=== PATIENT | male | born 1960 | race Hispanic/Latino ===

== ENCOUNTER 2018-03-25 15:31 | Emergency (ER) | payer SELFPAY ==
[2018-03-25] MEDS ORDERED: FLUORESCEIN SODIUM 0.6 MG/WRAP ONE (16:28)
[2018-03-25] MEDS ORDERED: TETRACAINE HCL 0.5% 2ML OPTH ONE (16:33)
--- NOTE | 2018-03-25 17:02 | EDPHYS ---
Physician Documentation [facility] Name: Natan Johnson Age: 58 yrs Sex: Male : 1960 Arrival Date: 03/25/2018 Time: 15:33 Bed 30 Private MD: None, None ED Physician Lisandro Bentley HPI: 03/25 15:45 This 58 yrs old Male presents to ER via Ambulatory with complaints of Left Eye pm1 Redness. 15:45 The patient is experiencing redness, The patient sustained None. to the left eye, pm1 caused by an unknown mechanism. Onset: The symptoms/episode began/occurred 2 day(s) ago. Duration: the symptoms are continuous. Aggravated by nothing. Alleviated by nothing. Associated signs and symptoms: Pertinent negatives: fever. Patient does not utilize any form of vision correction. Severity of symptoms: in the emergency department the symptoms are unchanged. The patient has experienced similar episodes in the past, multiple times. The patient has not recently seen a physician. Historical: - Allergies: 15:40 No Known Allergies; sg - Home Meds: 15:40 Metformin Oral [Active]; Blood Pressure Med [Active]; sg - PMHx: 15:40 Diabetes - NIDDM; Hypertension; sg - PSHx: 15:40 None; sg - Immunization history:: Adult Immunizations not up to date. - Social history:: Smoking status: Patient uses tobacco products, smokes one-half pack cigarettes per day. - Ebola Screening: : Patient negative for fever greater than or equal to 101.5 degrees Fahrenheit, and additional compatible Ebola Virus Disease symptoms Patient denies exposure to infectious person Patient denies travel to an Ebola-affected area in the 21 days before illness onset No symptoms or risks identified at this time. ROS: 15:45 Constitutional: Negative for fever, chills, and weight loss. pm1 15:45 ENT: Negative for injury, pain, and discharge, Neck: Negative for injury, pain, and swelling, Cardiovascular: Negative for chest pain, palpitations, and edema, Respiratory: Negative for shortness of breath, cough, wheezing, and pleuritic chest pain, Abdomen/GI: Negative for abdominal pain, nausea, vomiting, diarrhea, and constipation, Back: Negative for injury and pain, MS/Extremity: Negative for injury and deformity, Skin: Negative for injury, rash, and discoloration, Neuro: Negative for headache, weakness, numbness, tingling, and seizure. 15:45 Eyes: Positive for redness, Negative for discharge, itching, matting, pain, swelling, vision loss. Exam: 15:45 Constitutional: This is a well developed, well nourished patient who is awake, alert, pm1 and in no acute distress. Head/Face: Normocephalic, atraumatic. 15:45 Chest/axilla: Normal chest wall appearance and motion. Nontender with no deformity. No lesions are appreciated. Cardiovascular: Regular rate and rhythm with a normal S1 and S2. No gallops, murmurs, or rubs. Normal PMI, no JVD. No pulse deficits. Respiratory: Lungs have equal breath sounds bilaterally, clear to auscultation and percussion. No rales, rhonchi or wheezes noted. No increased work of breathing, no retractions or nasal flaring. Back: No spinal tenderness. No costovertebral tenderness. Full range of motion. Skin: Warm, dry with normal turgor. Normal color with no rashes, no lesions, and no evidence of cellulitis. MS/ Extremity: Pulses equal, no cyanosis. Neurovascular intact. Full, normal range of motion. 15:45 Eyes: Periorbital structures: appear normal, no abrasion, no cellulitis, no contusion, no ecchymosis, no erythema, no laceration, no swelling, Pupils: no acute changes, normal size, shape is regular, normal accomodation, normal reaction to light, Extraocular movements: intact throughout, Conjunctiva: chemosis, is not appreciated, exudate, is not appreciated, subconjunctival hemorrhage(s), seen in the left eye, at 9 o'clock, Corneas: are normal, Anterior chamber: normal, no hyphema, in left eye, Lids and lashes: appear normal, bilaterally, no evidence of trauma, drainage, is not appreciated, edema, is not appreciated. 15:45 Neuro: Orientation: is normal, Motor: is normal, moves all fours, Gait: is steady, at a normal pace, without difficulty. 16:55 Visual Acuity: I have reviewed the nursing documentation. pm1 16:55 Eyes: Corneas: abrasion, that is small, approximately 3 mm(s), on the left, at 7 o'clock, foreign body, is not appreciated, a fluorescein strip employed to appreciate the findings. Vital Signs: 15:40 BP 168 / 87; Pulse 71; Resp 14 S; Temp 97.9(TE); Pulse Ox 96% on R/A; Weight 81.65 kg sg (R); Height 5 ft. 7 in. (170.18 cm) (R); Pain 3/10; 16:31 BP 136 / 79; Pulse 67; Resp 17; Pulse Ox 97% on R/A; tw2 17:11 BP 133 / 79; Pulse 80; Resp 18; Pulse Ox 100% on R/A; Pain 0/10; mg2 15:40 Body Mass Index 28.19 (81.65 kg, 170.18 cm) Visual Acuity: 15:58 Left Eye Visual acuity 20/50, Pupil size 2 mm, Normal, React To Light, Reactive To mg2 Accomodation; Right Eye Visual acuity 20/20, Pupil size 2 mm, Normal, React To Light, Reactive To Accomodation; Without Lenses; MDM: 15:39 Patient medically screened. pm1 15:50 Data reviewed: vital signs. Data interpreted: Pulse oximetry: on room air is 96 %. pm1 Interpretation: normal. 16:58 Counseling: I had a detailed discussion with the patient and/or guardian regarding: the pm1 historical points, exam findings, and any diagnostic results supporting the discharge/admit diagnosis, the need for outpatient follow up, an opthalmologist, to return to the emergency department if symptoms worsen or persist or if there are any questions or concerns that arise at home. 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 Exp: mg2 05/13/2020. Lot #: [id number]. } Route: IM; Site: right deltoid; 17:11 Follow up: Response: No adverse reaction; Medication administered at discharge. mg2 17:10 Drug: Gentamicin Drops 0.3 % 2 drops Route: Ophthalmic; Site: left eye; mg2 17:10 Follow up: Response: No adverse reaction; Medication administered at discharge. mg2 Disposition: 03/26 06:45 Co-signature as Attending Physician, Lisandro Bentley MD I agree with the assessment and kaiden plan of care. Disposition: 03/25/18 17:01 Discharged to Home. Impression: Injury of conjunctiva and corneal abrasion without foreign body, Conjunctival hemorrhage, left eye. - Condition is Stable. - Discharge Instructions: Corneal Abrasion, Subconjunctival Hemorrhage. - Prescriptions for Gentamicin 0.3 % Ophthalmic Drops - instill 1 drop by OPHTHALMIC route every 4 hours for 7 days; 1 bottle. - Medication Reconciliation Form, Thank You Letter, Antibiotic Education form. - Follow up: Emergency Department; When: As needed; Reason: Worsening of condition. Follow up: Harshad Marin MD; When: 2 - 3 days; Reason: Recheck today's complaints, Continuance of care, Re-evaluation by your physician. - Problem is new. - Symptoms have improved. Signatures: Phil Mendoza RN RN Lisandro Bentley MD MD cha Marinas, Patrick, JEANNINE BLOCKMAN pm1 Obi Wilhelm RN RN mg2 Corrections: (The following items were deleted from the chart) 03/25 17:12 17:01 03/25/2018 17:01 Discharged to Home. Impression: Injury of conjunctiva and mg2 corneal abrasion without foreign body; Conjunctival hemorrhage, left eye. Condition is Stable. Forms are Medication Reconciliation Form, Thank You Letter, Antibiotic Education, Prescription Opioid Use. Follow up: Emergency Department; When: As needed; Reason: Worsening of condition. Follow up: Harshad Marin; When: 2 - 3 days; Reason: Recheck today's complaints, Continuance of care, Re-evaluation by your physician. Problem is new. Symptoms have improved. pm1
--- NOTE | 2018-03-25 17:02 | ER ---
Nurse's Notes [facility] Name: Natan Johnson Age: 58 yrs Sex: Male : 1960 Arrival Date: 03/25/2018 Time: 15:33 Bed 30 Private MD: None, None Diagnosis: Injury of conjunctiva and corneal abrasion without foreign body;Conjunctival hemorrhage, left eye Presentation: 03/25 15:30 Presenting complaint: Patient states: Left eye swelling, redness to sclera, and blurred sg vision since two days ago, denies trauma or foreign body. Transition of care: patient was not received from another setting of care. Onset of symptoms was March 25, 2018. Risk Assessment: Do you want to hurt yourself or someone else? Patient reports no desire to harm self or others. Initial Sepsis Screen: Does the patient meet any 2 criteria? No. Patient's initial sepsis screen is negative. Does the patient have a suspected source of infection? No. Patient's initial sepsis screen is negative. Care prior to arrival: None. 15:30 Method Of Arrival: Ambulatory sg 15:30 Acuity: JEB 4 sg Historical: - Allergies: 15:40 No Known Allergies; sg - Home Meds: 15:40 Metformin Oral [Active]; Blood Pressure Med [Active]; sg - PMHx: 15:40 Diabetes - NIDDM; Hypertension; sg - PSHx: 15:40 None; sg - Immunization history:: Adult Immunizations not up to date. - Social history:: Smoking status: Patient uses tobacco products, smokes one-half pack cigarettes per day. - Ebola Screening: : Patient negative for fever greater than or equal to 101.5 degrees Fahrenheit, and additional compatible Ebola Virus Disease symptoms Patient denies exposure to infectious person Patient denies travel to an Ebola-affected area in the 21 days before illness onset No symptoms or risks identified at this time. Screenin:39 Abuse screen: Denies threats or abuse. Denies injuries from another. Nutritional mg2 screening: No deficits noted. Tuberculosis screening: No symptoms or risk factors identified. Fall Risk None identified. Assessment: 15:43 General: Appears in no apparent distress. comfortable, Behavior is calm, cooperative. mg2 Pain: Complains of pain in left eye Pain does not radiate. Pain currently is 4 out of 10 on a pain scale. Quality of pain is described as aching, Pain began gradually, 1 day ago. Is intermittent. Neuro: Level of Consciousness is awake, alert, obeys commands, Oriented to person, place, time, situation. Cardiovascular: Capillary refill < 3 seconds Patient's skin is warm and dry. Respiratory: Airway is patent Respiratory effort is even, unlabored, Respiratory pattern is regular, symmetrical. GI: No signs and/or symptoms were reported involving the gastrointestinal system. : No signs and/or symptoms were reported regarding the genitourinary system. EENT: Eyes are tearing on inner aspect of conjunctiva of left eye redness. Derm: Skin is intact, Skin is pink, warm \T\ dry. normal. Musculoskeletal: Circulation, motion, and sensation intact. Vital Signs: 15:40 BP 168 / 87; Pulse 71; Resp 14 S; Temp 97.9(TE); Pulse Ox 96% on R/A; Weight 81.65 kg sg (R); Height 5 ft. 7 in. (170.18 cm) (R); Pain 3/10; 16:31 BP 136 / 79; Pulse 67; Resp 17; Pulse Ox 97% on R/A; tw2 17:11 BP 133 / 79; Pulse 80; Resp 18; Pulse Ox 100% on R/A; Pain 0/10; mg2 15:40 Body Mass Index 28.19 (81.65 kg, 170.18 cm) sg Visual Acuity: 15:58 Left Eye Visual acuity 20/50, Pupil size 2 mm, Normal, React To Light, Reactive To mg2 Accomodation; Right Eye Visual acuity 20/20, Pupil size 2 mm, Normal, React To Light, Reactive To Accomodation; Without Lenses; ED Course: 15:33 Patient arrived in ED. sb2 15:33 None, None is Private Physician. sb2 15:38 Corey Helms NP is PHCP. pm1 15:38 Lisandro Bentley MD is Attending Physician. pm1 15:39 Obi Wilhelm, FARIDEH is Primary Nurse. mg2 15:39 Triage completed. sg 15:39 Patient has correct armband on for positive identification. Bed in low position. Pulse mg2 ox on. NIBP on. Door closed. Warm blanket given. 15:45 Arm band placed on left wrist. mg2 16:59 Harshad Marin MD is Referral Physician. pm1 17:12 No provider procedures requiring assistance completed. Patient did not have IV access mg2 during this emergency room visit. 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 Exp: mg2 05/13/2020. Lot #: [id number]. } Route: IM; Site: right deltoid; 17:11 Follow up: Response: No adverse reaction; Medication administered at discharge. mg2 17:10 Drug: Gentamicin Drops 0.3 % 2 drops Route: Ophthalmic; Site: left eye; mg2 17:10 Follow up: Response: No adverse reaction; Medication administered at discharge. mg2 Outcome: 17:01 Discharge ordered by MD. pm1 17:12 Discharged to home ambulatory, with family. mg2 17:12 Condition: good 17:12 Discharge instructions given to patient, family, Instructed on discharge instructions, follow up and referral plans. medication usage, Demonstrated understanding of instructions, follow-up care, medications, Prescriptions given X 1. 17:12 Patient left the ED. mg2 Signatures: Phil Mendoza RN RN sg Corey Helms NP TEST AUTOMATION ARCHITECT pm1 Francheska Le RN RN tw2 Danica Romero sb2 Obi Wilhelm, FARIDEH RN mg2 Corrections: (The following items were deleted from the chart) 16:15 15:58 Right Eye Without Lenses, 20/20, Normal, Left Eye Without Lenses,, 50 ft/15 meter mg2 for left eye, blurry mg2
[2018-03-25] MEDS ORDERED: GENTAMICIN 0.3% OPTH DROP 5ML ONE (17:05)
[2018-03-25] MEDS ORDERED: TETANUS & DIPHTHERIA TOX,ADULT 0.5 ML VIAL ONE (17:06)
[2018-03-25 17:18] VITALS: TEMP 97.9
[2018-03-25 17:20] VITALS: BP 133/79; O2SAT 100
== END 2018-03-25 17:12 | disposition home or self-care (01) ==
LOC: ER 15:31
DX: S05.02XA Injury of conjunctiva and corneal abrasion without foreign body, left eye, initial encounter (principal); H11.32 Conjunctival hemorrhage, left eye; I10 Essential (primary) hypertension; E11.9 Type 2 diabetes mellitus without complications; F17.210 Nicotine dependence, cigarettes, uncomplicated; Z23 Encounter for immunization
CPT/HCPCS: 90714; 99283

== ENCOUNTER 2018-05-27 16:04 | Emergency (ER) | payer SELFPAY ==
[2018-05-27] MEDS ORDERED: NA CHLORIDE 0.9% 1,000 ML ONE (16:25)
[2018-05-27 16:26] LABS: Absolute Lymphocytes (CBC) 1.8 K/uL (0.7-4.9); Absolute Monocytes 0.6 K/uL (0.1-1.3); Absolute Neutrophil 6.3 K/uL (1.8-8.0); Basophils % 0.5 % (0-1.3); Eosinophils % 1.7 % (0-4.4); Hematocrit 46.1 % (39.6-49.0); Lymphocytes % 20.4 % (15.3-44.8); MCV 87.6 fL (80-100); Monocytes % 6.9 % (3.3-12.3); Protime INR 1.02; RBC Red Blood Cell Count 5.27 M/uL (4.33-5.43)
[2018-05-27] MEDS ORDERED: FOLIC ACID 5 MG/ML VIAL ONE (16:27)
--- NOTE | 2018-05-27 16:31 | RAD REPORT ---
EXAM DESCRIPTION: CT - Head Brain Wo Cont - 05/27/2018 4:16 pm CLINICAL HISTORY: Left-sided facial numbness arm and leg weakness, stroke symptoms COMPARISON: CT head August 2015 TECHNIQUE: Axial 5 mm thick images of the head were obtained without IV contrast. All CT scans are performed using dose optimization technique as appropriate and may include automated exposure control or mA/KV adjustment according to patient size. FINDINGS: No intracranial hemorrhage, mass, edema or shift of mid-line structures. No acute cortical based infarction identified. No cortical edema or sulcal effacement. The patient has asymmetric righ t cerebral atrophy change with little atrophy on the left. Chronic ischemic changes are seen in the r ight cerebral white matter and there is a small 1.5 centimeter area of old infarction in the right pa rietooccipital junction. Arterial and vascular calcifications are seen. Ventricles are in proportion to the volume loss. Mastoid air cells and visualized portions of the paranasal sinuses are clear. No acute bony findings. Findings telephoned to doctor Bentley 4:27 p.m. IMPRESSION: No intracranial hemorrhage and no acute cortical based infarction identified. 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 Nonhemorrhagic right cerebral infarctions could easily be masked by the chronic changes.
[2018-05-27 16:43] LABS: ALT/SGPT 18 U/L (12-78); AST/SGOT 10 U/L (15-37); Alkaline Phosphatase 132 U/L (45-117); BUN Blood Urea Nitrogen 21 mg/dL (7-18); Bicarbonate 26 mmol/L (21-32); Bilirubin Direct 0.1 mg/dL (0-0.2); Bilirubin Total 0.6 mg/dL (0.2-1.0); Glucose Level 178 mg/dL (74-106); Lipase 256 U/L (73-393); Magnesium 2.2 mg/dL (1.8-2.4); NT PRO-BNP 48 pg/mL (<125); Potassium 3.8 mmol/L (3.5-5.1); Sodium Level 139 mmol/L (136-145); Troponin (Emerg Dept Use Only) < 0.02 ng/mL (0.0-0.045)
--- NOTE | 2018-05-27 17:08 | RAD REPORT ---
EXAM DESCRIPTION: RAD - Chest Single View - 05/27/2018 4:42 pm CLINICAL HISTORY: Cough, left-sided extremity weakness COMPARISON: October 26 TECHNIQUE: AP portable chest image was obtained 1637 hours . FINDINGS: Lung volumes are very low. No acute right lung field finding. Ill-defined opacification lo wer left lung field may simply be atelectasis. Pneumonia is unlikely but not excluded. Follow-up can be performed with improved inspiratory effort. Heart size and vasculature within normal limits for sh allow inspiration. No measurable pleural effusion and no pneumothorax. No gross bony abnormality seen . No acute aortic findings suspected. IMPRESSION: Limited portable study due to very shallow inspiration. Minimal lateral left base infiltrate not entirely excluded.
--- NOTE | 2018-05-27 17:19 | EDPHYS ---
Physician Documentation [facility] Name: Natan Johnson Age: 58 yrs Sex: Male : 1960 Arrival Date: 05/27/2018 Time: 16:06 Bed 20 Private MD: ED Physician Lisandro Bentley HPI: 05/27 16:14 This 58 yrs old Male presents to ER via EMS with complaints of Numbness Of Arm.kaiden Historical: - Allergies: 16:11 No Known Allergies; jl7 - Home Meds: 16:11 blood pressure med [Active]; Metformin Oral [Active]; jl7 - PMHx: 16:11 Diabetes - NIDDM; Hypertension; jl7 - PSHx: 16:11 None; jl7 - Immunization history:: Adult Immunizations up to date. - Social history:: Smoking status: Patient uses tobacco products, smokes one-half pack cigarettes per day. - Ebola Screening: : No symptoms or risks identified at this time. ROS: 16:15 Constitutional: Negative for fever, chills, and weight loss, Eyes: Negative for injury, kaiden pain, redness, and discharge, ENT: Negative for injury, pain, and discharge, Neck: Negative for injury, pain, and swelling, Cardiovascular: Negative for chest pain, palpitations, and edema, Respiratory: Negative for shortness of breath, cough, wheezing, and pleuritic chest pain, Abdomen/GI: Negative for abdominal pain, nausea, vomiting, diarrhea, and constipation, Back: Negative for injury and pain, : Negative for injury, bleeding, discharge, and swelling, MS/Extremity: Negative for injury and deformity, Skin: Negative for injury, rash, and discoloration, Psych: Negative for depression, anxiety, suicide ideation, homicidal ideation, and hallucinations, Allergy/Immunology: Negative for hives, rash, and allergies, Endocrine: Negative for neck swelling, polydipsia, polyuria, polyphagia, and marked weight changes, Hematologic/Lymphatic: Negative for swollen nodes, abnormal bleeding, and unusual bruising. 16:15 Neuro: Positive for dizziness, speech changes, tingling, weakness, of the face, left arm and left leg. Exam: 16:15 Constitutional: This is a well developed, well nourished patient who is awake, alert, kaiden and in no acute distress. Head/Face: Normocephalic, atraumatic. Eyes: Pupils equal round and reactive to light, extra-ocular motions intact. Lids and lashes normal. Conjunctiva and sclera are non-icteric and not injected. Cornea within normal limits. Periorbital areas with no swelling, redness, or edema. ENT: Nares patent. No nasal discharge, no septal abnormalities noted. Tympanic membranes are normal and external auditory canals are clear. Oropharynx with no redness, swelling, or masses, exudates, or evidence of obstruction, uvula midline. Mucous membranes moist. Neck: Trachea midline, no thyromegaly or masses palpated, and no cervical lymphadenopathy. Supple, full range of motion without nuchal rigidity, or vertebral point tenderness. No Meningismus. Chest/axilla: Normal chest wall appearance and motion. Nontender with no deformity. No lesions are appreciated. Cardiovascular: Regular rate and rhythm with a normal S1 and S2. No gallops, murmurs, or rubs. Normal PMI, no JVD. No pulse deficits. Respiratory: Lungs have equal breath sounds bilaterally, clear to auscultation and percussion. No rales, rhonchi or wheezes noted. No increased work of breathing, no retractions or nasal flaring. Abdomen/GI: Soft, non-tender, with normal bowel sounds. No distension or tympany. No guarding or rebound. No evidence of tenderness throughout. Back: No spinal tenderness. No costovertebral tenderness. Full range of motion. Male : Normal genitalia with no discharge or lesions. Skin: Warm, dry with normal turgor. Normal color with no rashes, no lesions, and no evidence of cellulitis. MS/ Extremity: Pulses equal, no cyanosis. Neurovascular intact. Full, normal range of motion. Psych: Awake, alert, with orientation to person, place and time. Behavior, mood, and affect are within normal limits. 16:15 Neuro: Orientation: is normal, appropriate for stated age, no acute changes, Mentation: is normal, appropriate for stated age, no acute changes, Memory: is normal, appropriate for stated age, no acute changes, Cranial nerves: grossly normal, is grossly normal based on the patient's age, no acute changes, Motor: strength is 4/5 in the left arm and left leg, Sensation: numbness, that is mild, of the face, left arm and left leg, Gait: not tested. Deep tendon reflexes are 2+ (normal) in the bilateral brachioradialis, bicep, tricep and patellar and Achilles tendons, Babinski testing is normal, seizure activity, is not displayed by the patient. 17:18 Radiologist reports: see report [facility] Vital Signs: 16:11 BP 150 / 94; Pulse 82; Resp 16 S; Temp 98.6(O); Pulse Ox 97% on R/A; Weight 84.82 kg 7 (R); Height 5 ft. 7 in. (170.18 cm) (R); Pain 0/10; 17:06 BP 122 / 70; Pulse 70; Resp 15; Pulse Ox 96% on R/A; 5 17:43 BP 153 / 81; Pulse 84; Resp 16; Pulse Ox 100% ; jl7 18:09 BP 179 / 89; Pulse 68; Resp 16 S; Pulse Ox 100% on R/A; jl7 16:11 Body Mass Index 29.29 (84.82 kg, 170.18 cm) 7 NIH Stroke Scale Scores: 16:18 NIHSS Score: 1 [facility] 17:18 NIHSS Score: 3 [facility] MDM: 16:06 Patient medically screened. [facility] 16:17 Data reviewed: vital signs, nurses notes, lab test result(s), EKG, radiologic studies, [facility] CT scan, MRI, plain films. 17:22 ED course: symptoms greater than 4.5 hours, not a tpa candidate. [facility] 05/27 16:10 Order name: Basic Metabolic Panel; Complete Time: 17:13 [facility] 05/27 16:10 Order name: CBC with Diff; Complete Time: 17:13 [facility] 05/27 16:10 Order name: LFT's; Complete Time: 17:13 [facility] 05/27 16:10 Order name: Magnesium; Complete Time: 17:13 [facility] 05/27 16:10 Order name: NT PRO-BNP; Complete Time: 17:13 [facility] 05/27 16:10 Order name: PT-INR; Complete Time: 17:13 [facility] 05/27 16:10 Order name: Troponin (emerg Dept Use Only); Complete Time: 17:13 [facility] 05/27 16:10 Order name: XRAY Chest (1 view); Complete Time: 17:13 [facility] 05/27 16:10 Order name: Lipase; Complete Time: 17:13 [facility] 05/27 16:10 Order name: CT Head Brain wo Cont; Complete Time: 17:13 [facility] 05/27 16:10 Order name: CRP; Complete Time: 17:13 [facility] 05/27 16:10 Order name: Sed Rate; Complete Time: 17:13 [facility] 05/27 16:10 Order name: EKG; Complete Time: 16:11 [facility] 05/27 16:10 Order name: Cardiac monitoring; Complete Time: 16:18 [facility] 05/27 16:10 Order name: EKG - Nurse/Tech; Complete Time: 16:18 [facility] 05/27 16:10 Order name: IV Saline Lock; Complete Time: 16:18 [facility] 05/27 16:10 Order name: Labs collected and sent; Complete Time: 16:17 [facility] 05/27 16:10 Order name: O2 Per Protocol; Complete Time: 16:17 [facility] 05/27 16:10 Order name: O2 Sat Monitoring; Complete Time: 16:17 [facility] Administered Medications: 16:25 Drug: NS 0.9% 1000 ml Route: IV; Rate: 1 bolus; Site: right antecubital; jl7 17:15 Follow up: Response: No adverse reaction; IV Status: Completed infusion jl7 16:26 Drug: foLIC Acid 1 mg Route: IVPB; Site: right antecubital; jl7 16:27 Follow up: IV Status: Completed infusion jl7 17:42 Follow up: Response: No adverse reaction jl7 17:39 Drug: Aspirin Chewable Tablet 324 mg Route: PO; jl7 17:43 Follow up: Response: No adverse reaction jl7 17:39 Drug: PlaVIX 75 mg Route: PO; jl7 17:43 Follow up: Response: No adverse reaction jl7 Point of Care Testing: Blood Glucose: 16:11 Blood Glucose: 166 mg/dL; jl7 Ranges: Critical Glucose Levels:Adult <50 mg/dl or >400 mg/dl <40 mg/dl or >180 mg/dl Disposition: 05/27/18 17:18 Transfer ordered to [facility]. Diagnosis are Cerebral infarction, Aphasia following cerebral infarction, Type 2 diabetes mellitus, Essential (primary) hypertension. - Reason for transfer: Higher level of care. - Accepting physician is dr escalante. - Condition is Fair. - Problem is new. - Symptoms have improved. NIH Stroke Scale - NIH Stroke Score Date: 05/27/2018 Time: 16:18 Total Score = 1 1a. Level of Consciousness (LOC) - 0(Alert) 1b. Level of Consciousness (LOC) (Year \T\ Age) - 0(Both) 1c. LOC Commands (Open \T\ Closes Eyes/Auto Bumper Straightener) - 0(Both) 2. Best Gaze (Lateral Gaze Paresis) - 0(Normal) 3. Visual Field Loss - 0(No visual loss) 4. Facial Palsy - 0(Normal) 5a. Left Arm: Motor (10-second hold) - 0(No drift) 5b. Right Arm: Motor (10-second hold) - 0(No drift) 6a. Left Leg: Motor (5-second hold - always test supine) - 0(No drift) 6b. Right Leg: Motor (5-second hold - always test supine) - 0(No drift) 7. Limb Ataxia (finger/nose \T\ heel/butcher - test with eyes open) - 0(Absent) 8. Sensory Loss (pinprick arms/legs/face) - 1(Mild to moderate loss) 9. Best Language: Aphasia (description/naming/reading) - 0(No aphasia) 10. Dysarthria (speech clarity - read or repeat words) - 0(Normal) 11. Extinction and Inattention (visual/tactile/auditory/spatial/personal) - 0(No abnormality) Initials: jl7 NIH Stroke Scale - NIH Stroke Score Date: 05/27/2018 Time: 17:18 Total Score = 3 1a. Level of Consciousness (LOC) - 0(Alert) 1b. Level of Consciousness (LOC) (Year \T\ Age) - 0(Both) 1c. LOC Commands (Open \T\ Closes Eyes/Auto Bumper Straightener) - 0(Both) 2. Best Gaze (Lateral Gaze Paresis) - 0(Normal) 3. Visual Field Loss - 0(No visual loss) 4. Facial Palsy - 0(Normal) 5a. Left Arm: Motor (10-second hold) - 0(No drift) 5b. Right Arm: Motor (10-second hold) - 0(No drift) 6a. Left Leg: Motor (5-second hold - always test supine) - 0(No drift) 6b. Right Leg: Motor (5-second hold - always test supine) - 0(No drift) 7. Limb Ataxia (finger/nose \T\ heel/butcher - test with eyes open) - 1(Present in one limb) 8. Sensory Loss (pinprick arms/legs/face) - 1(Mild to moderate loss) 9. Best Language: Aphasia (description/naming/reading) - 1(Mild to moderate aphasia) 10. Dysarthria (speech clarity - read or repeat words) - 0(Normal) 11. Extinction and Inattention (visual/tactile/auditory/spatial/personal) - 0(No abnormality) Initials: kaiden Signatures: Dispatcher [employer] EDLisandro Fontanez MD MD cha Pena, Laura, RN RN lp1 Chely Montes RN RN jl7 Corrections: (The following items were deleted from the chart) 19:23 17:18 05/27/2018 17:18 Transfer ordered to [facility]. lp1 Diagnosis is Cerebral infarction; Aphasia following cerebral infarction; Type 2 diabetes mellitus; Essential (primary) hypertension. Reason for transfer: Higher level of care. Accepting physician is dr escalante. Condition is Fair. Problem is new. Symptoms have improved. kaiden
--- NOTE | 2018-05-27 17:19 | ER ---
Nurse's Notes [facility] Name: Natan Johnson Age: 58 yrs Sex: Male : 1960 Arrival Date: 05/27/2018 Time: 16:06 Bed 20 Private MD: Diagnosis: Cerebral infarction;Aphasia following cerebral infarction;Type 2 diabetes mellitus;Essential (primary) hypertension Presentation: 05/27 16:06 Presenting complaint: Presenting complaint: Patient states: Left sided numbness of jl7 face, arm, leg. First occurred last night at 2300 and again since 0600 this morning. Presenting complaint: EMS states: Family called us thinking he might be having a stroke, he slurred his words and is c/o numbness to the whole body. Transition of care: patient was not received from another setting of care. Onset of symptoms was May 26, 2018 at 23:00. Risk Assessment: Do you want to hurt yourself or someone else? Patient reports no desire to harm self or others. Initial Sepsis Screen: Does the patient meet any 2 criteria? No. Patient's initial sepsis screen is negative. Does the patient have a suspected source of infection? No. Patient's initial sepsis screen is negative. Care prior to arrival: None. 16:06 Method Of Arrival: EMS: [facility] 16:06 Acuity: JBE 2 jl7 Triage Assessment: 16:11 General: Appears in no apparent distress. uncomfortable, Behavior is calm, cooperative, jl7 appropriate for age. Pain: Denies pain. EENT: No signs and/or symptoms were reported regarding the EENT system. Neuro: Level of Consciousness is awake, alert, obeys commands, Oriented to person, place, time, situation, Drop Wire Aligner are equal bilaterally Moves all extremities. Speech is normal, Facial symmetry appears normal, Pupils are PERRLA. Cardiovascular: Patient's skin is warm and dry. Respiratory: Airway is patent Respiratory effort is even, unlabored, Respiratory pattern is regular, symmetrical. GI: No signs and/or symptoms were reported involving the gastrointestinal system. Patient currently denies diarrhea, nausea, vomiting. : No signs and/or symptoms were reported regarding the genitourinary system. Derm: Skin is pink, warm \T\ dry. Musculoskeletal: No signs and/or symptoms reported regarding the musculoskeletal system. Historical: - Allergies: 16:11 No Known Allergies; jl7 - Home Meds: 16:11 blood pressure med [Active]; Metformin Oral [Active]; jl7 - PMHx: 16:11 Diabetes - NIDDM; Hypertension; jl7 - PSHx: 16:11 None; jl7 - Immunization history:: Adult Immunizations up to date. - Social history:: Smoking status: Patient uses tobacco products, smokes one-half pack cigarettes per day. - Ebola Screening: : No symptoms or risks identified at this time. Screenin:15 Abuse screen: Denies threats or abuse. Denies injuries from another. Nutritional jl7 screening: No deficits noted. Tuberculosis screening: No symptoms or risk factors identified. Fall Risk IV access (20 points). Total Parisi Fall Scale indicates No Risk (0-24 pts). 16:18 The patient has not been NPO before screening. The patient is currently on the jl7 following diet: Regular The patient is alert, able to follow commands. The patient does not exhibit slurred or garbled speech The patient is not exhibiting difficulty speaking. The patient does not exhibit difficulty understanding words. The patient is able to swallow own secretions with no drooling or need for suction. Patient tolerated one teaspoon of water. No drooling, immediate coughing, gurgling, or clearing of the throat was noted. The patient tolerated 90mL of water. No drooling, immediate coughing, gurgling, or clearing of the throat was noted. The patient passed the bedside swallow screening. Oral medications may be given as ordered. Contact Physician for further diet orders. Provider notified of bedside swallow screening results: Lisandro Bentley MD. Assessment: 16:10 Reassessment: See triage assessment. [facility] 16:12 Reassessment: pt to CT with FARIDEH Goodwin. jl7 16:18 General: Back from CT at this time. . ss 17:30 Reassessment: No changes from previously documented assessment. Patient and/or family jl7 updated on plan of care and expected duration. Pain level reassessed. Patient is alert, oriented x 3, equal unlabored respirations, skin warm/dry/pink. Patient states feeling better. 18:07 Reassessment: Report given to receiving nurse FARIDEH Streeter; pt refusing to sign for jl7 transfer at this time. Dr. Benltey explained the benefits and risks of not transferring, pt wants to talk to daughter before signing the transfer papers. Will continue to monitor. 18:41 Reassessment: Pt signed transfer form. jl7 19:01 Reassessment: Patient appears in no apparent distress at this time. Patient and family lp1 aware of pending transfer. Neuro: Level of Consciousness is awake, alert, obeys commands, Oriented to person, place, time, situation, Speech is normal. 19:23 Reassessment: EMS at bedside for transfer. lp1 Vital Signs: 16:11 BP 150 / 94; Pulse 82; Resp 16 S; Temp 98.6(O); Pulse Ox 97% on R/A; Weight 84.82 kg jl7 (R); Height 5 ft. 7 in. (170.18 cm) (R); Pain 0/10; 17:06 BP 122 / 70; Pulse 70; Resp 15; Pulse Ox 96% on R/A; mh5 17:43 BP 153 / 81; Pulse 84; Resp 16; Pulse Ox 100% ; jl7 18:09 BP 179 / 89; Pulse 68; Resp 16 S; Pulse Ox 100% on R/A; jl7 16:11 Body Mass Index 29.29 (84.82 kg, 170.18 cm) jl7 NIH Stroke Scale Scores: 16:18 NIHSS Score: 1 jl7 17:18 NIHSS Score: 3 [facility] ED Course: 16:06 Patient arrived in ED. jl7 16:06 Lisandro Bentley MD is Attending Physician. [facility] 16:10 Triage completed. jl7 16:11 Arm band placed on right wrist. 7 16:15 Patient has correct armband on for positive identification. Placed in gown. Bed in low jl7 position. Call light in reach. Side rails up X2. ekg monitor tech on. Pulse ox on. NIBP on. Warm blanket given. 16:15 Initial lab(s) drawn, by ED staff, sent to lab. Inserted saline lock: 20 gauge in right jl7 antecubital area, using aseptic technique. ,using aseptic technique. Inserted by FARIDEH Goodwin Blood collected. 16:16 CT Head Brain wo Cont In Process Unspecified. EDMS 16:16 Chely Montes RN is Primary Nurse. 7 16:17 EKG done, by applied technologist. reviewed by Lisandro Bentley MD. sm3 16:41 X-ray completed. Portable x-ray completed in exam room. Patient tolerated procedure az well. 16:42 XRAY Chest (1 view) In Process Unspecified. EDMS 18:41 No provider procedures requiring assistance completed. Patient transferred, IV remains jl7 in place. intact, No redness/swelling at site. 18:59 Primary Nurse role handed off by Chely Montes RN jl7 19:01 Ashli Cruz, RN is Primary Nurse. lp1 Administered Medications: 16:25 Drug: NS 0.9% 1000 ml Route: IV; Rate: 1 bolus; Site: right antecubital; jl7 17:15 Follow up: Response: No adverse reaction; IV Status: Completed infusion jl7 16:26 Drug: foLIC Acid 1 mg Route: IVPB; Site: right antecubital; jl7 16:27 Follow up: IV Status: Completed infusion jl7 17:42 Follow up: Response: No adverse reaction jl7 17:39 Drug: Aspirin Chewable Tablet 324 mg Route: PO; jl7 17:43 Follow up: Response: No adverse reaction jl7 17:39 Drug: PlaVIX 75 mg Route: PO; jl7 17:43 Follow up: Response: No adverse reaction jl7 Point of Care Testing: Blood Glucose: 16:11 Blood Glucose: 166 mg/dL; jl7 Ranges: Outcome: 17:18 ER care complete, transfer ordered by MD. richey 18:41 Transferred by ground EMS to [facility], Transfer form completed. jl7 18:41 Condition: stable 18:41 Discharge instructions given to patient, family, Instructed on the need for transfer, Demonstrated understanding of instructions. 19:23 Patient left the ED. lp1 NIH Stroke Scale - NIH Stroke Score Date: 05/27/2018 Time: 16:18 Total Score = 1 1a. Level of Consciousness (LOC) - 0(Alert) 1b. Level of Consciousness (LOC) (Year \T\ Age) - 0(Both) 1c. LOC Commands (Open \T\ Closes Eyes/Lawn Mower Mechanic) - 0(Both) 2. Best Gaze (Lateral Gaze Paresis) - 0(Normal) 3. Visual Field Loss - 0(No visual loss) 4. Facial Palsy - 0(Normal) 5a. Left Arm: Motor (10-second hold) - 0(No drift) 5b. Right Arm: Motor (10-second hold) - 0(No drift) 6a. Left Leg: Motor (5-second hold - always test supine) - 0(No drift) 6b. Right Leg: Motor (5-second hold - always test supine) - 0(No drift) 7. Limb Ataxia (finger/nose \T\ heel/butcher - test with eyes open) - 0(Absent) 8. Sensory Loss (pinprick arms/legs/face) - 1(Mild to moderate loss) 9. Best Language: Aphasia (description/naming/reading) - 0(No aphasia) 10. Dysarthria (speech clarity - read or repeat words) - 0(Normal) 11. Extinction and Inattention (visual/tactile/auditory/spatial/personal) - 0(No abnormality) Initials: jl7 NIH Stroke Scale - NIH Stroke Score Date: 05/27/2018 Time: 17:18 Total Score = 3 1a. Level of Consciousness (LOC) - 0(Alert) 1b. Level of Consciousness (LOC) (Year \T\ Age) - 0(Both) 1c. LOC Commands (Open \T\ Closes Eyes/Lawn Mower Mechanic) - 0(Both) 2. Best Gaze (Lateral Gaze Paresis) - 0(Normal) 3. Visual Field Loss - 0(No visual loss) 4. Facial Palsy - 0(Normal) 5a. Left Arm: Motor (10-second hold) - 0(No drift) 5b. Right Arm: Motor (10-second hold) - 0(No drift) 6a. Left Leg: Motor (5-second hold - always test supine) - 0(No drift) 6b. Right Leg: Motor (5-second hold - always test supine) - 0(No drift) 7. Limb Ataxia (finger/nose \T\ heel/butcher - test with eyes open) - 1(Present in one limb) 8. Sensory Loss (pinprick arms/legs/face) - 1(Mild to moderate loss) 9. Best Language: Aphasia (description/naming/reading) - 1(Mild to moderate aphasia) 10. Dysarthria (speech clarity - read or repeat words) - 0(Normal) 11. Extinction and Inattention (visual/tactile/auditory/spatial/personal) - 0(No abnormality) Initials: kaiden Signatures: Dispatcher [employer] EDLisandro Fontanez MD MD cha Smirch, Shelby RN RN ss Ashli Cruz RN RN lp1 Alesia Boateng 5 Chely Montes RN RN jl7 Genie Arita 3 Fannie Adrian
[2018-05-27] MEDS ORDERED: ASPIRIN 81 MG CHEWABLE TABLET ONE (17:41)
[2018-05-27] MEDS ORDERED: CLOPIDOGREL 75 MG TABLET ONE (17:41)
[2018-05-27 19:49] VITALS: TEMP 98.6
[2018-05-27 19:52] VITALS: O2SAT 100
[2018-05-27 19:53] VITALS: BP 179/89
--- NOTE | 2018-05-27 23:08 | EKG ---
Test Date: 2018-05-27 Test Time: 16:06:58 Public Relations Manager: RUFUS MEASUREMENT RESULTS: Intervals: Rate: 80 KS: 156 QRSD: 82 QT: 376 QTc: 433 Skillman: P: 30 KS: 156 QRS: -2 T: 86 INTERPRETIVE STATEMENTS: Normal sinus rhythm Normal ECG Compared to ECG 10/26/2017 18:18:31 no significant change from previous ECG Electronically Signed On 05-27-18 23:08:04 CDT by Dwight Malhotra
== END 2018-05-27 19:23 | disposition short-term general hospital (02) ==
LOC: ER 16:04
DX: I63.9 Cerebral infarction, unspecified (principal); R47.01 Aphasia; I10 Essential (primary) hypertension; E11.9 Type 2 diabetes mellitus without complications; R29.703 NIHSS score 3; F17.210 Nicotine dependence, cigarettes, uncomplicated
CPT/HCPCS: 36415; 70450; 71045; 80048; 80076; 82962; 83690; 83735; 83880; 84484; 85025; 85610; 85652; 86140; 93005; 96361; 96374; 99285; J7030

== ENCOUNTER 2018-12-06 13:59 | Emergency (ER) | payer OTHER, SELFPAY ==
--- OUTSIDE RECORDS SUMMARY | 2018-12-06 14:02 | XMS REPORT | Clinical Summary ---
:1960 Author Organization [facility] Address [address] [place] [address] Care Team Providers Name Role Phone Unavailable Primary Care Provider Unavailable Allergies No Known Allergies Medications Medication Sig Dispensed Refills Start Date End Date Status aspirin 325 MG tablet Take 1 tablet 30 tablet 11 05/30/2018 05/30/2019 Active (325 mg total) by mouth daily. atorvastatin (LIPITOR) Take 2 tablets 60 tablet 11 05/29/2018 05/29/2019 Active 40 MG tablet (80 mg total) by mouth nightly. Active Problems Problem Noted Date Stroke 05/27/2018 Encounters Date Type Specialty Care Team Description 05/27/2018 - Hospital Encounter General Internal SandersLou Cerebrovascular accident (CVA), unspecified mechanism (HCC); 05/29/2018 Medicine MD Anastasiya Essential hypertension Connie Gonzalez MD after 12/05/2017 Immunizations Name Dates Previously Given Next Due Influenza Four-QIV Non-PF 5+ YR 05/28/2018 Social History Tobacco Use Types Packs/Day Years Used Date Never Assessed Sex Assigned at Date Recorded Not on file Job Start Date Occupation Industry Not on file Not on file Not on file Travel History Travel Start Travel End No recent travel history available. 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 MR BRAIN WITHOUT IV Routine 05/29/2018 2:29 Results for this CONTRAST PM CDT procedure are in the results section. MR MRA NECK WITHOUT IV Routine 05/29/2018 2:29 Results for this CONTRAST PM CDT procedure are in the results section. MR MRA HEAD WITHOUT Routine 05/29/2018 2:29 Results for this CONTRAST PM CDT procedure are in the results section. POCT-GLUCOSE METER Routine 05/29/2018 1:05 Results for this PM CDT procedure are in the results section. POCT-GLUCOSE METER Routine 05/29/2018 7:04 Results for this AM CDT procedure are in the results section. CBC W/PLT COUNT & AUTO Routine 05/29/2018 6:25 Results for this DIFFERENTIAL AM CDT procedure are in the results section. APTT Routine 05/29/2018 6:25 Results for this AM CDT procedure are in the results section. PROTHROMBIN TIME/INR Routine 05/29/2018 6:25 Results for this AM CDT procedure are in the results section. CBC W/PLT COUNT & AUTO Routine 05/29/2018 6:25 Results for this DIFFERENTIAL AM CDT procedure are in the results section. BASIC METABOLIC PANEL Routine 05/29/2018 6:25 Results for this (7) AM CDT procedure are in the results section. POCT-GLUCOSE METER Routine 05/28/2018 9:43 Results for this PM CDT procedure are in the results section. POCT-GLUCOSE METER Routine 05/28/2018 5:49 Results for this PM CDT procedure are in the results section. POCT-GLUCOSE METER Routine 05/28/2018 4:41 Results for this PM CDT procedure are in the results section. POCT-GLUCOSE METER Routine 05/28/2018 12:32 Results for this PM CDT procedure are in the results section. C-REACTIVE PROTEIN Routine 05/28/2018 12:04 Results for this PM CDT procedure are in the results section. VITAMIN B12 AND FOLATE Routine 05/28/2018 12:04 Results for this PM CDT procedure are in the results section. HIV-1 ANTIGEN WITH Routine 05/28/2018 12:04 Results for this HIV-1/2 ANTIBODY PM CDT procedure are in the results section. TSH/FREE T4 IF Routine 05/28/2018 12:04 Results for this INDICATED PM CDT procedure are in the results section. RPR Routine 05/28/2018 12:04 Results for this PM CDT procedure are in the results section. LIPID PANEL Routine 05/28/2018 12:04 Results for this PM CDT procedure are in the results section. HEMOGLOBIN A1C Routine 05/28/2018 12:04 Results for this PM CDT procedure are in the results section. POCT-GLUCOSE METER Routine 05/28/2018 7:25 Results for this AM CDT procedure are in the results section. CBC W/PLT COUNT & AUTO Routine 05/28/2018 3:58 Results for this DIFFERENTIAL AM CDT procedure are in the results section. APTT Routine 05/28/2018 3:58 Results for this AM CDT procedure are in the results section. PROTHROMBIN TIME/INR Routine 05/28/2018 3:58 Results for this AM CDT procedure are in the results section. HEMOGLOBIN A1C Routine 05/28/2018 3:58 Results for this AM CDT procedure are in the results section. LIPID PANEL Routine 05/28/2018 3:58 Results for this AM CDT procedure are in the results section. HEPATIC FUNCTION PANEL Routine 05/28/2018 3:58 Results for this AM CDT procedure are in the results section. CBC W/PLT COUNT & AUTO Routine 05/28/2018 3:58 Results for this DIFFERENTIAL AM CDT procedure are in the results section. BASIC METABOLIC PANEL Routine 05/28/2018 3:58 Results for this (7) AM CDT procedure are in the results section. CAROTID DOPPLER Routine 05/28/2018 12:10 Results for this BILATERAL AM CDT procedure are in the results section. POCT-GLUCOSE METER Routine 05/27/2018 10:55 Results for this PM CDT procedure are in the results section. 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 Narrative Performed At ECHOCARDIOGRAM REPORT - SCAN (05/30/2018 3:20 PM CDT) Narrative Performed At Transthoracic 2D echo w/ doppler (cw/pw/color) (05/29/2018 4:02 PM CDT) Ejection Fraction [facility] Narrative Performed At Transthoracic Echocardiography Report (TTE) [facility] Demographics Patient Name NATAN JOHNSON Date of Study 05/29/2018 [id number] GenderMale Visit Number [id number] Unknown [id number] Room Number 911 Number Date of Birth1960Referring Physician FABIEN WALKER Age58 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 Clinical History HGB 15.2 HCT 44.2 % Contrast Medium: Bubble Study. Height: 67 inches Weight: 84.82 kg (187 lbs) BSA: 1.97 m^2 BMI: 29.29 kg/m^2 HR: 73 bpm BP: 139/69 mmHg Summary IV saline contrast injection was negative for a PFO (patent foramen ovale) at rest and post Valsalva . The left ventricle is chamber size (by PSLAX dimension) is normal (male - LVIDd 4.2-5.8cm) . Normal LV wall thickness. All of the LV segments contract normally . Global LV systolic function normal . Estimated LVEF by qualitative assessment is normal (>60%) . Grade 1 diastolic dysfunction (impaired relaxation and low-normal LA pressure). Normal (cardiac index 2-3 L/min/m2) cardiac output state at rest is noted. Otherwise, essentially normal exam. Signature Findings Rhythm/BPRegular sinus rhythm during the exam. Left Ventricle The left ventricle is chamber size (by PSLAX di mension) is normal (male - LVIDd 4.2-5.8cm) . No rmal LV wall thickness. All of the LV segments co ntract normally . Global LV systolic function no rmal . Estimated LVEF by qualitative assessment is normal (>60%) . Grade 1 diastolic dysfunction (i mpaired relaxation and low-normal LA pressure). No rmal (cardiac index 2-3 L/min/m2) cardiac output st ate at rest is noted. Left AtriumLA size is normal (16-34 ml/m2) . Right VentricleRV chamber size is mildly enlarged . Gl obal RV systolic function is normal . Right Atrium RA cavity size is mildly enlarged . Atrial SeptumIV saline contrast injection was negative for a PFO (p atent foramen ovale) at rest and post Valsalva . Aortic Valve Normal AoV structure and function. Mitral Valve Normal MV structure and function. Tricuspid ValveTV structure is normal. A trace of tricuspid re gurgitation. Un able to estimate peak systolic PA pressure; in adequate TR velocity signal. Pulmonic Valve Normal PV structure and function. AortaAortic root size (SInus of Valsalva diameter) is no rmal . Proximal ascending aorta size mildly di lated . 3.6 cm PericardiumNo pericardial effusion is visualized. IVC/SVC/PA/PV/PleuralThe right upper pulmonary vein (RUPV) is normal . Th e estimated RA pressure by IVC dynamics 5-10mmHg . Chambers/Structures Left Atrium LA Volume: 59.49 mlLA Area: 17.5 cm^2 LA Vol. Index: 30 ml/m^2 Left Ventricle LVIDd: 4.68 cm LV Septum Diastolic: 1.04 cm LV PW Diastolic: 1.06 cm LVOT Diameter: 2.06 cm Right Atrium RA Vol. (Sngl Plane): 58.12 ml Aorta Ao Root S of [place].: 3.19 cmAscending Aorta: 3.61 cm Doppler/Quantitative Measurements Mitral Valve MV Peak E-Wave: 0.54 m/sMV Peak A-Wave: 0.83 m/s P1/2t: 96.4 msecE/ A Ratio: 0.65 Peak Gradient: 1.15 mmHg Deceleration Time: 353.8 msec MV Area (PHT): 2.28 cm^2 MV Jimmie. 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 Clinical History HGB 15.2 HCT 44.2 % Contrast Medium: Bubble Study. Height: 67 inches Weight: 84.82 kg (187 lbs) BSA: 1.97 m^2 BMI: 29.29 kg/m^2 HR: 73 bpm BP: 139/69 mmHg Summary IV saline contrast injection was negative for a PFO (patent foramen ovale) at rest and post Valsalva . The left ventricle is chamber size (by PSLAX dimension) is normal (male - LVIDd 4.2-5.8cm) . Normal LV wall thickness. All of the LV segments contract normally . Global LV systolic function normal . Estimated LVEF by qualitative assessment is normal (>60%) . Grade 1 diastolic dysfunction (impaired relaxation and low-normal LA pressure). Normal (cardiac index 2-3 L/min/m2) cardiac output state at rest is noted. Otherwise, essentially normal exam. Signature Findings Rhythm/BP Regular sinus rhythm during the exam. Left Ventricle The left ventricle is chamber size (by PSLAX dimension) is normal (male - LVIDd 4.2-5.8cm) . Normal LV wall thickness. All of the LV segments contract normally . Global LV systolic function normal . Estimated LVEF by qualitative assessment is normal (>60%) . Grade 1 diastolic dysfunction (impaired relaxation and low-normal LA pressure). Normal (cardiac index 2-3 L/min/m2) cardiac output state at rest is noted. Left Atrium LA size is normal (16-34 ml/m2) . Right Ventricle RV chamber size is mildly enlarged . Global RV systolic function is normal . Right Atrium RA cavity size is mildly enlarged . Atrial Septum IV saline contrast injection was negative for a PFO (patent foramen ovale) at rest and post Valsalva . Aortic Valve Normal AoV structure and function. Mitral Valve Normal MV structure and function. Tricuspid Valve TV structure is normal. A trace of tricuspid regurgitation. Unable to estimate peak systolic PA pressure; inadequate TR velocity signal. Pulmonic Valve Normal PV structure and function. Aorta Aortic root size (SInus of Valsalva diameter) is normal . Proximal ascending aorta size mildly dilated . 3.6 cm Pericardium No pericardial effusion is visualized. IVC/SVC/PA/PV/Pleural The right upper pulmonary vein (RUPV) is normal . The estimated RA pressure by IVC dynamics 5-10mmHg . Chambers/Structures Left Atrium LA Volume: 59.49 ml LA Area: 17.5 cm^2 LA Vol. Index: 30 ml/m^2 Left Ventricle LVIDd: 4.68 cm LV Septum Diastolic: 1.04 cm LV PW Diastolic: 1.06 cm LVOT Diameter: 2.06 cm Right Atrium RA Vol. (Sngl Plane): 58.12 ml Aorta Ao Root S of [place].: 3.19 cm Ascending Aorta: 3.61 cm Doppler/Quantitative Measurements Mitral Valve MV Peak E-Wave: 0.54 m/s MV Peak A-Wave: 0.83 m/s P1/2t: 96.4 msec E/A Ratio: 0.65 Peak Gradient: 1.15 mmHg Deceleration Time: 353.8 msec MV Area (PHT): 2.28 cm^2 MV Jimmie. Peak: Tissue Doppler E' Lateral Velocity: 0.08 m/s E/E': 6.55 LVOT Peak Velocity: 0.81 m/s Peak Gradient: 2.62 mmHg Mean Velocity: 0.55 m/s Mean Gradient: 1.35 mmHg LVOT Diameter: 2.06 cm LVOT VTI: 21.85 cm LVOT Area: 3.33 cm^2 LVOT SV:72.79 ml LVOT CO: 5.31 l/min LVOT CI: 2.7 l/min/m^2 Performing Organization Address City/State/Zipcode Phone Number [facility] MR brain without IV contrast (05/29/2018 2:29 PM CDT) Narrative Performed At FINAL REPORT [facility] MRI brain Comparison: None Reason for exam: Stroke Ischemic Stroke Evaluation Discussion: Multiplanar MR imaging the brain was performed using T1, T2, FLAIR, FFE, diffusion, and ADC map imaging. There are no intracranial hematomas, mass effect, hydrocephalus, shift, or extra-axial collections. There is a patchy right-sided pontine microvascular diffusion restricted recent infarct. Chronic ischemic changes are seen throughout the right cerebral hemisphere mostly following a border zone territory distribution. Flow-voids are seen in the basilar and internal carotid arteries as well as in the large posterior dural sinuses. There is however compromise of the right-sided proximal MCA and the intradural right vertebral artery. Refer to MRA reporting. The pineal, sella, and craniocervical junction regions are unremarkable. The visualized orbital contents, paranasal sinuses, skullbase and surrounding soft tissues are unremarkable.. Impressions: Right-sided pontine patchy diffusion restricted recent infarct. Right cerebral chronic ischemic changes are in keeping with large vessel compromise. Refer to concurrent MRA reporting. Signed: David Morocho MD Report Verified Date/Time:05/28/2018 21:29:19 Procedure Note Interface, External Ris In - 05/29/2018 2:30 PM CDT FINAL REPORT MRI brain Comparison: None Reason for exam: Stroke Ischemic Stroke Evaluation Discussion: Multiplanar MR imaging the brain was performed using T1, T2, FLAIR, FFE, diffusion, and ADC map imaging. There are no intracranial hematomas, mass effect, hydrocephalus, shift, or extra-axial collections. There is a patchy right-sided pontine microvascular diffusion restricted recent infarct. Chronic ischemic changes are seen throughout the right cerebral hemisphere mostly following a border zone territory distribution. Flow-voids are seen in the basilar and internal carotid arteries as well as in the large posterior dural sinuses. There is however compromise of the right-sided proximal MCA and the intradural right vertebral artery. Refer to MRA reporting. The pineal, sella, and craniocervical junction regions are unremarkable. The visualized orbital contents, paranasal sinuses, skullbase and surrounding soft tissues are unremarkable. . Impressions: Right-sided pontine patchy diffusion restricted recent infarct. Right cerebral chronic ischemic changes are in keeping with large vessel compromise. Refer to concurrent MRA reporting. Signed: David Morocho MD Report Verified Date/Time: 05/28/2018 21:29:19 Performing Organization Address City/State/Zipcode Phone Number [facility] MRA neck without IV contrast (05/29/2018 2:29 PM CDT) Narrative Performed At FINAL REPORT [facility] MRA head and neck Comparison: None Reason for exam:Stroke Discussion: 2 D and 3-D [id number] MRA of the head and neck was provided with maximal intensity projection 3-D reconstructions of the cervical and intracranial arterial vasculatures. NASCET criteria are utilized when considering stenosis. Normal flow left cervical carotid system. On the right, there is generally diminished flow signal in the entire right-sided carotid system. I do suspect a carotid bulb stenosis probably 50% by NASCET criteria although there is generally diminished caliber of the extracranial right internal carotid artery. There is maintained flow in the cervical segment vertebral arteries with the dominant left side. The right side is hypoplastic with asymmetrically diminished flow signal. This would reflect and intracranial stenosis as described below. There is maintained flow intracranial internal carotid arteries and in the carotid terminus branches proximally. On the left, there may be a moderate stenosis of the A1 segment origin. On the right, multifocal atherosclerotic moderate stenoses are seen in the lacerum and cavernous segments. There is also a severe stenosis of the right-sided M1 segment with diminished visibility of peripheral right MCA flow and vasculature. There is a distal intradural right vertebral artery occlusion although there is persistent visible flow extending into the right PICA. Left vertebral, basilar, and proximal posterior cerebral arteries are intact. Mid posterior cerebral artery stenoses are present bilaterally. Impressions: 1. Suspected moderate right carotid bulb stenosis with overall diminished right-sided cervical carotid system flow, likely a reflection of intracranial stenoses. 2. 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 3. Multifocal intracranial stenoses involving right intracranial carotid, right M1 segment, and bilateral posterior cerebral arteries. 4. MRA neck source images show T1 hyperintense foci along the right-sided parajugular juan chain, etiology unclear. T1 hyperintense lymph nodes would be unusual. Consider follow-up CT neck with contrast when clinically appropriate. Signed: David Morocho MD Report Verified Date/Time:05/28/2018 21:34:36 Procedure Note Interface, External Ris In - 05/29/2018 2:30 PM CDT FINAL REPORT MRA head and neck Comparison: None Reason for exam: Stroke Discussion: 2 D and 3-D [id number] MRA of the head and neck was provided with maximal intensity projection 3-D reconstructions of the cervical and intracranial arterial vasculatures. NASCET criteria are utilized when considering stenosis. Normal flow left cervical carotid system. On the right, there is generally diminished flow signal in the entire right-sided carotid system. I do suspect a carotid bulb stenosis probably 50% by NASCET criteria although there is generally diminished caliber of the extracranial right internal carotid artery. There is maintained flow in the cervical segment vertebral arteries with the dominant left side. The right side is hypoplastic with asymmetrically diminished flow signal. This would reflect and intracranial stenosis as described below. There is maintained flow intracranial internal carotid arteries and in the carotid terminus branches proximally. On the left, there may be a moderate stenosis of the A1 segment origin. On the right, multifocal atherosclerotic moderate stenoses are seen in the lacerum and cavernous segments. There is also a severe stenosis of the right-sided M1 segment with diminished visibility of peripheral right MCA flow and vasculature. There is a distal intradural right vertebral artery occlusion although there is persistent visible flow extending into the right PICA. Left vertebral, basilar, and proximal posterior cerebral arteries are intact. Mid posterior cerebral artery stenoses are present bilaterally. Impressions: 1. Suspected moderate right carotid bulb stenosis with overall diminished right-sided cervical carotid system flow, likely a reflection of intracranial stenoses. 2. 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 3. Multifocal intracranial stenoses involving right intracranial carotid, right M1 segment, and bilateral posterior cerebral arteries. 4. MRA neck source images show T1 hyperintense foci along the right-sided parajugular juan chain, etiology unclear. T1 hyperintense lymph nodes would be unusual. Consider follow-up CT neck with contrast when clinically appropriate. Signed: David Morocho MD Report Verified Date/Time: 05/28/2018 21:34:36 Performing Organization Address City/State/Zipcode Phone Number [facility] MRA head without IV contrast (05/29/2018 2:29 PM CDT) Narrative Performed At FINAL REPORT [facility] MRA head and neck Comparison: None Reason for exam:Stroke Discussion: 2 D and 3-D [id number] MRA of the head and neck was provided with maximal intensity projection 3-D reconstructions of the cervical and intracranial arterial vasculatures. NASCET criteria are utilized when considering stenosis. Normal flow left cervical carotid system. On the right, there is generally diminished flow signal in the entire right-sided carotid system. I do suspect a carotid bulb stenosis probably 50% by NASCET criteria although there is generally diminished caliber of the extracranial right internal carotid artery. There is maintained flow in the cervical segment vertebral arteries with the dominant left side. The right side is hypoplastic with asymmetrically diminished flow signal. This would reflect and intracranial stenosis as described below. There is maintained flow intracranial internal carotid arteries and in the carotid terminus branches proximally. On the left, there may be a moderate stenosis of the A1 segment origin. On the right, multifocal atherosclerotic moderate stenoses are seen in the lacerum and cavernous segments. There is also a severe stenosis of the right-sided M1 segment with diminished visibility of peripheral right MCA flow and vasculature. There is a distal intradural right vertebral artery occlusion although there is persistent visible flow extending into the right PICA. Left vertebral, basilar, and proximal posterior cerebral arteries are intact. Mid posterior cerebral artery stenoses are present bilaterally. Impressions: 1. Suspected moderate right carotid bulb stenosis with overall diminished right-sided cervical carotid system flow, likely a reflection of intracranial stenoses. 2. 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 3. Multifocal intracranial stenoses involving right intracranial carotid, right M1 segment, and bilateral posterior cerebral arteries. 4. MRA neck source images show T1 hyperintense foci along the right-sided parajugular juan chain, etiology unclear. T1 hyperintense lymph nodes would be unusual. Consider follow-up CT neck with contrast when clinically appropriate. Signed: David Morocho MD Report Verified Date/Time:05/28/2018 21:34:36 Procedure Note Interface, External Ris In - 05/29/2018 2:30 PM CDT FINAL REPORT MRA head and neck Comparison: None Reason for exam: Stroke Discussion: 2 D and 3-D [id number] MRA of the head and neck was provided with maximal intensity projection 3-D reconstructions of the cervical and intracranial arterial vasculatures. NASCET criteria are utilized when considering stenosis. Normal flow left cervical carotid system. On the right, there is generally diminished flow signal in the entire right-sided carotid system. I do suspect a carotid bulb stenosis probably 50% by NASCET criteria although there is generally diminished caliber of the extracranial right internal carotid artery. There is maintained flow in the cervical segment vertebral arteries with the dominant left side. The right side is hypoplastic with asymmetrically diminished flow signal. This would reflect and intracranial stenosis as described below. There is maintained flow intracranial internal carotid arteries and in the carotid terminus branches proximally. On the left, there may be a moderate stenosis of the A1 segment origin. On the right, multifocal atherosclerotic moderate stenoses are seen in the lacerum and cavernous segments. There is also a severe stenosis of the right-sided M1 segment with diminished visibility of peripheral right MCA flow and vasculature. There is a distal intradural right vertebral artery occlusion although there is persistent visible flow extending into the right PICA. Left vertebral, basilar, and proximal posterior cerebral arteries are intact. Mid posterior cerebral artery stenoses are present bilaterally. Impressions: 1. Suspected moderate right carotid bulb stenosis with overall diminished right-sided cervical carotid system flow, likely a reflection of intracranial stenoses. 2. 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 3. Multifocal intracranial stenoses involving right intracranial carotid, right M1 segment, and bilateral posterior cerebral arteries. 4. MRA neck source images show T1 hyperintense foci along the right-sided parajugular juan chain, etiology unclear. T1 hyperintense lymph nodes would be unusual. Consider follow-up CT neck with contrast when clinically appropriate. Signed: David Morocho MD Report Verified Date/Time: 05/28/2018 21:34:36 Performing Organization Address City/State/Zipcode Phone Number [employer] POC-Glucose meter (05/29/2018 1:05 PM CDT)Only the most recent of8 resultswithin the time period is included. POC-Glucose Meter 197 (H)Comment: TESTED AT 70 - 110 mg/dL [facility] [address] [facility] [address] Specimen Blood Performing Organization Address City/State/Zipcode Phone Number [address] [address] CENTER CBC with platelet count + automated diff (05/29/2018 6:25 AM CDT)Only the most recent of2 resultswithin the time period is included. WBC 7.9 3.5 - 10.5 K/L [facility] RBC 5.15 4.63 - 6.08 M/L [facility] Hemoglobin 15.2 13.7 - 17.5 GM/DL [facility] Hematocrit 44.2 40.1 - 51.0 % [facility] MCV 85.8 79.0 - 92.2 fL [facility] MCH 29.5 25.7 - 32.2 pg [facility] MCHC 34.4 32.3 - 36.5 GM/DL [facility] RDW 13.1 11.6 - 14.4 % [facility] Platelets 142 (L) 150 - 450 K/CU MM [facility] MPV 10.7 9.4 - 12.4 fL [facility] nRBC 0 0 - 0 /100 WBC [facility] % Neutros 66 % [facility] % Lymphs 23 % [facility] % Monos 8 % [facility] % Eos 2 % [facility] % Baso 0 % [facility] # Neutros 5.20 1.78 - 5.38 K/L [facility] # Lymphs 1.82 1.32 - 3.57 K/L [facility] # Monos 0.66 0.30 - 0.82 K/L [facility] # Eos 0.15 0.04 - 0.54 K/L [facility] # Baso 0.03 0.01 - 0.08 K/L [facility] Immature Granulocytes-Relative 1 0 - 1 % [facility] Specimen Blood - Arm, Left Performing Organization Address [facility] Phone Number [address] [phone] CENTER aPTT (05/29/2018 6:25 AM CDT)Only the most recent of2 resultswithin the time period is included. PTT 31.9 22.5 - 36.0 seconds [facility] Specimen Blood - Arm, Left Performing Organization Address [facility] Phone Number [address] [address] [phone] [place] Prothrombin time/INR (05/29/2018 6:25 AM CDT)Only the most recent of2 resultswithin the time period is included. Protime 13.5 11.7 - 14.7 seconds [facility] INR 1.0 <=5.9 [facility] Specimen Blood - Arm, Left Narrative Performed At [facility] RECOMMENDED COUMADIN/WARFARIN INR THERAPY RANGES STANDARD DOSE: 2.0 - 3.0 Includes: PROPHYLAXIS for venous thrombosis, systemic embolization; TREATMENT for venous thrombosis and/or pulmonary embolus. HIGH RISK: Target INR is 2.5-3.5 for patients with mechanical heart valves. Performing Organization Address City/[facility] Phone Number [address] [address] CENTER Basic metabolic panel (05/29/2018 6:25 AM CDT)Only the most recent of2 resultswithin the time period is included. Sodium 135 (L) 136 - 145 meq/L [facility] Potassium 3.7 3.5 - 5.1 meq/L [facility] Chloride 103 98 - 107 meq/L [facility] CO2 23 22 - 29 meq/L [facility] BUN 17 7 - 21 mg/dL [facility] Creatinine 0.88 0.57 - 1.25 mg/dL [facility] Glucose 367 (H) 70 - 105 mg/dL [facility] Calcium 9.2 8.4 - 10.2 mg/dL [facility] EGFR 89Comment: ESTIMATED GFR IS mL/min/1.73 sq m [facility] NOT ACCURATE CREATININE [facility] CLEARANCE IN PREDICTING GLOMERULAR FILTRATION RATE. ESTIMATED GFR IS NOT APPLICABLE FOR DIALYSIS PATIENTS. Specimen Blood - Arm, Left Performing Organization Address [facility]/Zipcode Phone Number [address] [address] CENTER Vitamin B12 and Folate (05/28/2018 12:04 PM CDT) Vitamin B12 456 213 - 816 pg/mL [facility] Folate 13.4 >=7.0 ng/mL [facility] Specimen Blood - Arm, Right Performing Organization Address [facility] Cent[facility]ode Phone Number [address] [address] CENTER TSH/Free T4 If Indicated (05/28/2018 12:04 PM CDT) TSH 1.11 0.35 - 4.94 uIU/mL [facility] Specimen Blood - Arm, Right Performing Organization Address [facility] Cent[facility]ode Phone Number [address] [address] [phone] CENTER HIV-1 Antigen with HIV-1/2 Antibody (05/28/2018 12:04 PM CDT) HIV-1 Antigen with HIV 1&2 NON-REACTIVE Nonreactive [facility] Antibody [facility] Specimen Blood - Arm, Right Performing Organization Address [facility]/Zipcode Phone Number [address] [address] [phone] [place] C-Reactive Protein (05/28/2018 12:04 PM CDT) CRP 1.14 (H) 0.00 - 0.50 mg/dL [facility] Specimen Blood - Arm, Right Performing Organization Address City/State/[place] [address] CENTER RPR (05/28/2018 12:04 PM CDT) RPR Nonreactive Nonreactive [facility] Specimen Blood - Arm, Right Performing Organization Address City/State/[place] [address] [place] Hemoglobin A1c (05/28/2018 12:04 PM CDT)Only the most recent of2 resultswithin the time period is included. Hemoglobin A1C 9.2 (H) 4.3 - 6.1 % [facility] Specimen Blood - Arm, Right Performing Organization Address [facility] [place] [address] [phone] [place] Lipid panel (05/28/2018 12:04 PM CDT)Only the most recent of2 resultswithin the time period is included. Triglycerides 527Comment: Specimen slightly mg/dL [facility] Cholesterol 237Comment: Specimen slightly mg/dL [facility] HDL 34 mg/dL [facility] Specimen Blood - Arm, Right Narrative Performed At Calculated LDL not valid if triglyceride >400 [facility] mg/dL Triglyceride Reference Range: Low Risk <150 [id number] High Risk 200-499 Very High Risk>=500 Cholesterol Reference Range: Low Risk <200 [id number] High Risk>240 HDL Cholesterol Reference Range: Low Risk >=60 High Risk <40 LDL Cholesterol Reference Range: Optimal<100 Near [id number] Very High >=190 Performing Organization Address [facility]/Zipcode Phone Number [facility] [address] [place] [address] [place] Hepatic function panel (05/28/2018 3:58 AM CDT) Protein, Total 7.0 6.0 - 8.3 gm/dL [facility] Albumin 3.9 3.5 - 5.0 g/dL [facility] Total Bilirubin 0.6 0.2 - 1.2 mg/dL [facility] Bilirubin, Direct 0.1 0.1 - 0.5 mg/dL [facility] Alkaline Phosphatase 110 40 - 150 U/L [facility] AST 12 5 - 34 U/L [facility] ALT 12 6 - 55 U/L [facility] Specimen Blood Narrative Performed At [facility] Specimen slightly lipemic Performing Organization Address [facility] Centercode Phone Number [facility] [address] [place] [address] [place] Carotid doppler bilateral (05/28/2018 12:10 AM CDT) Ejection Fraction [facility] Impressions Performed At Right Impression [facility] 1. There is <50% diameter reduction (approximately 28% by 2-D measurement) in the internal carotid artery with a peak velocity of 64.4/20.0 cm/sec and heterogeneous plaque. 2. There is non-occluding plaque in the external carotid artery. 3. There is non-occluding plaque in the common carotid artery. 4. The vertebral artery flow is antegrade and normal. 5. The subclavian artery is within normal limits where visualized. Left Impression 1. There is <50% diameter reduction (approximately 42% by 2-D measurement) in the internal carotid artery with a peak velocity of 125/32.2 cm/sec and heterogeneous plaque. 2. There is non-occluding plaque in the external carotid artery. 3. There is non-occluding plaque in the common carotid artery. 4. The vertebral artery flow is antegrade and normal. 5. The subclavian artery is within normal limits where visualized. Conclusions Summary Carotid duplex scanning and color flow imaging were performed bilaterally. The arteries were adequately visualized. The bilateral internal carotid arteries had <50% hemodynamically insignificant stenosis (approximately 28% by 2-D measurement on the right, approximately 42% by 2-D measurement on the left) with heterogeneous plaque. The vertebral artery flow was antegrade and normal bilaterally. The subclavian arteries were patent with normal flow bilaterally where visualized. Signature Velocities are measured in cm/s ; Diameters are measured in cm Carotid Right Measurements + +----+----+-----+ +---- + + !Location !PSV !EDV !Angle!%Stenosis 2D!%Stenosis Doppler!Tortuosity ! + +----+----+-----+ +---- + + !Prox CCA !66.4!10.2!60 !! ! ! + +----+----+-----+ +---- + + !Dist CCA !119 !20.4!60 !! ! ! + +----+----+-----+ +---- + + !Prox ICA !64.4!20!60 !28% !<50% ! ! + +----+----+-----+ +---- + + !Dist ICA !83.8!29.3!60 !! ! ! + +----+----+-----+ +---- + + !Prox ECA !200 !26.2!60 !! ! ! + +----+----+-----+ +---- + + !Vertebral!39!5.48!60 !! ! ! + +----+----+-----+ +---- + + !Prox Subclavian!99.1!!60 !! ! ! + +----+----+-----+ +---- + + - There is antegrade vertebral flow noted on the right side. - Additional Measurements:ICAPSV/CCAPSV 0.7.ICAEDV/CCAEDV 2.87. Carotid Left Measurements + +----+----+-----+ +---- + + !Location !PSV !EDV !Angle!%Stenosis 2D!%Stenosis Doppler!Tortuosity ! + +----+----+-----+ +---- + + !Prox CCA !108 !29.1!60 !! ! ! + +----+----+-----+ +---- + + !Dist CCA !162 !33!60 !! ! ! + +----+----+-----+ +---- + + !Prox ICA !125 !32.2!60 !42% !<50% ! ! + +----+----+-----+ +---- + + !Dist ICA !133 !55.8!60 !! ! ! + +----+----+-----+ +---- + + !Prox ECA !189 !24.9!60 !! ! ! + +----+----+-----+ +---- + + !Vertebral!68.8!18.5!60 !! ! ! + +----+----+-----+ +---- + + !Prox Subclavian!128 !!60 !! ! ! + +----+----+-----+ +---- + + - There is antegrade vertebral flow noted on the left side. - Additional Measurements:ICAPSV/CCAPSV 0.82.ICAEDV/CCAEDV 1.92. Narrative Performed At [facility] - Carotid Duplex Study [facility] Demographics Patient Name NATAN JOHNSON Date of Study05/27/2018 [id number] Age58 Visit Number [id number] Male Accession Number [id number] of Birth1960 [facility] Room [id number] PhysicianPatel Rehana Montiel MD, [facility] PhysicianRPVI Procedure Type of Study: Cerebral: Carotid, CAROTID DOPPLER, BILATERAL. Indications for Study:CVA. Patient Status:Routine. Study Location:Portable. Technical Quality:Adequate visualization. Risk Factors History of Disease + +----+---- + !Diagnosis !Date!Comments ! + +----+---- + !History/Risk Factors:! !Stroke, HTN, DM! + +----+---- + Procedure Note Interface, External Ris In - 05/28/2018 4:52 AM CDT [facility] - Carotid Duplex Study Demographics Patient Name NATAN JOHNSON Date of Study 05/27/2018 Age 58 Visit Number [id number] Gender Male Accession Number [id number] Date of 1960 Referring [facility] Room Number 911 Physician [employer] Manageraruna Montiel MD, [facility] Physician RPVI Procedure Type of Study: Cerebral: Carotid, CAROTID DOPPLER, BILATERAL. Indications for Study:CVA. Patient Status:Routine. Study Location:Portable. Technical Quality:Adequate visualization. Risk Factors History of Disease + +----+ + !Diagnosis !Date!Comments ! + +----+ + !History/Risk Factors: ! !Stroke, HTN, DM ! + +----+ + Impressions Right Impression 1. There is <50% diameter reduction (approximately 28% by 2-D measurement) in the internal carotid artery with a peak velocity of 64.4/20.0 cm/sec and heterogeneous plaque. 2. There is non-occluding plaque in the external carotid artery. 3. There is non-occluding plaque in the common carotid artery. 4. The vertebral artery flow is antegrade and normal. 5. The subclavian artery is within normal limits where visualized. Left Impression 1. There is <50% diameter reduction (approximately 42% by 2-D measurement) in the internal carotid artery with a peak velocity of 125/32.2 cm/sec and heterogeneous plaque. 2. There is non-occluding plaque in the external carotid artery. 3. There is non-occluding plaque in the common carotid artery. 4. The vertebral artery flow is antegrade and normal. 5. The subclavian artery is within normal limits where visualized. Conclusions Summary Carotid duplex scanning and color flow imaging were performed bilaterally. The arteries were adequately visualized. The bilateral internal carotid arteries had <50% hemodynamically insignificant stenosis (approximately 28% by 2-D measurement on the right, approximately 42% by 2-D measurement on the left) with heterogeneous plaque. The vertebral artery flow was antegrade and normal bilaterally. The subclavian arteries were patent with normal flow bilaterally where visualized. Signature Velocities are measured in cm/s ; Diameters are measured in cm Carotid Right Measurements + +----+----+-----+ + + + !Location !PSV !EDV !Angle!%Stenosis 2D!%Stenosis Doppler!Tortuosity ! + +----+----+-----+ + + + !Prox CCA !66.4!10.2!60 ! ! ! ! + +----+----+-----+ + + + !Dist CCA !119 !20.4!60 ! ! ! ! + +----+----+-----+ + + + !Prox ICA !64.4!20 !60 !28% !<50% ! ! + +----+----+-----+ + + + !Dist ICA !83.8!29.3!60 ! ! ! ! + +----+----+-----+ + + + !Prox ECA !200 !26.2!60 ! ! ! ! + +----+----+-----+ + + + !Vertebral !39 !5.48!60 ! ! ! ! + +----+----+-----+ + + + !Prox Subclavian!99.1! !60 ! ! ! ! + +----+----+-----+ + + + - There is antegrade vertebral flow noted on the right side. - Additional Measurements:ICAPSV/CCAPSV 0.7.ICAEDV/CCAEDV 2.87. Carotid Left Measurements + +----+----+-----+ + + + !Location !PSV !EDV !Angle!%Stenosis 2D!%Stenosis Doppler!Tortuosity ! + +----+----+-----+ + + + !Prox CCA !108 !29.1!60 ! ! ! ! + +----+----+-----+ + + + !Dist CCA !162 !33 !60 ! ! ! ! + +----+----+-----+ + + + !Prox ICA !125 !32.2!60 !42% !<50% ! ! + +----+----+-----+ + + + !Dist ICA !133 !55.8!60 ! ! ! ! + +----+----+-----+ + + + !Prox ECA !189 !24.9!60 ! ! ! ! + +----+----+-----+ + + + !Vertebral !68.8!18.5!60 ! ! ! ! + +----+----+-----+ + + + !Prox Subclavian!128 ! !60 ! ! ! ! + +----+----+-----+ + + + - There is antegrade vertebral flow noted on the left side. - Additional Measurements:ICAPSV/CCAPSV 0.82.ICAEDV/CCAEDV 1.92. Performing Organization Address City/State/Zipcode Phone Number [facility] after 12/05/2017 Advance Directives For more information, please contact:[address] [phone] Code Status Date Activated Date Inactivated Comments Full Code 05/27/2018 10:51 PM 05/30/2018 12:20 AM This code status was determined by: Patient
--- NOTE | 2018-12-06 14:29 | ER ---
Nurse's Notes [facility] Name: Natan Johnson Age: 58 yrs Sex: Male : 1960 Arrival Date: 12/06/2018 Time: 14:01 Bed 26 Private MD: Diagnosis: Acute pharyngitis;Type 2 diabetes mellitus;Headache Presentation: 12/06 14:04 Presenting complaint: Patient states: cough, headache, sore throat, congestion that aa5 began 4 days ago. Transition of care: patient was not received from another setting of care. Onset of symptoms was November 2018. Risk Assessment: Do you want to hurt yourself or someone else? Patient reports no desire to harm self or others. Initial Sepsis Screen: Does the patient meet any 2 criteria? No. Patient's initial sepsis screen is negative. Does the patient have a suspected source of infection? No. Patient's initial sepsis screen is negative. Care prior to arrival: None. 14:04 Method Of Arrival: Ambulatory aa5 14:04 Acuity: JEB 3 aa5 Historical: - Allergies: 14:05 No Known Allergies; aa5 - PMHx: 14:05 Diabetes - NIDDM; Hypertension; CVA; aa5 - PSHx: 14:05 None; aa5 - Immunization history:: Flu vaccine is up to date. - Social history:: Smoking status: Patient uses tobacco products, smokes one pack cigarettes per day. - Ebola Screening: : No symptoms or risks identified at this time. - Family history:: not pertinent. Screenin:10 Abuse screen: Denies threats or abuse. Denies injuries from another. Nutritional ca1 screening: No deficits noted. Tuberculosis screening: No symptoms or risk factors identified. Fall Risk None identified. Assessment: 14:10 General: Appears in no apparent distress. comfortable, Behavior is calm, cooperative, ca1 appropriate for age. Pain: Complains of pain in throat Pain currently is 4 out of 10 on a pain scale. Neuro: Level of Consciousness is awake, alert, obeys commands, Oriented to person, place, time, situation. Cardiovascular: Heart tones S1 S2 present Capillary refill < 3 seconds Patient's skin is warm and dry. Respiratory: Airway is patent Respiratory effort is even, unlabored, Respiratory pattern is regular, symmetrical, Breath sounds are clear bilaterally. GI: No deficits noted. No signs and/or symptoms were reported involving the gastrointestinal system. : No deficits noted. No signs and/or symptoms were reported regarding the genitourinary system. EENT: Throat is pink. Derm: Skin is intact, is healthy with good turgor, Skin is pink, warm \T\ dry. Musculoskeletal: Circulation, motion, and sensation intact. Capillary refill < 3 seconds. 15:00 Reassessment: Patient appears in no apparent distress at this time. Patient is alert, ca1 oriented x 3, equal unlabored respirations, skin warm/dry/pink. Vital Signs: 14:05 BP 156 / 87; Pulse 89; Resp 16 S; Temp 98.2(TE); Pulse Ox 98% on R/A; Weight 85.28 kg aa5 (R); Height 5 ft. 7 in. (170.18 cm) (R); Pain 7/10; 15:00 BP 148 / 88; Pulse 91; Resp 17 S; Pulse Ox 100% on R/A; ca1 14:05 Body Mass Index 29.44 (85.28 kg, 170.18 cm) aa5 ED Course: 14:01 Patient arrived in ED. as 14:04 Triage completed. aa5 14:04 Arm band placed on. aa5 14:10 Patient has correct armband on for positive identification. Bed in low position. Call ca1 light in reach. Side rails up X 1. Pulse ox on. NIBP on. Warm blanket given. 14:10 No provider procedures requiring assistance completed. Patient did not have IV access ca1 during this emergency room visit. 14:15 Saray Cardenas, FARIDEH is Primary Nurse. ca1 14:20 Lisandro Bentley MD is Attending Physician. kaiden Administered Medications: 14:44 Drug: Augmentin 875 mg Route: PO; ca1 14:50 Follow up: Response: No adverse reaction ca1 14:44 Drug: Decadron 10 mg Route: IM; Site: right deltoid; ca1 14:55 Follow up: Response: No adverse reaction; Pain is decreased ca1 Point of Care Testing: Blood Glucose: 14:39 Blood Glucose: 213 mg/dL; jp3 Ranges: Outcome: 14:28 Discharge ordered by . kaiden 15:06 Discharged to home ambulatory, with family. ca1 15:06 Condition: stable 15:06 Discharge instructions given to patient, Instructed on discharge instructions, follow up and referral plans. medication usage, Demonstrated understanding of instructions, follow-up care, medications, Prescriptions given X 1. 15:07 Patient left the ED. ca1 Signatures: Lisandro Bentley MD MD cha Martinez, Amelia as Calderon, Audri, RN RN aa5 Jeffrey Farris jp3 Saray Cardenas RN RN ca1
--- NOTE | 2018-12-06 14:29 | EDPHYS ---
Physician Documentation [facility] Name: Natan Johnson Age: 58 yrs Sex: Male : 1960 Arrival Date: 12/06/2018 Time: 14:01 Bed 26 Private MD: ED Physician Lisandro Bentley HPI: 12/06 14:24 This 58 yrs old Male presents to ER via Ambulatory with complaints of Sore kaiden Throat, Headache. 14:24 The patient presents with sore throat. The patient describes throat pain as burning, kaiden constant. Onset: The symptoms/episode began/occurred 2 day(s) ago. Severity of symptoms: At their worst the symptoms were mild, in the emergency department the symptoms are unchanged. Modifying factors: The symptoms are alleviated by nothing, the symptoms are aggravated by swallowing. Associated signs and symptoms: Pertinent positives: flu-like symptoms, headache. The patient has experienced similar episodes in the past, a few times. Historical: - Allergies: 14:05 No Known Allergies; aa5 - PMHx: 14:05 Diabetes - NIDDM; Hypertension; CVA; aa5 - PSHx: 14:05 None; aa5 - Immunization history:: Flu vaccine is up to date. - Social history:: Smoking status: Patient uses tobacco products, smokes one pack cigarettes per day. - Ebola Screening: : No symptoms or risks identified at this time. - Family history:: not pertinent. ROS: 14:24 Constitutional: Negative for fever, chills, and weight loss, Eyes: Negative for injury, kaiden pain, redness, and discharge, Neck: Negative for injury, pain, and swelling, Cardiovascular: Negative for chest pain, palpitations, and edema, Respiratory: Negative for shortness of breath, cough, wheezing, and pleuritic chest pain, Abdomen/GI: Negative for abdominal pain, nausea, vomiting, diarrhea, and constipation, Back: Negative for injury and pain, : Negative for injury, bleeding, discharge, and swelling, MS/Extremity: Negative for injury and deformity, Skin: Negative for injury, rash, and discoloration, Neuro: Negative for headache, weakness, numbness, tingling, and seizure, Psych: Negative for depression, anxiety, suicide ideation, homicidal ideation, and hallucinations, Allergy/Immunology: Negative for hives, rash, and allergies, Endocrine: Negative for neck swelling, polydipsia, polyuria, polyphagia, and marked weight changes, Hematologic/Lymphatic: Negative for swollen nodes, abnormal bleeding, and unusual bruising. 14:24 ENT: Positive for sore throat. Exam: 14:24 Constitutional: This is a well developed, well nourished patient who is awake, alert, kaiden and in no acute distress. Head/Face: Normocephalic, atraumatic. Eyes: Pupils equal round and reactive to light, extra-ocular motions intact. Lids and lashes normal. Conjunctiva and sclera are non-icteric and not injected. Cornea within normal limits. Periorbital areas with no swelling, redness, or edema. Neck: Trachea midline, no thyromegaly or masses palpated, and no cervical lymphadenopathy. Supple, full range of motion without nuchal rigidity, or vertebral point tenderness. No Meningismus. Chest/axilla: Normal chest wall appearance and motion. Nontender with no deformity. No lesions are appreciated. Cardiovascular: Regular rate and rhythm with a normal S1 and S2. No gallops, murmurs, or rubs. Normal PMI, no JVD. No pulse deficits. Respiratory: Lungs have equal breath sounds bilaterally, clear to auscultation and percussion. No rales, rhonchi or wheezes noted. No increased work of breathing, no retractions or nasal flaring. Abdomen/GI: Soft, non-tender, with normal bowel sounds. No distension or tympany. No guarding or rebound. No evidence of tenderness throughout. Back: No spinal tenderness. No costovertebral tenderness. Full range of motion. Skin: Warm, dry with normal turgor. Normal color with no rashes, no lesions, and no evidence of cellulitis. MS/ Extremity: Pulses equal, no cyanosis. Neurovascular intact. Full, normal range of motion. Neuro: Awake and alert, GCS 15, oriented to person, place, time, and situation. Cranial nerves II-XII grossly intact. Motor strength 5/5 in all extremities. Sensory grossly intact. Cerebellar exam normal. Normal gait. Psych: Awake, alert, with orientation to person, place and time. Behavior, mood, and affect are within normal limits. 14:24 ENT: Posterior pharynx: Tonsils: are normal in appearance, Uvula: normal, midline, swelling, that is mild, erythema, that is mild, exudate, is not appreciated, peritonsillar mass, is not appreciated. 14:29 Neck: ROM/movement: is normal, no acute changes, Meningeal signs: are not present, kaiden Kernig's sign is negative, Brudzinski's sign is negative. 14:29 Musculoskeletal/extremity: DVT Exam: No signs of deep vein thrombosis. no pain, no swelling, no tenderness, negative Homans' sign noted on exam, no appreciated bluish discoloration, no erythema, no increased warmth. Vital Signs: 14:05 BP 156 / 87; Pulse 89; Resp 16 S; Temp 98.2(TE); Pulse Ox 98% on R/A; Weight 85.28 kg aa5 (R); Height 5 ft. 7 in. (170.18 cm) (R); Pain 7/10; 15:00 BP 148 / 88; Pulse 91; Resp 17 S; Pulse Ox 100% on R/A; ca1 14:05 Body Mass Index 29.44 (85.28 kg, 170.18 cm) aa5 MDM: 14:20 Patient medically screened. [facility] 14:24 Data reviewed: vital signs, nurses notes, lab test result(s), EKG, radiologic studies. [facility] 12/06 14:23 Order name: Blood Glucose Level; Complete Time: 14:39 [facility] 12/06 14:41 Order name: Glucose, Ancillary Testing EDMS Administered Medications: 14:44 Drug: Augmentin 875 mg Route: PO; ca1 14:50 Follow up: Response: No adverse reaction ca1 14:44 Drug: Decadron 10 mg Route: IM; Site: right deltoid; ca1 14:55 Follow up: Response: No adverse reaction; Pain is decreased ca1 Point of Care Testing: Blood Glucose: 14:39 Blood Glucose: 213 mg/dL; jp3 Ranges: Critical Glucose Levels:Adult <50 mg/dl or >400 mg/dl <40 mg/dl or >180 mg/dl Disposition: 12/06/18 14:28 Discharged to Home. Impression: Acute pharyngitis, Type 2 diabetes mellitus, Headache. - Condition is Stable. - Discharge Instructions: Type 2 Diabetes Mellitus, Diagnosis, Adult, Pharyngitis, Pharyngitis, [id number], Sore Throat, [id number], Type 2 Diabetes Mellitus, Diagnosis, Adult, [id number]. - Prescriptions for Augmentin 875- 125 mg Oral Tablet - take 1 tablet by ORAL route every 12 hours for 10 days; 20 tablet. - Medication Reconciliation Form, Thank You Letter, Antibiotic Education, Prescription Opioid Use form. - Follow up: Private Physician; When: 2 - 3 days; Reason: Recheck today's complaints, Continuance of care, Re-evaluation by your physician. - Problem is new. - Symptoms have improved. Signatures: Dispatcher [employer] EDCA Lisandro Bentley MD MD cha Calderon, Audri, RN RN aa5 Saray Cardenas RN RN ca1 Corrections: (The following items were deleted from the chart) 14:25 14:15 Influenza Screen (A \T\ B)+BA.LAB.BRZ ordered. [facility] 14:25 14:15 Group A Streptococcus Rapid Sc+BA.LAB.BRZ ordered. [facility] 15:07 14:28 12/06/2018 14:28 Discharged to Home. Impression: Acute pharyngitis; Type 2 ca1 diabetes mellitus; Headache. Condition is Stable. Forms are Medication Reconciliation Form, Thank You Letter, Antibiotic Education, Prescription Opioid Use. Follow up: Private Physician; When: 2 - 3 days; Reason: Recheck today's complaints, Continuance of care, Re-evaluation by your physician. Problem is new. Symptoms have improved. kaiden
[2018-12-06] MEDS ORDERED: AMOX/K CLAV 875 MG TAB ONE (14:53)
[2018-12-06] MEDS ORDERED: DEXAMETHASONE 10 MG/ML VIAL ONE (14:53)
[2018-12-06 15:18] VITALS: TEMP 98.2
[2018-12-06 15:19] VITALS: BP 148/88; O2SAT 100
== END 2018-12-06 15:07 | disposition home or self-care (01) ==
LOC: ER 13:59
DX: J02.9 Acute pharyngitis, unspecified (principal); E11.9 Type 2 diabetes mellitus without complications; I10 Essential (primary) hypertension; F17.210 Nicotine dependence, cigarettes, uncomplicated
CPT/HCPCS: 82962; 96372; 99283; J1100

== ENCOUNTER 2019-07-16 11:00 | Emergency (ER) | payer OTHER ==
[2019-07-16 12:02] LABS: Absolute Lymphocytes (CBC) 1.9 K/uL (0.7-4.9); Basophils % 0.5 % (0-1.3); Hematocrit 46.3 % (39.6-49.0); Lymphocytes % 19.3 % (15.3-44.8); MPV 9.3 fL (7.6-11.3); RBC Red Blood Cell Count 5.28 M/uL (4.33-5.43)
[2019-07-16 12:09] LABS: ALT/SGPT 41 U/L (12-78); AST/SGOT 20 U/L (15-37); Albumin 3.8 g/dL (3.4-5.0); Alkaline Phosphatase 139 U/L (45-117); BUN Blood Urea Nitrogen 18 mg/dL (7-18); Bicarbonate 27 mmol/L (21-32); Bilirubin Direct 0.1 mg/dL (0-0.2); Bilirubin Total 0.5 mg/dL (0.2-1.0); Glucose Level 171 mg/dL (74-106); Lipase 194 U/L (73-393); Potassium 3.8 mmol/L (3.5-5.1); Protein, Total 7.6 g/dL (6.4-8.2); Sodium Level 138 mmol/L (136-145)
--- NOTE | 2019-07-16 12:48 | RAD REPORT ---
EXAM DESCRIPTION: US - Abdomen Exam Limited - 07/16/2019 12:32 pm CLINICAL HISTORY: Abdominal pain. COMPARISON: None. FINDINGS: The gallbladder wall is not thickened. A gallstone is not seen. The biliary tree is normal caliber. Liver has increased echotexture which may indicate fatty infiltration . A 4 centimeter right renal cyst is present IMPRESSION: Unremarkable gallbladder ultrasound.
--- NOTE | 2019-07-16 13:46 | RAD REPORT ---
EXAM DESCRIPTION: CT - Abdomen Pelvis W Contrast - 07/16/2019 1:21 pm CLINICAL HISTORY: Abdominal pain COMPARISON: none. TECHNIQUE: Computed axial tomography of the abdomen pelvis was obtained. 100 cc Isovue-300 was admin istered intravenously. Oral contrast was not requested which limits evaluation of bowel. All CT scans are performed using dose optimization technique as appropriate and may include automated exposure control or mA/KV adjustment according to patient size. FINDINGS: Fatty liver Spleen, pancreas, adrenal and left kidney appear unremarkable. A 3.8 centimeter rib cystic mass right kidney. Portion of the wall is mildly thickened There is no evidence of diverticulitis. Normal appendix Small umbilical hernia Mild enlargement of the prostate gland IMPRESSION: 3.8 centimeter cystic mass right kidney with a small portion of the wall mildly thickene d most likely benign. It is recommended that patient have followup ultrasound in 1 year for re-evalua tion.
--- NOTE | 2019-07-16 13:53 | ER ---
Nurse's Notes [facility] Name: Natan Johnson Age: 59 yrs Sex: Male : 1960 Arrival Date: 07/16/2019 Time: 11:02 Bed 20 Private MD: Diagnosis: Abdominal and pelvic pain Presentation: 07/16 11:04 Presenting complaint: Patient states: epigastric burning pain started a week ago and sv then started radiating around to the back. Reports vomiting, denies diarrhea. Transition of care: patient was not received from another setting of care. Onset of symptoms was July 09, 2019. Risk Assessment: Do you want to hurt yourself or someone else? Patient reports no desire to harm self or others. Care prior to arrival: None. 11:04 Method Of Arrival: Ambulatory sv 11:04 Acuity: JEB 3 sv 11:35 Initial Sepsis Screen: Does the patient meet any 2 criteria? No. Patient's initial em sepsis screen is negative. Does the patient have a suspected source of infection? No. Patient's initial sepsis screen is negative. Historical: - Allergies: 11:05 No Known Allergies; sv - PMHx: 11:05 CVA; Diabetes - NIDDM; Hypertension; sv - PSHx: 11:05 None; sv - Immunization history:: Adult Immunizations up to date. - Social history:: Smoking status: Patient/guardian denies using tobacco. - Ebola Screening: : Patient negative for fever greater than or equal to 101.5 degrees Fahrenheit, and additional compatible Ebola Virus Disease symptoms Patient denies exposure to infectious person Patient denies travel to an Ebola-affected area in the 21 days before illness onset No symptoms or risks identified at this time. Screenin:35 Abuse screen: Denies threats or abuse. Nutritional screening: No deficits noted. em Tuberculosis screening: No symptoms or risk factors identified. Fall Risk None identified. Assessment: 11:35 Pain: Complains of pain in right upper quadrant and left upper quadrant Pain currently em is 6 out of 10 on a pain scale. Pain began 1 week ago. Neuro: Level of Consciousness is awake, alert, obeys commands, Oriented to person, place, time, situation, Appropriate for age. Cardiovascular: Capillary refill < 3 seconds Patient's skin is warm and dry. Respiratory: Airway is patent Respiratory effort is even, unlabored, Respiratory pattern is regular, symmetrical. GI: Abdomen is flat, Bowel sounds present X 4 quads. Abd is soft X 4 quads Abdomen is tender to palpation in right upper quadrant and left upper quadrant Reports nausea, vomiting, Patient currently denies diarrhea. Derm: Skin is intact, is healthy with good turgor, Skin is pink, warm \T\ dry. Musculoskeletal: Capillary refill < 3 seconds, Range of motion: intact in all extremities. 11:40 General: The previous assessment is accurate, call light remains within reach. ss 12:20 Reassessment: Patient appears in no apparent distress at this time. Patient and/or em family updated on plan of care and expected duration. Pain level reassessed. Patient is alert, oriented x 3, equal unlabored respirations, skin warm/dry/pink. 13:00 Reassessment: Patient appears in no apparent distress at this time. Patient and/or em family updated on plan of care and expected duration. Pain level reassessed. Patient is alert, oriented x 3, equal unlabored respirations, skin warm/dry/pink. 14:12 Reassessment: Patient appears in no apparent distress at this time. Patient and/or em family updated on plan of care and expected duration. Pain level reassessed. Patient is alert, oriented x 3, equal unlabored respirations, skin warm/dry/pink. Vital Signs: 11:05 BP 178 / 84; Pulse 77; Resp 18; Temp 98.2(O); Pulse Ox 97% ; Weight 91.17 kg; Height 5 sv ft. 7 in. (170.18 cm); Pain 6/10; 12:15 BP 150 / 82; Pulse 72; Resp 18; Pulse Ox 99% on R/A; Pain 6/10; em 13:47 BP 147 / 82; Pulse 71; Resp 17; Temp 98.5(O); Pulse Ox 96% on R/A; mh5 11:05 Body Mass Index 31.48 (91.17 kg, 170.18 cm) sv ED Course: 11:02 Patient arrived in ED. mr 11:05 Triage completed. sv 11:06 Arm band placed on. sv 11:14 Dillon Shepard LVN is Primary Nurse. em 11:20 Jennifer Field FNP is PHCP. nh 11:20 Flo Leiva MD is Attending Physician. nh 11:35 Initial lab(s) drawn, by oh, sent to lab. Inserted saline lock: 20 gauge in right em antecubital area, using aseptic technique. Blood collected. 11:44 Urine collected: clean catch specimen, clear. [facility] 11:45 Patient has correct armband on for positive identification. Bed in low position. Call [facility] light in reach. Side rails up X 1. Pulse ox on. NIBP on. 12:32 US Abdomen Limited In Process Unspecified. EDMS 13:21 CT Abd/Pelvis - IV Contrast Only In Process Unspecified. EDMS 14:18 No provider procedures requiring assistance completed. IV discontinued, intact, em bleeding controlled, No redness/swelling at site. Pressure dressing applied. Administered Medications: No medications were administered Outcome: 13:52 Discharge ordered by . ut 14:18 Discharged to home ambulatory. em 14:18 Condition: good 14:18 Discharge instructions given to patient, Instructed on discharge instructions, follow up and referral plans. medication usage, Demonstrated understanding of instructions, follow-up care, medications, Prescriptions given X 1. 14:18 Patient left the ED. em Signatures: Dispatcher [employer] EDaMndi Anders, RN RN Jennifer Triplett, SCROLL MACHINE OPERATOR SCROLL MACHINE OPERATOR ut [place]Dianelys fernandez mr Dillon Shepard, TREATING ENGINEER HELPER TREATING ENGINEER HELPER em Christa Red, Alesia Matos RN [facility]
--- NOTE | 2019-07-16 13:53 | EDPHYS ---
Physician Documentation [facility] Name: Natan Johnson Age: 59 yrs Sex: Male : 1960 Arrival Date: 07/16/2019 Time: 11:02 Bed 20 Private MD: ED Physician Flo Leiva HPI: 07/16 11:37 This 59 yrs old Male presents to ER via Ambulatory with complaints of nh Abdominal Pain. 11:37 The patient presents with abdominal pain in the upper abdomen. Onset: The nh symptoms/episode began/occurred 1 week(s) ago, and became persistent. The symptoms radiate to right back. Associated signs and symptoms: Pertinent positives: nausea and vomiting. The symptoms are described as dull. Modifying factors: The symptoms are alleviated by nothing, the symptoms are aggravated by food. Severity of pain: At its worst the pain was moderate. The patient has not experienced similar symptoms in the past. The patient has been recently seen by a physician: the patient's primary care provider, earlier today. Historical: - Allergies: 11:05 No Known Allergies; sv - PMHx: 11:05 CVA; Diabetes - NIDDM; Hypertension; sv - PSHx: 11:05 None; sv - Immunization history:: Adult Immunizations up to date. - Social history:: Smoking status: Patient/guardian denies using tobacco. - Ebola Screening: : Patient negative for fever greater than or equal to 101.5 degrees Fahrenheit, and additional compatible Ebola Virus Disease symptoms Patient denies exposure to infectious person Patient denies travel to an Ebola-affected area in the 21 days before illness onset No symptoms or risks identified at this time. ROS: 11:37 Constitutional: Negative for fever, chills, and weight loss, Eyes: Negative for injury, nh pain, redness, and discharge, ENT: Negative for injury, pain, and discharge, Neck: Negative for injury, pain, and swelling, Cardiovascular: Negative for chest pain, palpitations, and edema, Respiratory: Negative for shortness of breath, cough, wheezing, and pleuritic chest pain, Back: Negative for injury and pain, : Negative for injury, bleeding, discharge, and swelling, MS/Extremity: Negative for injury and deformity, Skin: Negative for injury, rash, and discoloration, Neuro: Negative for headache, weakness, numbness, tingling, and seizure. 11:37 Abdomen/GI: Positive for abdominal pain, nausea and vomiting, Negative for diarrhea, constipation, abdominal cramps, abdominal distension, anorexia, dysphagia, hematemesis, black/tarry stool, rectal pain, rectal bleeding, bowel incontinence, flatulence. Exam: 11:37 Constitutional: This is a well developed, well nourished patient who is awake, alert, nh and in no acute distress. Head/Face: Normocephalic, atraumatic. Eyes: Pupils equal round and reactive to light, extra-ocular motions intact. Lids and lashes normal. Conjunctiva and sclera are non-icteric and not injected. Cornea within normal limits. Periorbital areas with no swelling, redness, or edema. ENT: Nares patent. No nasal discharge, no septal abnormalities noted. Tympanic membranes are normal and external auditory canals are clear. Oropharynx with no redness, swelling, or masses, exudates, or evidence of obstruction, uvula midline. Mucous membranes moist. Neck: Trachea midline, no thyromegaly or masses palpated, and no cervical lymphadenopathy. Supple, full range of motion without nuchal rigidity, or vertebral point tenderness. No Meningismus. Chest/axilla: Normal chest wall appearance and motion. Nontender with no deformity. No lesions are appreciated. Cardiovascular: Regular rate and rhythm with a normal S1 and S2. No gallops, murmurs, or rubs. Normal PMI, no JVD. No pulse deficits. Respiratory: Lungs have equal breath sounds bilaterally, clear to auscultation and percussion. No rales, rhonchi or wheezes noted. No increased work of breathing, no retractions or nasal flaring. Back: No spinal tenderness. No costovertebral tenderness. Full range of motion. Skin: Warm, dry with normal turgor. Normal color with no rashes, no lesions, and no evidence of cellulitis. 11:37 Abdomen/GI: Inspection: abdomen appears normal, Bowel sounds: normal, Palpation: moderate abdominal tenderness, Rectal exam: is unremarkable, Indicators: Vital Signs: 11:05 BP 178 / 84; Pulse 77; Resp 18; Temp 98.2(O); Pulse Ox 97% ; Weight 91.17 kg; Height 5 sv ft. 7 in. (170.18 cm); Pain 6/10; 12:15 BP 150 / 82; Pulse 72; Resp 18; Pulse Ox 99% on R/A; Pain 6/10; em 13:47 BP 147 / 82; Pulse 71; Resp 17; Temp 98.5(O); Pulse Ox 96% on R/A; mh5 11:05 Body Mass Index 31.48 (91.17 kg, 170.18 cm) sv MDM: 11:20 Patient medically screened. wv 13:51 Data reviewed: vital signs, nurses notes, lab test result(s), radiologic studies, I nh have discussed the patient's presentation/case with the attending Emergency Department Physician; and as a result, I will discharge patient. Counseling: I had a detailed discussion with the patient and/or guardian regarding: the historical points, exam findings, and any diagnostic results supporting the discharge/admit diagnosis, lab results, radiology results, to return to the emergency department if symptoms worsen or persist or if there are any questions or concerns that arise at home. 07/16 11:27 Order name: Basic Metabolic Panel; Complete Time: 12:47 wv 07/16 11:27 Order name: CBC with Diff; Complete Time: 12:47 wv 07/16 11:27 Order name: Creatinine for Radiology; Complete Time: 12:47 wv 07/16 11:27 Order name: Hepatic Function; Complete Time: 12:47 wv 07/16 11:27 Order name: Lipase; Complete Time: 12:47 wv 07/16 11:47 Order name: Urine Dipstick--Ancillary (enter results); Complete Time: 14:15 07/16 11:27 Order name: IV Saline Lock; Complete Time: 11:37 wv 07/16 11:27 Order name: Labs collected and sent; Complete Time: 11:37 wv 07/16 11:27 Order name: Urine Dipstick-Ancillary (obtain specimen); Complete Time: 11:37 wv 07/16 11:27 Order name: US Abdomen Limited; Complete Time: 13:50 wv 07/16 12:48 Order name: CT Abd/Pelvis - IV Contrast Only; Complete Time: 13:50 wv Administered Medications: No medications were administered Disposition: 15:25 Co-signature as Attending Physician, Flo Leiva MD I agree with the assessment and kdr plan of care. 15:41 I agree with the assessment and plan of care. kdr Disposition: 07/16/19 13:52 Discharged to Home. Impression: Abdominal and pelvic pain. - Condition is Stable. - Prescriptions for Prilosec 20 mg Oral Capsule, Delayed Release(E.C.) - take 1 capsule by ORAL route once daily; 14 capsule. - Medication Reconciliation Form, Thank You Letter, Antibiotic Education, Prescription Opioid Use form. - Follow up: Private Physician; When: 2 - 3 days; Reason: Recheck today's complaints. - Problem is new. - Symptoms are unchanged. Signatures: Dispatcher [employer] Mandi Kay, FARIDEH RN sv Flo Leiva MD MD kdr Hodges, Niki, [employer] wv Dillon Shepard, DEATH CLAIM CLERK DEATH CLAIM CLERK em Corrections: (The following items were deleted from the chart) 14:18 13:52 07/16/2019 13:52 Discharged to Home. Impression: Abdominal and pelvic pain. em Condition is Stable. Forms are Medication Reconciliation Form, Thank You Letter, Antibiotic Education, Prescription Opioid Use. Follow up: Private Physician; When: 2 - 3 days; Reason: Recheck today's complaints. Problem is new. Symptoms are unchanged. nh
[2019-07-16 14:05] LABS: Urine Blood NEGATIVE (NEG); Urine Glucose 2+ (NEG); Urine Protein TRACE (NEG); Urine Specific Gravity 1.025 (1.005-1.030); Urine pH 5.5 (5.0-7.0)
[2019-07-16 14:46] VITALS: BP 147/82; TEMP 98.5; O2SAT 96
== END 2019-07-16 14:18 | disposition home or self-care (01) ==
LOC: ER 11:00
DX: R10.2 Pelvic and perineal pain (principal); I10 Essential (primary) hypertension
CPT/HCPCS: 85025; 80048; 36415; 80076; 81003; 83690; 74177; 76705; 99284; Q9967

== ENCOUNTER 2020-03-11 18:17 | Emergency (ER) | payer OTHER ==
--- OUTSIDE RECORDS SUMMARY | 2020-03-11 18:19 | XMS REPORT | Summary of Care ---
:1960 Author Organization [facility] Address [address] [place] [address] Care Team Providers Name Role Phone Pcp, Patient Does Not Have A Primary Care Provider +1-000-00 0-0000 Reason for Visit Reason Comments DYSPNEA Encounter Details Date Type Department Care Team Description 12/16/2019 Telemedicine Visit [facility] ADC Adrianna Sanders DO Dyspnea on exertion Pulmonary Clinic [address] [place] [address] (Primary Dx) [address] [place] [address] [facility] [address] [place] [phone] Allergies No Known Allergiesdocumented as of this encounter (statuses as of 12/16/2019) Medications Medication Sig Dispensed Refills Start Date End Date Status metFORMIN (GLUCOPHAGE) Take 1 tablet 60 tablet 0 03/11/2016 Active 500 mg tablet by mouth 2 (two) times daily. atorvastatin 80 mg tablet Take 80 mg by 0 Active mouth at bedtime. Cholecalciferol, Vitamin Take by mouth 0 Active D3, 1,250 mcg (50,000 weekly. unit) capsule glipiZIDE 10 mg tablet Take 10 mg by 0 Active mouth 2 (two) times daily before breakfast and dinner. Insulin Detemir (LEVEMIR inject 10 Units 0 Active FLEXTOUCH U-100 INSULN) under the skin 100 unit/mL (3 mL) at bedtime. injection losartan 100 mg tablet Take 100 mg by 0 Active mouth daily. amLODIPine 5 mg tablet Take 5 mg by 0 Active mouth daily. hydroCHLOROthiazide 12.5 Take 12.5 mg by 0 Active mg capsule mouth daily. albuterol 90 Inhale 2 Puffs 8.5 g 11 10/21/2019 A ctive mcg/actuation every 6 (six) inhalerIndications: hours as needed Dyspnea on exertion for Wheezing or Shortness of Breath. Nicotine 21-14-7 mg/24 hr Apply 1 Patch 56 Each 0 10/21/2019 Active PTDSIndications: Dyspnea to skin daily. on exertion, Tobacco abuse documented as of this encounter (statuses as of 12/16/2019) Active Problems Not on filedocumented as of this encounter (statuses as of 12/16/2019) Immunizations Name Administration Dates Next Due Influenza Virus Vaccine 08/25/2019 documented as of this encounter Social History Tobacco Use Types Packs/Day Years Used Date Current Every Day Smoker 1 42 Smokeless Tobacco: Never Used Sex Assigned at Date Recorded Not on file Job Start Date Occupation Industry Not on file Not on file Not on file Travel History Travel Start Travel End No recent travel history available. documented as of this encounter Last Filed Vital Signs Not on filedocumented in this encounter Progress Notes Adrianna Sanders DO - 12/16/2019 8:40 AM CDT [facility] Interventional Pulmonology Telemedicine Note Verbal consent obtained from Patient: Natan Johnson for telehealth services provided below. Communication with patient was conducted via Telephone due to patient unable to obtain video call option. Location of Patient: Home Location of Provider: Clinic Date of Service: 12/16/2019 Chief Complaint: Follow up for shortness of breath History of Present Illness: Natan Johnson is a 59 year old male here for follow up of shortness of breath with exertion since he had a stroke over an year ago. Shortness of breath with routine activities including walking and putting on his socks. Does have some associated chest pain that is pleuritic.Lasts for a short period of time and improved with inhaler. Recently had stents placed in heart about 2-3 weeks. Has not noticed any improvement in shortness of breath after stents were placed. Past Medical History: has a past medical history of HTN (hypertension) and Stroke. Past Surgical History: has no past surgical history on file. Family History: family history includes Heart in his father. Social History: reports that he has been smoking. He has a 42.00 pack-year smoking history. He has never used smokeless tobacco. Review of Systems: Review of Systems Constitutional: Negative. HENT: Negative. Eyes: Negative. Respiratory: Positive for shortness of breath. Cardiovascular: Positive for chest pain. Gastrointestinal: Negative. Genitourinary: Negative. Musculoskeletal: Negative. Skin: Negative. Neurological: Negative. Psychiatric/Behavioral: Negative. Endocrine: Endocrine negative Physical Examination: A limited physical exam was able to be performed due to the telephone encounter Physical Exam Constitutional: He is oriented to person, place, and time. No distress. Pulmonary/Chest: No respiratory distress. Neurological: He is alert and oriented to person, place, and time. Psychiatric: Mood, memory, affect and judgment normal. Laboratory/Studies: Assessment & Plan Natan Johnson is a 59 year old male with ICD-10-CM ICD-9-CM 1. Dyspnea on exertion R06.09 786.09 May be pulmonary / COPD vs deconditioning PLAN 1. Continue with Albuterol 2. 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 Will get PFT and 6 MW and CXR next visit 4. Encouraged smoking cessation A total of 15 minutes was spent on the Telephone due to patient unable to obtain video call option with the patient. After visit summary (AVS) documentation will be available through [employer] for this encounter. documented in this encounter Plan of Treatment Health Maintenance Due Date Last Done Comments HEPATITIS C (HCV) SCREEN 1960 PNEUMOCOCCAL 0-64 YEARS COMBINED SERIES (1 of 1 - 02/02/1966 PPSV23) DTaP,Tdap,and Td Vaccines (1 - Tdap) 02/02/1971 COLONOSCOPY 02/02/2010 Zoster Recombinant Vaccine (SHINGRIX) (1 of 2) 02/02/2010 LUNG CANCER SCREEN: Recommended for age 55-80 with 30 02/02/2015 + pack year history INFLUENZA VACCINE Completed 08/25/2019 documented as of this encounter Results Not on filedocumented in this encounter Visit Diagnoses Diagnosis Dyspnea on exertion - Primary Other dyspnea and respiratory abnormalit y documented in this encounter Insurance Payer Benefit Plan / Subscriber ID Effective Dates Phone Addre [facility] xxxxxxxxx 2019-Present Medicaid COMM PLAN - PLUS MANAGED MEDICAID documented as of this encounter
--- OUTSIDE RECORDS SUMMARY | 2020-03-11 18:19 | XMS REPORT | Clinical Summary ---
:1960 Author Organization [facility] Address [address] [place] [address] Care Team Providers Name Role Phone Unavailable Primary Care Provider Unavailable Allergies No Known Allergies Medications Medication Sig Dispensed Refills Start Date End Date Status aspirin 325 MG tablet Take 1 tablet 30 tablet 11 05/30/201801/2019 (325 mg total) by mouth daily. atorvastatin Take 2 tablets 60 tablet 11 05/29/2018 05/29/2019 (LIPITOR) 40 MG (80 mg total) by tablet mouth nightly. Active Problems Problem Noted Date Stroke 05/27/2018 Immunizations Name Dates Previously Given Next Due Influenza Four-QIV Non-PF 5+ YR 05/28/2018 Social History Tobacco Use Types Packs/Day Years Used Date Never Assessed Sex Assigned at Date Recorded Not on file Job Start Date Occupation Industry Not on file Not on file Not on file Travel History Travel Start Travel End No recent travel history available. Last Filed Vital Signs Not on file Plan of Treatment Not on file Results Not on fileafter 03/11/2019 Advance Directives For more information, please contact:[facility] Ftlcit[address] [place], [place] [phone] Code Status Date Activated Date Inactivated Comments Full Code 05/27/2018 10:51 PM 05/30/2018 12:20 AM This code status was determined by: Patient
--- OUTSIDE RECORDS SUMMARY | 2020-03-11 18:19 | XMS REPORT | Summary of Care ---
:1960 Author Organization [facility] Address [address] [place] [address] Care Team Providers Name Role Phone Pcp, Patient Does Not Have A Primary Care Provider +1-000-00 0-0000 Reason for Visit Reason Comments Refill Request Encounter Details Date Type Department Care Team Description 12/15/2019 Refill [facility] ADC Pulmonary Adrianna Sanders DO Refill Request Clinic [address] Sandra Foster [address] [place] [phone] Allergies No Known Allergiesdocumented as of this encounter (statuses as of 12/15/2019) Medications Medication Sig Dispensed Refills Start Date [...] as of this encounter (statuses as of 12/15/2019) Active Problems Not on filedocumented as of this encounter (statuses as of 12/15/2019) Immunizations Name Administration Dates Next Due Influenza [...] Signs Not on filedocumented in this encounter Plan of Treatment Date Type Specialty Care Team Description 12/16/2019 Office Visit Pulmonary Disease Adrianna Sanders, [address] [place] [phone] Health Maintenance Due Date Last Done Comments [...] encounter Visit Diagnoses Diagnosis Dyspnea on exertion Other dyspnea and respiratory abnormalit y Tobacco abuse Tobacco use disorder documented in this encounter Insurance Payer Benefit Plan / Subscriber ID Effective Dates Phone Addre ss Type Group [facility] xxxxxxxxx 2019-Present Medicaid COMM PLAN - PLUS MANAGED MEDICAID documented as of this encounter
[2020-03-11] MEDS ORDERED: BENZONATATE 100 MG CAP PO ONE (19:14)
--- NOTE | 2020-03-11 20:08 | RAD REPORT ---
EXAM DESCRIPTION: [place] Single View03/11/2020 7:56 pm CLINICAL HISTORY: cough COMPARISON: 2017 FINDINGS: The lungs appear clear of acute infiltrate. The heart is normal size IMPRESSION: No acute abnormalities displayed
--- NOTE | 2020-03-11 20:58 | EDPHYS ---
Physician Documentation [facility] Name: Natan Johnson Age: 60 yrs Sex: Male : 1960 Arrival Date: 03/11/2020 Time: 18:29 Bed 15 Private MD: ED Physician Lisandro Bentley HPI: 03/11 18:50 This 60 yrs old Male presents to ER via Ambulatory with complaints of Sore cp Throat, Cough. 18:50 The patient presents with sore throat. Onset: The symptoms/episode began/occurred 9 cp day(s) ago. Severity of symptoms: in the emergency department the symptoms are unchanged, despite home interventions. Associated signs and symptoms: Pertinent positives: chest pain, cough, Pertinent negatives dysphagia, fever, headache, shortness of breath, vomiting. Historical: - Allergies: 18:31 No Known Allergies; sv - PMHx: 18:31 CVA; Diabetes - NIDDM; Hypertension; sv - PSHx: 18:31 None; sv - Immunization history:: Adult Immunizations up to date. - Social history:: Smoking status: Patient reports the use of cigarette tobacco products, smokes one-half pack cigarettes per day. ROS: 19:00 Constitutional: Negative for body aches, chills, fever, poor PO intake. cp 19:00 Eyes: Negative for injury, pain, redness, and discharge. cp 19:00 ENT: Positive for sore throat, Negative for drainage from ear(s), ear pain, difficulty swallowing, difficulty handling secretions. 19:00 Cardiovascular: Positive for chest pain, with cough, Negative for edema, palpitations. 19:00 Respiratory: Positive for cough, "sounds productive", Negative for shortness of breath, wheezing. 19:00 Abdomen/GI: Negative for abdominal pain, nausea, vomiting, and diarrhea, constipation. 19:00 Back: Negative for radiated pain. 19:00 Neuro: Negative for altered mental status, headache, weakness. 19:00 All other systems are negative. Exam: 19:05 Constitutional: The patient appears in no acute distress, alert, awake, cp non-diaphoretic, non-toxic, well developed, well nourished. 19:05 Head/Face: Normocephalic, atraumatic. cp 19:05 Eyes: Periorbital structures: appear normal, Conjunctiva: normal, no exudate, no injection, Lids and lashes: appear normal, bilaterally. 19:05 ENT: External ear(s): are unremarkable, Ear canal(s): are normal, clear, TM's: dullness, bilaterally, Nose: is normal, Mouth: Lips: moist, Oral mucosa: moist, Posterior pharynx: Tonsils: no enlargement, no exudate, swelling, is not appreciated, erythema, that is mild, exudate, is not appreciated. 19:05 Neck: ROM/movement: is normal, is supple, without pain, no range of motions limitations, no meningismus. 19:05 Chest/axilla: Inspection: normal, Palpation: is normal, no crepitus, no tenderness. 19:05 Cardiovascular: Rate: normal, Rhythm: regular, Edema: is not appreciated. 19:05 Respiratory: the patient does not display signs of respiratory distress, Respirations: normal, no use of accessory muscles, no retractions, labored breathing, is not present, Breath sounds: bronchial sounds, that are mild, are heard diffusely, decreased breath sounds, are not appreciated, stridor, is not appreciated, wheezing: is not appreciated. 19:05 Abdomen/GI: Exam negative for discomfort, distension, guarding, Inspection: abdomen appears normal. Vital Signs: 18:31 BP 116 / 78; Pulse 88; Resp 16; Temp 97.9(TE); Pulse Ox 99% ; Weight 95.25 kg; Height 5 sv ft. 7 in. (170.18 cm); 21:00 BP 118 / 90; Pulse 86; Resp 16; Pulse Ox 100% on R/A; vc 18:31 Body Mass Index 32.89 (95.25 kg, 170.18 cm) sv MDM: 18:35 Patient medically screened. kaiden 19:00 Differential diagnosis: influenza, pharyngitis, tonsillitis, uvulitis, bronchitis, cp pneumonia, COVID-19 upper respiratory infection. 20:56 Data reviewed: vital signs, nurses notes, lab test result(s), radiologic studies, plain cp films. 20:56 Counseling: I had a detailed discussion with the patient and/or guardian regarding: the cp historical points, exam findings, and any diagnostic results supporting the discharge/admit diagnosis, lab results, radiology results, to return to the emergency department if symptoms worsen or persist or if there are any questions or concerns that arise at home. ED course: VSS. Patient appears non-toxic and no signs of respiratory distress noted. Will discharge to home for continued monitoring. 03/11 18:46 Order name: COVID-19 cp 03/11 18:46 Order name: Flu cp 03/11 18:46 Order name: CXR XRAY; Complete Time: 20:45 cp 03/11 18:46 Order name: Strep; Complete Time: 20:45 cp 03/11 20:47 Order name: Throat Culture EDAZ 03/11 18:46 Order name: Droplet/Contact Precautions; Complete Time: 19:19 cp 03/11 18:46 Order name: Labs collected and sent; Complete Time: 19:19 cp 03/11 18:46 Order name: O2 Per Protocol; Complete Time: 19:19 cp Administered Medications: 19:10 Drug: Tessalon Perle 200 mg Route: PO; vc 19:49 Follow up: Response: No adverse reaction vc Disposition: 03/12 18:11 Co-signature as Attending Physician, Lisandro Bentley MD I agree with the assessment and [facility] plan of care. Disposition: 03/11/20 20:57 Discharged to Home. Impression: Acute bronchitis. - Condition is Stable. - Discharge Instructions: Acute Bronchitis, Adult. - Prescriptions for Tessalon Perles 100 mg Oral Capsule - take 2 capsule by ORAL route every 8 hours As needed; 30 capsule. Zithromax Z- Devendra 250 mg Oral Tablet - take 1 tablet by ORAL route as directed for 5 days Day 1 - take two (2) tablets one time. Day 2, 3, 4 , 5 take one (1) tablet once daily.; 6 tablet. Albuterol Sulfate 90 mcg/actuation - inhale 1-2 puff by INHALATION route every 4-6 hours; 1 Inhaler. - Medication Reconciliation Form, Thank You Letter, Antibiotic Education, Prescription Opioid Use form. - Follow up: Private Physician; When: 2 - 3 days; Reason: Recheck today's complaints. - Problem is new. - Symptoms have improved. Signatures: Dispatcher [employer] EDMandi Anders RN RN sv Anderson, Corey, MD MD cha Page, Corey, PA PA cp [place], MyKena 2 Thao Rich RN RN vc Corrections: (The following items were deleted from the chart) 03/11 21:15 20:57 03/11/2020 20:57 Discharged to Home. Impression: Acute bronchitis. Condition is mw2 Stable. Forms are Medication Reconciliation Form, Thank You Letter, Antibiotic Education, Prescription Opioid Use. Follow up: Private Physician; When: 2 - 3 days; Reason: Recheck today's complaints. Problem is new. Symptoms have improved. cp
--- NOTE | 2020-03-11 20:58 | ER ---
Nurse's Notes [facility] Name: Natan Johnson Age: 60 yrs Sex: Male : 1960 Arrival Date: 03/11/2020 Time: 18:29 Bed 15 Private MD: Diagnosis: Acute bronchitis Presentation: 03/11 18:29 Chief complaint: Patient states: cough, chest pain only when he is coughing, sore sv throat since 03/02/20, has taken OTC meds with no relief. Coronavirus screen: Patient reports a cough. Patient denies shortness of breath or difficulty breathing. Patient denies measured and/or subjective temperature greater than 100.4F prior to today's visit. Patient denies travel on a cruise ship or to a country the [facility] currently lists as an affected area. Patient denies contact with known and/or suspected case of COVID-19. Proceed with normal triage. Ebola Screen: No symptoms or risks identified at this time. Risk Assessment: Do you want to hurt yourself or someone else? Patient reports no desire to harm self or others. Onset of symptoms was February 29, 2020. 18:29 Method Of Arrival: Ambulatory sv 18:29 Acuity: JEB 3 sv 18:31 Initial Sepsis Screen: Does the patient meet any 2 criteria? No. Patient's initial sv sepsis screen is negative. Does the patient have a suspected source of infection? No. Patient's initial sepsis screen is negative. Triage Assessment: 18:35 General: Appears in no apparent distress. Behavior is calm, cooperative, appropriate vc for age. Historical: - Allergies: 18:31 No Known Allergies; sv - PMHx: 18:31 CVA; Diabetes - NIDDM; Hypertension; sv - PSHx: 18:31 None; sv - Immunization history:: Adult Immunizations up to date. - Social history:: Smoking status: Patient reports the use of cigarette tobacco products, smokes one-half pack cigarettes per day. Screenin:35 Abuse screen: Denies threats or abuse. Nutritional screening: No deficits noted. vc Tuberculosis screening: No symptoms or risk factors identified. Fall Risk None identified. Assessment: 18:35 General: Appears in no apparent distress. uncomfortable, ill, Behavior is calm, vc cooperative, appropriate for age. Pain: Complains of pain in throat and headache Pain does not radiate. Pain currently is 10 out of 10 on a pain scale. Neuro: Level of Consciousness is awake, alert, obeys commands, Oriented to person, place, time, situation. Cardiovascular: Capillary refill < 3 seconds Patient's skin is warm and dry. Respiratory: Airway is patent Respiratory effort is even, unlabored, Breath sounds are clear bilaterally. GI: No signs and/or symptoms were reported involving the gastrointestinal system. : No signs and/or symptoms were reported regarding the genitourinary system. EENT: Throat is pink Reports nasal congestion nasal discharge pain when swallowing. Derm: Skin is intact, is healthy with good turgor, Skin temperature is warm. 19:35 Reassessment: Patient appears in no apparent distress at this time. Patient and/or vc family updated on plan of care and expected duration. Pain level reassessed. Patient is alert, oriented x 3, equal unlabored respirations, skin warm/dry/pink. 20:35 Reassessment: Patient appears in no apparent distress at this time. Patient and/or vc family updated on plan of care and expected duration. Pain level reassessed. Patient is alert, oriented x 3, equal unlabored respirations, skin warm/dry/pink. 21:00 Reassessment: Patient appears in no apparent distress at this time. Patient and/or vc family updated on plan of care and expected duration. Pain level reassessed. Patient is alert, oriented x 3, equal unlabored respirations, skin warm/dry/pink. Patient states symptoms have not improved. Vital Signs: 18:31 BP 116 / 78; Pulse 88; Resp 16; Temp 97.9(TE); Pulse Ox 99% ; Weight 95.25 kg; Height 5 sv ft. 7 in. (170.18 cm); 21:00 BP 118 / 90; Pulse 86; Resp 16; Pulse Ox 100% on R/A; vc 18:31 Body Mass Index 32.89 (95.25 kg, 170.18 cm) sv ED Course: 18:29 Patient arrived in ED. sv 18:30 Triage completed. sv 18:31 Arm band placed on. sv 18:35 Lisandro Jeffers PA is PHCP. cp 18:35 Lisandro Bentley MD is Attending Physician. cp 18:35 Patient has correct armband on for positive identification. Bed in low position. Call vc light in reach. Pulse ox on. NIBP on. 18:48 Thao Rich, RN is Primary Nurse. vc 19:18 Flu and/or RSV swab sent to lab. Strep swab sent to lab. Pt swabbed for COVID-19. jp3 19:56 CXR XRAY In Process Unspecified. EDMS 21:15 No provider procedures requiring assistance completed. Patient did not have IV access vc during this emergency room visit. Administered Medications: 19:10 Drug: Tessalon Perle 200 mg Route: PO; vc 19:49 Follow up: Response: No adverse reaction vc Outcome: 20:57 Discharge ordered by MD. cp 21:15 Patient left the ED. mw2 21:15 Discharged to home ambulatory. vc 21:15 Condition: good 21:15 Discharge instructions given to patient, Instructed on discharge instructions, follow up and referral plans. medication usage, Self quarantine until receiving results for COVID swab. Demonstrated understanding of instructions, follow-up care, medications, Prescriptions given X 3. Addendum: 03/15/2020 13:11 Addendum: COVID-19 Result: Negative result given to RN to notify pt. Attempted to krystyna campbell contact pt regarding negative COVID-19 swab results. Left voice mail. 13:16 Addendum: COVID-19 Result: Negative result given to RN to notify pt. Contacted by: Krysta Mcmahon RN. Notified pt of negative COVID 19 swab results. Pt advised that even with a negative test result they should remain in isolation until symptom free for 3 days without medication. Pt also advised to return to the ED for worsening symptoms. Signatures: Dispatcher [facility] Brooklynn Mcmahon RN RN dmMandi Perez RN RN sv Page, Corey, PA PA cp [place], MyKena mw2 Jeffrey Farris jp3 Thao Rich RN RN vc Corrections: (The following items were deleted from the chart) 03/11 18:34 18:31 Pulse 88bpm; Resp 16bpm; Pulse Ox 99%; Temp 97.9F Temporal; 95.25 kg; Height 5 sv ft. 7 in.; BMI: 32.8; sv 03/15 13:12 13:11 Addendum: COVID-19 Result: Negative result given to RN to notify pt. Attempted to dm5 contact pt regarding negative COVID-19 swab results. dm5
[2020-03-11 21:47] VITALS: BP 116/78; TEMP 97.9; O2SAT 99
== END 2020-03-11 21:15 | disposition home or self-care (01) ==
LOC: ER 18:17
DX: J20.9 Acute bronchitis, unspecified (principal); Z20.828 Contact with and (suspected) exposure to other viral communicable diseases; I10 Essential (primary) hypertension; F17.210 Nicotine dependence, cigarettes, uncomplicated
CPT/HCPCS: 87070; 87081; 87804 ×2; 71045; 99284; U0001

== ENCOUNTER 2020-12-25 12:15 | Emergency (ER) | payer OTHER ==
[2020-12-25 13:09] LABS: Absolute Lymphocytes (CBC) 1.5 K/uL (0.7-4.9); Hematocrit 46.9 % (39.6-49.0); Lymphocytes % 13.5 % (15.3-44.8); MPV 9.5 fL (7.6-11.3); RBC Red Blood Cell Count 5.37 M/uL (4.33-5.43)
[2020-12-25 13:35] LABS: ALT/SGPT 24 U/L (12-78); AST/SGOT 13 U/L (15-37); Albumin 4.1 g/dL (3.4-5.0); Alkaline Phosphatase 127 U/L (45-117); BUN Blood Urea Nitrogen 23 mg/dL (7-18); Bicarbonate 26 mmol/L (21-32); Bilirubin Direct 0.2 mg/dL (0-0.2); Bilirubin Total 0.8 mg/dL (0.2-1.0); Glucose Level 174 mg/dL (74-106); Magnesium 2.1 mg/dL (1.8-2.4); NT PRO-BNP 32 pg/mL (<125); Potassium 3.8 mmol/L (3.5-5.1); Protein, Total 7.7 g/dL (6.4-8.2); Sodium Level 138 mmol/L (136-145); Troponin (Emerg Dept Use Only) < 0.02 ng/mL (0.0-0.045)
--- NOTE | 2020-12-25 14:05 | RAD REPORT ---
EXAM DESCRIPTION: RAD - Chest Single View - 12/25/2020 1:44 pm CLINICAL HISTORY: CHEST PAIN COMPARISON: Portable February 2020 TECHNIQUE: AP portable chest image was obtained 12/25/2020 1:44 pm . FINDINGS: Lung volumes are low. Interstitial pattern is not significantly different from comparison. No significant failure or volume overload. No peripheral consolidation or mass. Heart and vasculature are normal. No measurable pleural effusion and no pneumothorax. No acute bony abnormality seen. No acute aortic findings suspected. IMPRESSION: Limited portable study showing no acute cardiopulmonary process. No significant change from comparison study.
[2020-12-25 14:59] LABS: SARS-COV-2 RT PCR NEGATIVE (NEGATIVE)
--- NOTE | 2020-12-25 15:48 | ER ---
Nurse's Notes [facility] Name: Natan Johnson Age: 60 yrs Sex: Male : 1960 Arrival Date: 12/25/2020 Time: 12:16 Bed 27 Private MD: Diagnosis: Acute upper respiratory infection, unspecified Presentation: 12/25 12:24 Chief complaint: Patient states: chest pressure, sore throat, nausea and body aches em since Friday, denies cough or fever. Coronavirus screen: Client denies travel out of the [place] in the last 14 days. Coronavirus screen: Client denies travel out of the [place] in the last 14 days. Ebola Screen: Patient negative for fever greater than or equal to 101.5 degrees Fahrenheit, and additional compatible Ebola Virus Disease symptoms Patient denies exposure to infectious person. Patient denies travel to an Ebola-affected area in the 21 days before illness onset. No symptoms or risks identified at this time. Initial Sepsis Screen: Does the patient meet any 2 criteria? No. Patient's initial sepsis screen is negative. Does the patient have a suspected source of infection? No. Patient's initial sepsis screen is negative. Risk Assessment: Do you want to hurt yourself or someone else? Patient reports no desire to harm self or others. Onset of symptoms was December 25, 2020. 12:24 Method Of Arrival: Ambulatory em 12:24 Acuity: JEB 3 em Historical: - Allergies: 12:26 No Known Allergies; em - PMHx: 12:26 Diabetes - NIDDM; CVA; Hypertension; em - PSHx: 12:26 Heart stents; em - Immunization history:: Adult Immunizations up to date. - Social history:: Smoking status: Patient denies any tobacco usage or history of. Screenin:42 Abuse screen: Denies threats or abuse. Denies injuries from another. Abuse screen: zb Denies threats or abuse. Nutritional screening: No deficits noted. Tuberculosis screening: No symptoms or risk factors identified. Fall Risk None identified. Assessment: 13:00 General: Appears uncomfortable, Behavior is calm, cooperative, appropriate for age, zb Reports feeling ill for > 3 days, Denies fever. Pain: Complains of pain in generalized body aches and chest Pain does not radiate. Pain currently is 8 out of 10 on a pain scale. Quality of pain is described as pressure, Pain began Enoc. Neuro: Level of Consciousness is awake, alert, obeys commands, Oriented to person, place, time, situation. Cardiovascular: Heart tones S1 S2 Capillary refill < 3 seconds Patient's skin is warm and dry. Respiratory: Airway is patent Respiratory effort is even, unlabored, Respiratory pattern is regular, symmetrical, Breath sounds are clear bilaterally. GI: Abdomen is flat. Derm: Skin is intact, is healthy with good turgor, Skin is dry, Skin is normal, Skin temperature is warm. Musculoskeletal: Range of motion: intact in all extremities. 14:00 Reassessment: Patient appears in no apparent distress at this time. Patient and/or zb family updated on plan of care and expected duration. Pain level reassessed. Patient is alert, oriented x 3, equal unlabored respirations, skin warm/dry/pink. no changes at this time patient awaking results. laying in bed. 15:21 Reassessment: Patient appears in no apparent distress at this time. Patient and/or zb family updated on plan of care and expected duration. Pain level reassessed. Patient is alert, oriented x 3, equal unlabored respirations, skin warm/dry/pink. updated patient on poc. no issues at this time. patient remains lying in bed awaiting results. 16:29 Reassessment: Patient appears in no apparent distress at this time. Patient and/or zb family updated on plan of care and expected duration. Pain level reassessed. Patient is alert, oriented x 3, equal unlabored respirations, skin warm/dry/pink. d/c instruction given. patient ambulated out of hospital. Vital Signs: 12:24 BP 131 / 81; Pulse 83; Resp 18; Temp 97.7; Pulse Ox 99% on R/A; Weight 85.73 kg; Height em 5 ft. 7 in. (170.18 cm); Pain 7/10; 13:30 BP 128 / 86; Pulse 68; Resp 16; Pulse Ox 98% on R/A; zb 14:35 BP 118 / 73; Pulse 66; Resp 16; Pulse Ox 95% on R/A; zb 15:21 BP 124 / 66; Pulse 69; Resp 17; Pulse Ox 98% on R/A; zb 16:30 BP 121 / 70; Pulse 70; Resp 16; Pulse Ox 100% on R/A; zb 12:24 Body Mass Index 29.60 (85.73 kg, 170.18 cm) ED Course: 12:16 Patient arrived in ED. ds1 12:25 Triage completed. em 12:26 [facility] Abdalla F[facility]-C [facility] kb 12:26 Lavonne Spann MD is Attending Physician. kb 12:26 Arm band placed on. em 12:40 Inserted saline lock: 20 gauge in left antecubital area, using aseptic technique. Blood zb collected. 13:00 Maegan Jenkins, RN is Primary Nurse. zb 13:20 Patient maintains SpO2 saturation greater than 95% on room air. zb 13:42 X-ray completed. Portable x-ray completed in exam room. Patient tolerated procedure mh1 well. 13:42 Patient has correct armband on for positive identification. Placed in gown. Bed in low zb position. Call light in reach. Side rails up X 1. nurse monitoring on. Pulse ox on. NIBP on. Door closed. Noise minimized. 13:43 XRAY Chest (1 view) In Process Unspecified. EDMS 16:30 No provider procedures requiring assistance completed. IV discontinued, intact, zb bleeding controlled, No redness/swelling at site. Pressure dressing applied. Administered Medications: No medications were administered Outcome: 15:47 Discharge ordered by . kb 16:30 Discharged to home ambulatory. zb 16:30 Condition: stable 16:30 Discharge instructions given to patient, Instructed on discharge instructions, follow up and referral plans. Demonstrated understanding of instructions, follow-up care. 16:30 Patient left the ED. zb Signatures: Dispatcher [employer] EDRI Mima Abdalla FNP-C FNP-Hollie Garnica 1 Dillon Shepard, RN RN Melissa Fiore [facility] Maegan Jenkins RN RN zb
--- NOTE | 2020-12-25 15:48 | EDPHYS ---
Physician Documentation [facility] Name: Natan Johnson Age: 60 yrs Sex: Male : 1960 Arrival Date: 12/25/2020 Time: 12:16 Bed 27 Private MD: ED Physician Lavonne Spann HPI: 12/25 12:43 This 60 yrs old Male presents to ER via Ambulatory with complaints of Chest kb Pressure, Body Aches. 12:43 The patient or guardian reports flu symptoms, myalgias. Onset: The symptoms/episode kb began/occurred 4 day(s) ago. Severity of symptoms: At their worst the symptoms were moderate, in the emergency department the symptoms are unchanged. Modifying factors: The symptoms are alleviated by nothing, the symptoms are aggravated by nothing. Associated signs and symptoms: Pertinent positives: chest pain, sore throat. The patient has not experienced similar symptoms in the past. The patient has not recently seen a physician. Pt reports bodyaches, congestion, sore throat, headache, chest pressure, chills, and malaise for 4 days. . Historical: - Allergies: 12:26 No Known Allergies; em - PMHx: 12:26 Diabetes - NIDDM; CVA; Hypertension; em - PSHx: 12:26 Heart stents; em - Immunization history:: Adult Immunizations up to date. - Social history:: Smoking status: Patient denies any tobacco usage or history of. ROS: 12:37 Respiratory: Negative for shortness of breath, cough, wheezing, and pleuritic chest kb pain, Abdomen/GI: Negative for abdominal pain, nausea, vomiting, diarrhea, and constipation, MS/Extremity: Negative for injury and deformity, Skin: Negative for injury, rash, and discoloration. 12:37 Constitutional: Positive for body aches, chills, fatigue, malaise. 12:37 ENT: Positive for sinus congestion, sore throat. 12:37 Cardiovascular: Positive for chest pressure/congestion. 12:37 Neuro: Positive for headache. Exam: 12:37 Constitutional: This is a well developed, well nourished patient who is awake, alert, kb and in no acute distress. Head/Face: Normocephalic, atraumatic. Cardiovascular: Regular rate and rhythm with a normal S1 and S2. No gallops, murmurs, or rubs. No pulse deficits. Respiratory: Respirations even and unlabored. No increased work of breathing, no retractions or nasal flaring. Abdomen/GI: Soft, non-tender. No distention Skin: Warm, dry with normal turgor. Normal color. MS/ Extremity: Pulses equal, no cyanosis. Neurovascular intact. Full, normal range of motion. Neuro: Awake and alert, GCS 15, oriented to person, place, time, and situation. Moves all extremities. Normal gait. 12:37 ECG was reviewed by the Attending Physician. Vital Signs: 12:24 BP 131 / 81; Pulse 83; Resp 18; Temp 97.7; Pulse Ox 99% on R/A; Weight 85.73 kg; Height em 5 ft. 7 in. (170.18 cm); Pain 7/10; 13:30 BP 128 / 86; Pulse 68; Resp 16; Pulse Ox 98% on R/A; zb 14:35 BP 118 / 73; Pulse 66; Resp 16; Pulse Ox 95% on R/A; zb 15:21 BP 124 / 66; Pulse 69; Resp 17; Pulse Ox 98% on R/A; zb 16:30 BP 121 / 70; Pulse 70; Resp 16; Pulse Ox 100% on R/A; zb 12:24 Body Mass Index 29.60 (85.73 kg, 170.18 cm) em MDM: 12:29 Patient medically screened. kb 12:37 Data reviewed: vital signs, nurses notes. Data interpreted: Pulse oximetry: on room air kb is 99 %. Interpretation: normal. 12/25 12:27 Order name: Strep; Complete Time: 15:24 kb 12/25 12:38 Order name: Basic Metabolic Panel; Complete Time: 14:02 kb 12/25 12:38 Order name: CBC with Diff; Complete Time: 13:16 kb 12/25 12:38 Order name: LFT's; Complete Time: 14:02 kb 12/25 12:38 Order name: Magnesium; Complete Time: 14:02 kb 12/25 12:38 Order name: NT PRO-BNP; Complete Time: 14:02 kb 12/25 12:38 Order name: PT-INR; Complete Time: 14:12 kb 12/25 12:38 Order name: Troponin (emerg Dept Use Only); Complete Time: 14:02 kb 12/25 12:38 Order name: XRAY Chest (1 view); Complete Time: 14:12 kb 12/25 12:38 Order name: EKG; Complete Time: 12:39 kb 12/25 14:33 Order name: Throat Culture EDIL 12/25 14:59 Order name: COVID-19/FLU A+B; Complete Time: 15:24 EDMS 12/25 12:38 Order name: Cardiac monitoring; Complete Time: 14:34 kb 12/25 12:38 Order name: EKG - Nurse/Tech; Complete Time: 13:00 kb 12/25 12:38 Order name: IV Saline Lock; Complete Time: 13:00 kb 12/25 12:38 Order name: Labs collected and sent; Complete Time: 13:00 kb 12/25 12:38 Order name: O2 Per Protocol; Complete Time: 13:00 kb 12/25 12:38 Order name: O2 Sat Monitoring; Complete Time: 13:00 kb EC:37 Rate is 80 beats/min. Rhythm is regular. QRS [place] is Normal. WA interval is normal at kb 152 msec. QRS interval is normal at 90 msec. QT interval is normal at 396 msec. Administered Medications: No medications were administered Disposition: 12/25/20 15:47 Discharged to Home. Impression: Acute upper respiratory infection, unspecified. - Condition is Stable. - Discharge Instructions: Upper Respiratory Infection, Adult, [id number], Viral Respiratory Infection, Axvm-Dl-Stax. - Medication Reconciliation Form, Thank You Letter, Antibiotic Education, Prescription Opioid Use form. - Follow up: Emergency Department; When: As needed; Reason: Worsening of condition. Follow up: Private Physician; When: 2 - 3 days; Reason: Recheck today's complaints, Continuance of care, Re-evaluation by your physician. Addendum: 12/28/2020 06:15 Co-signature as Attending Physician, Lavonne Spann MD. m a2 Signatures: Dispatcher [employer] Mima Coronado, LISSY-C SWEATBAND PERFORATOR-Dillon Chau, RN RN Lavonne Dai MD MD ma2 Brown, Zipporah RN FARIDEH zb Corrections: (The following items were deleted from the chart) 12/25 14:15 12:27 Influenza Screen (A \T\ B)+BA.LAB.BRZ ordered. EDIL EDMS 14:15 12:27 CORONAVIRUS+MR.LAB.BRZ ordered. [facility] EDMS 16:30 15:47 12/25/2020 15:47 Discharged to Home. Impression: Acute upper respiratory zb infection, unspecified. Condition is Stable. Forms are Medication Reconciliation Form, Thank You Letter, Antibiotic Education, Prescription Opioid Use. Follow up: Emergency Department; When: As needed; Reason: Worsening of condition. Follow up: Private Physician; When: 2 - 3 days; Reason: Recheck today's complaints, Continuance of care, Re-evaluation by your physician. kb
[2020-12-25 16:37] VITALS: TEMP 97.7
[2020-12-25 16:43] VITALS: BP 121/70; O2SAT 100
--- NOTE | 2020-12-26 11:20 | EKG ---
Test Date: 2020-12-25 Test Time: 12:30:24 Vaccine Specialist: LENNY MEASUREMENT RESULTS: Intervals: Rate: 80 TN: 152 QRSD: 90 QT: 396 QTc: 456 [place]: P: 35 TN: 152 QRS: -13 T: 61 INTERPRETIVE STATEMENTS: Normal sinus rhythm with sinus arrhythmia Inferior infarct, age undetermined Abnormal ECG Compared to ECG 05/27/2018 16:06:58 Myocardial infarct finding now present Electronically Signed On 12-26-20 11:17:18 CDT by Saúl Park
== END 2020-12-25 16:30 | disposition home or self-care (01) ==
LOC: ER 12:15
DX: J06.9 Acute upper respiratory infection, unspecified (principal); Z20.822 Contact with and (suspected) exposure to COVID-19; I10 Essential (primary) hypertension; Z95.818 Presence of other cardiac implants and grafts
CPT/HCPCS: 93005; 87070; 85025; 80048; 36415; 83735; 85610; 80076; 87081; 84484; 83880; 0240U; 71045; 99285

== ENCOUNTER 2021-08-20 09:46 | Emergency (ER) | payer OTHER ==
[2021-08-20 11:58] LABS: SARS-COV-2 RT PCR POSITIVE (NEGATIVE)
--- NOTE | 2021-08-20 12:10 | ER ---
Nurse's Notes [facility] Name: Natan Johnson Age: 61 yrs Sex: Male : 1960 Arrival Date: 08/20/2021 Time: 09:50 Bed Waiting Private MD: Diagnosis: Coronavirus infection, unspecified Presentation: 08/20 10:15 Chief complaint: Patient states: he has been having sore throat and body aches for a ap3 couple of days. Coronavirus screen: fatigue, muscle pain, Client presents with at least one sign or symptom that may indicate coronavirus-19. Standard/surgical mask placed on the client. Provider contacted for isolation considerations. Ebola Screen: No symptoms or risks identified at this time. Initial Sepsis Screen: Does the patient meet any 2 criteria? No. Patient's initial sepsis screen is negative. Does the patient have a suspected source of infection? No. Patient's initial sepsis screen is negative. Risk Assessment: Do you want to hurt yourself or someone else? Patient reports no desire to harm self or others. Onset of symptoms was August 17, 2021. 10:15 Method Of Arrival: Ambulatory ap3 10:15 Acuity: JEB 4 ap3 Triage Assessment: 10:18 General: Appears in no apparent distress. Behavior is calm, cooperative. Pain: ap3 Complains of pain in generalized body aches. EENT: Reports pain in throat when swallowing. Neuro: Level of Consciousness is awake, alert, obeys commands, Oriented to person, place, time, situation, Gait is steady, Speech is normal. Cardiovascular: Patient's skin is warm and dry. Respiratory: Airway is patent. Historical: - Allergies: 10:18 No Known Allergies; ap3 - Home Meds: 10:18 Metformin Oral [Active]; blood pressure med [Active]; ap3 - PMHx: 10:18 CVA; Diabetes - NIDDM; Hypertension; ap3 - Immunization history:: Client reports having NOT received the Covid vaccine. - Social history:: Smoking status: Patient reports the use of cigarette tobacco products, smokes one pack cigarettes per day. Screenin:19 Abuse screen: Denies threats or abuse. Nutritional screening: No deficits noted. ap3 Tuberculosis screening: No symptoms or risk factors identified. Fall Risk None identified. Assessment: 10:19 Respiratory: Respiratory effort is even, unlabored, Breath sounds are clear bilaterally.ap3 10:20 EENT: Throat with gag reflex present. ap3 Vital Signs: 10:15 BP 127 / 73; Pulse 75; Resp 18; Temp 98.6(TE); Pulse Ox 100% ; Weight 81.65 kg; Height ap3 5 ft. 7 in. (170.18 cm); 10:15 Body Mass Index 28.19 (81.65 kg, 170.18 cm) ap3 ED Course: 09:50 Patient arrived in ED. ds1 10:18 Triage completed. ap3 10:19 [facility] Abd[facility]C [facility]. kb 10:19 Lisandro Bentley MD is Attending Physician. kb 10:19 Arm band placed on left wrist. ap3 10:20 Patient has correct armband on for positive identification. Call light in reach. Pulse ap3 ox on. NIBP on. 12:18 No provider procedures requiring assistance completed. Patient did not have IV access ap3 during this emergency room visit. Administered Medications: No medications were administered Outcome: 12:09 Discharge ordered by . kb 12:18 Discharged to home ambulatory. ap3 12:18 Condition: good 12:18 Discharge instructions given to patient, Instructed on discharge instructions, follow up and referral plans. Demonstrated understanding of instructions, follow-up care. 12:19 Patient left the ED. ap3 Signatures: Mima Abdalla FNP-C FNP-Melissa Gamez ds1 Mey Sol, RN RN ap3
--- NOTE | 2021-08-20 12:10 | EDPHYS ---
Physician Documentation [facility] Name: Natan Johnson Age: 61 yrs Sex: Male : 1960 Arrival Date: 08/20/2021 Time: 09:50 Bed Waiting Private MD: ROMAN Physician Lisandro Bentley HPI: 08/20 12:18 This 61 yrs old Male presents to ER via Ambulatory with complaints of Sore kb Throat, Body Aches. 12:20 The patient or guardian reports cough, that is intermittent, described as moderate. kb Onset: The symptoms/episode began/occurred 3 day(s) ago. Severity of symptoms: At their worst the symptoms were moderate, in the emergency department the symptoms are unchanged. Modifying factors: The symptoms are alleviated by nothing, the symptoms are aggravated by nothing. Associated signs and symptoms: Pertinent positives: rhinorrhea, sore throat, Pertinent negatives: chest pain, diarrhea, ear ache, fever, nausea, vomiting. The patient has not experienced similar symptoms in the past. The patient has not recently seen a physician. Pt reports cough, congestion, and sore throat for 3 days. . Historical: - Allergies: 10:18 No Known Allergies; ap3 - Home Meds: 10:18 Metformin Oral [Active]; blood pressure med [Active]; ap3 - PMHx: 10:18 CVA; Diabetes - NIDDM; Hypertension; ap3 - Immunization history:: Client reports having NOT received the Covid vaccine. - Social history:: Smoking status: Patient reports the use of cigarette tobacco products, smokes one pack cigarettes per day. ROS: 12:20 Constitutional: Negative for fever, chills, and weight loss. kb 12:20 ENT: Positive for rhinorrhea, sinus congestion, sore throat. 12:20 Respiratory: Positive for cough, Negative for dyspnea on exertion, hemoptysis, orthopnea, pleurisy, shortness of breath, sputum production, wheezing. 12:20 All other systems are negative. Exam: 12:20 Constitutional: This is a well developed, well nourished patient who is awake, alert, kb and in no acute distress. Head/Face: Normocephalic, atraumatic. ENT: Moist Mucous membranes Cardiovascular: Regular rate and rhythm with a normal S1 and S2. No gallops, murmurs, or rubs. No pulse deficits. Respiratory: Respirations even and unlabored. No increased work of breathing. Talking in full sentences Skin: Warm, dry with normal turgor. Normal color. MS/ Extremity: Pulses equal, no cyanosis. Neurovascular intact. Full, normal range of motion. Neuro: Awake and alert, GCS 15, oriented to person, place, time, and situation. Moves all extremities. Normal gait. Psych: Awake, alert, with orientation to person, place and time. Behavior, mood, and affect are within normal limits. Vital Signs: 10:15 BP 127 / 73; Pulse 75; Resp 18; Temp 98.6(TE); Pulse Ox 100% ; Weight 81.65 kg; Height ap3 5 ft. 7 in. (170.18 cm); 10:15 Body Mass Index 28.19 (81.65 kg, 170.18 cm) ap3 MDM: 10:20 Patient medically screened. kb 12:18 Data reviewed: vital signs, nurses notes. Data interpreted: Pulse oximetry: on room air kb is 100 %. Interpretation: normal. Counseling: I had a detailed discussion with the patient and/or guardian regarding: the historical points, exam findings, and any diagnostic results supporting the discharge/admit diagnosis, lab results, the need for outpatient follow up, a family practitioner, to return to the emergency department if symptoms worsen or persist or if there are any questions or concerns that arise at home. 08/20 10:20 Order name: COVID-19/FLU A+B (Document "Date of Onset" if Symptomatic); Complete Time: kb 12:02 Administered Medications: No medications were administered Disposition Summary: 08/20/21 12:09 Discharge Ordered Location: Home kb Condition: Stable kb Diagnosis - Coronavirus infection, unspecified kb Followup: kb - With: Emergency Department - When: As needed - Reason: Worsening of condition Followup: kb - With: Private Physician - When: 2 - 3 days - Reason: Recheck today's complaints, Continuance of care, Re-evaluation by your physician Discharge Instructions: - Discharge Summary Sheet kb - Viral Respiratory Infection, [id number]-Ah-[id number] kb - COVID-19 kb Forms: - Medication Reconciliation Form kb - Thank You Letter kb - Antibiotic Education kb - Prescription Opioid Use kb Addendum: 08/21/2021 12:51 Co-signature as Attending Physician, Lisandro Mc MD I agree with the assessment and c borden plan of care. Signatures: Dispatcher [employer] Mima Coronado, TARIFF CLERK-C TARIFF CLERK-Ckb Lisandro Bentley MD MD cha Prokisch, Amanda, RN RN ap3
[2021-08-20 12:48] VITALS: BP 127/73; TEMP 98.6; O2SAT 100
== END 2021-08-20 12:19 | disposition home or self-care (01) ==
LOC: ER 09:46
DX: U07.1 COVID-19 (principal); E11.9 Type 2 diabetes mellitus without complications; I10 Essential (primary) hypertension; F17.210 Nicotine dependence, cigarettes, uncomplicated
CPT/HCPCS: 0240U; 99283

== ENCOUNTER 2022-01-29 10:43 | Emergency (ER) | payer OTHER ==
[2022-01-29] MEDS ORDERED: IBUPROFEN 400 MG TAB ONE (11:14)
--- NOTE | 2022-01-29 12:19 | RAD REPORT ---
EXAM DESCRIPTION: RAD - Hand Right 3 View - 01/29/2022 12:08 pm CLINICAL HISTORY: PAINfollowing blunt force trauma COMPARISON: No comparisons FINDINGS: No fracture is identified. There is no dislocation or periosteal reaction noted. Mild IP joint space narrowing seen with marginal spurring. No erosive component. This involves all of the fin gers. MCP joints are generally spared. Patient does have advanced degenerative change at the trapeziu m first metacarpal articulation where there is prominent marginal spurring and joint space narrowing. Degenerative cystic changes are seen in the scaphoid, lunate and triquetrum bones. No suspicious soft tissue finding. 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 No fracture identified.
--- NOTE | 2022-01-29 12:35 | ER ---
Nurse's Notes [facility] Name: Natan Johnson Age: 61 yrs Sex: Male : 1960 Arrival Date: 01/29/2022 Time: 10:44 Bed 12 Private MD: Diagnosis: Contusion of right hand Presentation: 01/29 10:51 Chief complaint: Patient states: he was working on a truck yesterday when his hand ap3 slipped from his wrench and he hit the vehicle with the medial side of his right hand. Coronavirus screen: At this time, the client does not indicate any symptoms associated with coronavirus-19. Ebola Screen: No symptoms or risks identified at this time. Initial Sepsis Screen: Does the patient meet any 2 criteria? No. Patient's initial sepsis screen is negative. Does the patient have a suspected source of infection? No. Patient's initial sepsis screen is negative. Risk Assessment: Do you want to hurt yourself or someone else? Patient reports no desire to harm self or others. Onset of symptoms was January 28, 2022. 10:51 Method Of Arrival: Ambulatory ap3 10:51 Acuity: JEB 4 ap3 Triage Assessment: 10:53 General: Appears in no apparent distress. Behavior is calm, cooperative. Pain: ap3 Complains of pain in medial aspect of right hand Pain currently is 7 out of 10 on a pain scale. Pain began suddenly, 1 day ago. 10:54 Neuro: Level of Consciousness is awake, alert, obeys commands, Oriented to person, ap3 place, time, situation, Appropriate for age Speech is normal. Cardiovascular: Patient's skin is warm and dry. Respiratory: Airway is patent Respiratory effort is even, unlabored. Musculoskeletal: Reports pain in medial aspect of right hand. Injury Description: other. Historical: - Allergies: 10:52 No Known Allergies; ap3 - Home Meds: 10:56 Metformin Oral [Active]; blood pressure med [Active]; ap3 - PMHx: 10:52 CVA; Diabetes - NIDDM; Hypertension; ap3 - Immunization history:: Last tetanus immunization: unknown. - Social history:: Smoking status: Patient reports the use of cigarette tobacco products, smokes one pack cigarettes per day. Screenin:54 Abuse screen: Denies threats or abuse. Nutritional screening: No deficits noted. ap3 Tuberculosis screening: No symptoms or risk factors identified. Fall Risk None identified. Assessment: 11:12 General: Appears in no apparent distress. Behavior is calm, cooperative. Neuro: Level iw of Consciousness is awake, alert, obeys commands, Oriented to person, place, time, situation, Moves all extremities. Full function. Cardiovascular: Patient's skin is warm and dry. Respiratory: Respiratory pattern is regular. Derm: Skin is intact, is healthy with good turgor. Musculoskeletal: Vital Signs: 10:51 BP 126 / 70; Pulse 66; Resp 17; Temp 97.9; Pulse Ox 99% ; Weight 81.65 kg; Height 5 ft. ap3 7 in. (170.18 cm); Pain 9/10; 10:51 Body Mass Index 28.19 (81.65 kg, 170.18 cm) ap3 ED Course: 10:44 Patient arrived in ED. am2 10:45 Lisandro Jeffers PA is PHCP. cp 10:45 Brent Brian MD is Attending Physician. cp 10:52 Triage completed. ap3 10:55 Arm band placed on left wrist. ap3 11:05 Estrella Hall, FARIDEH is Primary Nurse. iw 11:12 No provider procedures requiring assistance completed. Patient did not have IV access iw during this emergency room visit. 11:30 Patient has correct armband on for positive identification. iw 12:10 XRAY Hand RIGHT 3 View In Process Unspecified. EDMS 12:41 Orthoglass splint: Ulnar gutter/Boxer splint applied on right forearm. mh5 Administered Medications: 11:11 Drug: Ibuprofen 800 mg Route: PO; iw 11:30 Follow up: Response: No adverse reaction iw Medication: 11:30 VIS not applicable for this client. iw Outcome: 12:34 Discharge ordered by MD. cp 12:43 Discharged to home ambulatory. iw 12:43 Condition: good 12:43 Discharge instructions given to patient, Instructed on discharge instructions, follow up and referral plans. Demonstrated understanding of instructions, follow-up care. 12:44 Patient left the ED. iw Signatures: Dispatcher [employer] EDMS Estrella Hall RN RN iw Lisandro Jeffers PA PA Alesia Dumont 5 Mey Kerns 2 Mey Sol RN RN ap3 Corrections: (The following items were deleted from the chart) 10:53 10:51 Chief complaint: Patient states: he was working on a truck yesterday when his ap3 hand slipped from his wrench and he hit the vehicle with the lateral side of his right hand. ap3
--- NOTE | 2022-01-29 12:35 | EDPHYS ---
Physician Documentation [facility] Name: Natan Johnson Age: 61 yrs Sex: Male : 1960 Arrival Date: 01/29/2022 Time: 10:44 Bed 12 Private MD: ED Physician Brent Brian HPI: 01/29 11:04 This 61 yrs old Male presents to ER via Ambulatory with complaints of Right cp Hand Injury. 11:05 The patient or guardian reports a contusion, injury. cp 11:05 The complaints affect the right fifth metacarpal. Context: resulted from direct blow cp after hand struck vehicle engine while using wrench. Onset: The symptoms/episode began/occurred yesterday. Associated signs and symptoms: The patient has no apparent associated signs or symptoms. Historical: - Allergies: 10:52 No Known Allergies; ap3 - Home Meds: 10:56 Metformin Oral [Active]; blood pressure med [Active]; ap3 - PMHx: 10:52 CVA; Diabetes - NIDDM; Hypertension; ap3 - Immunization history:: Last tetanus immunization: unknown. - Social history:: Smoking status: Patient reports the use of cigarette tobacco products, smokes one pack cigarettes per day. ROS: 11:10 MS/extremity: Positive for pain, swelling, tenderness, of the right hand, Negative for cp decreased range of motion, deformity, paresthesias. 11:10 Constitutional: Negative for body aches, chills, fever, poor PO intake. cp 11:10 Neck: Negative for pain with movement, pain at rest, stiffness. 11:10 Cardiovascular: Negative for chest pain, palpitations. 11:10 Respiratory: Negative for cough, shortness of breath, wheezing. 11:10 Abdomen/GI: Negative for abdominal pain, nausea, vomiting, and diarrhea, diarrhea, constipation. 11:10 Back: Negative for pain at rest, pain with movement. 11:10 Skin: Negative for rash. 11:10 All other systems are negative. Exam: 11:15 Constitutional: The patient appears in no acute distress, alert, awake, non-toxic, well cp developed, well nourished. 11:15 Musculoskeletal/extremity: Extremities: grossly normal except: noted in the right fifth metacarpal: pain, tenderness, mild swelling, overlying skin intact with no open wounds, ROM: limited active range of motion due to pain, in the right hand, Perfusion: the extremity is normally perfused throughout, the right hand Sensation intact. Vital Signs: 10:51 BP 126 / 70; Pulse 66; Resp 17; Temp 97.9; Pulse Ox 99% ; Weight 81.65 kg; Height 5 ft. ap3 7 in. (170.18 cm); Pain 9/10; 10:51 Body Mass Index 28.19 (81.65 kg, 170.18 cm) ap3 Procedures: 12:45 Splinting: Splint applied to right hand using Orthoglass splint, ulna gutter type. cp applied by tech. Examined by me, post splint application: neurovascular intact. MDM: 11:02 Patient medically screened. cp 12:00 Differential diagnosis: dislocation, closed fracture, contusion, abrasion. cp 12:33 Data reviewed: vital signs, nurses notes, radiologic studies, plain films. cp 12:33 Test interpretation: by ED physician or midlevel provider: plain radiologic studies. cp Counseling: I had a detailed discussion with the patient and/or guardian regarding: the historical points, exam findings, and any diagnostic results supporting the discharge/admit diagnosis, radiology results, to return to the emergency department if symptoms worsen or persist or if there are any questions or concerns that arise at home. Response to treatment: the patient's symptoms have markedly improved after treatment, and as a result, I will discharge patient. 01/29 11:00 Order name: XRAY Hand RIGHT 3 View; Complete Time: 12:30 ap3 01/29 12:41 Order name: Splint - Ulnar Gutter; Complete Time: 12:41 mh5 Administered Medications: 11:11 Drug: Ibuprofen 800 mg Route: PO; iw 11:30 Follow up: Response: No adverse reaction iw Disposition Summary: 01/29/22 12:34 Discharge Ordered Location: Home cp Problem: new cp Symptoms: have improved cp Condition: Stable cp Diagnosis - Contusion of right hand cp Followup: cp - With: Private Physician - When: 2 - 3 days - Reason: Recheck today's complaints Discharge Instructions: - Discharge Summary Sheet cp - Hand Contusion cp Forms: - Medication Reconciliation Form cp - Thank You Letter cp - Antibiotic Education cp - Prescription Opioid Use cp Prescriptions: - Ibuprofen 800 mg Oral Tablet - take 1 tablet by ORAL route every 8 hours As needed take with food; 30 tablet; cp Refills: 0, Product Selection Permitted Addendum: 01/30/2022 23:18 Co-signature as Attending Physician, Brent Brian MD. r n Signatures: Dispatcher [employer] Estrella Velásquez, RN Brent Burton MD MD rn Page, Corey, PA PA cp Martinez, [facility] Mey Sol RN RN ap3
[2022-01-29 13:07] VITALS: BP 126/70; TEMP 97.9; O2SAT 99
== END 2022-01-29 12:44 | disposition home or self-care (01) ==
LOC: ER 10:43
PROC: 2W3CX1Z Immobilization of Right Lower Arm using Splint (ICD-10-PCS; principal; 2022-01-29)
DX: S60.221A Contusion of right hand, initial encounter (principal); E11.9 Type 2 diabetes mellitus without complications; I10 Essential (primary) hypertension; F17.210 Nicotine dependence, cigarettes, uncomplicated
CPT/HCPCS: 99283

== ENCOUNTER 2022-02-21 09:41 | Emergency (ER) | payer OTHER ==
--- NOTE | 2022-02-21 11:04 | RAD REPORT ---
EXAM DESCRIPTION: RAD - Knee Left 3 View - 02/21/2022 10:38 am CLINICAL HISTORY: PAIN COMPARISON: Knee Left 3 View dated 07/15/2017 FINDINGS: No acute fracture. No malalignment. No significant focal degenerative changes. IMPRESSION: No acute osseous abnormality involving the left knee.
--- NOTE | 2022-02-21 11:06 | RAD REPORT ---
EXAM DESCRIPTION: US - Extremity Venous Uni Ltd - 02/21/2022 10:46 am CLINICAL HISTORY: Pain COMPARISON: None. TECHNIQUE: Real-time sonographic evaluation of the left lower extremity deep venous system was perfo rmed. FINDINGS: Normal compressibility, flow augmentation, phasic flow and spontaneous flow is identified in the left lower extremity deep venous system. No intraluminal filling defects seen. Rouleaux flow i s noted in the popliteal and posterior tibial veins. IMPRESSION: No DVT in the left lower extremity.
[2022-02-21] MEDS ORDERED: ACETAMINOPHEN 500 MG TAB ONE (12:10)
[2022-02-21] MEDS ORDERED: NA CHLORIDE 0.9% 1,000 ML ONE (12:23)
[2022-02-21 12:45] LABS: Absolute Lymphocytes (CBC) 1.8 K/uL (0.7-4.9); Hematocrit 44.1 % (39.6-49.0); Lymphocytes % 14.8 % (15.3-44.8); MCV 88.2 fL (80-100); MPV 8.4 fL (7.6-11.3)
[2022-02-21 13:02] LABS: Albumin 3.2 g/dL (3.4-5.0); Bilirubin Direct 0.2 mg/dL (0-0.2); Bilirubin Total 0.6 mg/dL (0.2-1.0); Magnesium 2.3 mg/dL (1.8-2.4); Potassium 3.9 mmol/L (3.5-5.1); Protein, Total 7.8 g/dL (6.4-8.2); Troponin High Sensitivity 3.3 pg/mL (<58.9)
--- NOTE | 2022-02-21 13:04 | RAD REPORT ---
EXAM DESCRIPTION: RAD - Chest Single View - 02/21/2022 12:56 pm CLINICAL HISTORY: hypotension Chest pain. COMPARISON: Chest Single View dated 12/25/2020; Chest Single View dated 03/11/2020; Chest Single View d ated 05/27/2018; Chest Pa And Lat (2 Views) dated 10/26/2017; Hand Right 3 View dated 01/29/2022 FINDINGS: Portable technique limits examination quality. The lungs are grossly clear. The heart is normal in size. No displaced fractures. IMPRESSION: No acute intrathoracic process suspected.
--- NOTE | 2022-02-21 14:24 | EDPHYS ---
Physician Documentation [facility] Name: Natan Johnson Age: 62 yrs Sex: Male : 1960 Arrival Date: 02/21/2022 Time: 09:44 Bed 11 Private MD: ED Physician Lisandro Bentley HPI: 02/21 10:23 This 62 yrs old Male presents to ER via Ambulatory with complaints of Knee cp Pain. 10:25 The patient presents with pain, that is acute, swelling, tenderness. The complaints cp affect the left knee. Context: resulted from kneeling onto piece of metal, the patient can fully bear weight, the patient is able to ambulate, with mild difficulty. Onset: The symptoms/episode began/occurred today. Modifying factors: the symptoms are aggravated by weight bearing, bending knee. Associated signs and symptoms: Pertinent positives: swelling, warmth, Pertinent negatives calf tenderness, fever, numbness, vomiting. Historical: - Allergies: 10:21 No Known Allergies; ap3 - Home Meds: 10:21 blood pressure med [Active]; Metformin Oral [Active]; ap3 - PMHx: 10:21 CVA; Diabetes - NIDDM; Hypertension; ap3 - Immunization history:: Last tetanus immunization: up to date. - Social history:: Smoking status: Patient reports the use of cigarette tobacco products, smokes one pack cigarettes per day. ROS: 10:30 Constitutional: Negative for body aches, chills, fever, poor PO intake. cp 10:30 Eyes: Negative for injury, pain, redness, and discharge. cp 10:30 ENT: Negative for drainage from ear(s), ear pain, sore throat, difficulty swallowing, difficulty handling secretions. 10:30 Cardiovascular: Negative for chest pain, edema, palpitations. 10:30 Respiratory: Negative for cough, shortness of breath, wheezing. 10:30 Abdomen/GI: Negative for abdominal pain, nausea, vomiting, and diarrhea. 10:30 : Negative for urinary symptoms. 10:30 Neuro: Positive for lightheaded, Negative for altered mental status, syncope, weakness. 10:30 All other systems are negative. Exam: 10:35 Constitutional: The patient appears in no acute distress, alert, awake, cp non-diaphoretic, non-toxic, well developed, well nourished. 10:35 Head/Face: Normocephalic, atraumatic. cp 10:35 Eyes: Periorbital structures: appear normal, Pupils: equal, round, and reactive to light and accomodation, Extraocular movements: intact throughout, Conjunctiva: normal, no exudate, no injection, Sclera: no appreciated abnormality, Lids and lashes: appear normal, bilaterally. 10:35 ENT: External ear(s): are unremarkable, Nose: is normal, Mouth: Lips: moist, Oral mucosa: moist, Posterior pharynx: Airway: no evidence of obstruction, patent. 10:35 Chest/axilla: Inspection: normal. 10:35 Cardiovascular: Rate: normal, Rhythm: regular, Edema: is not appreciated, JVD: is not appreciated. 10:35 Respiratory: the patient does not display signs of respiratory distress, Respirations: normal, no use of accessory muscles, no retractions, labored breathing, is not present, Breath sounds: are clear throughout, no decreased breath sounds, no stridor, no wheezing. 10:35 Abdomen/GI: Inspection: abdomen appears normal, Palpation: abdomen is soft and non-tender, in all quadrants. 10:35 Back: pain, is absent, ROM is normal. 10:35 Musculoskeletal/extremity: Extremities: grossly normal except: noted in the anterior knee: pain, swelling, tenderness, mild erythema noted lateral to patella, There is no evidence of decreased ROM, deformity, ROM: full passive range of motion, in the left knee, limited passive range of motion due to pain, in the left knee, Perfusion: the extremity is normally perfused throughout, the left leg Sensation intact. 10:35 Neuro: Orientation: to person, place \T\ time. Mentation: is normal, Cerebellar function: is grossly normal, Motor: moves all fours, strength is normal, Sensation: is normal. 12:27 ECG was reviewed by the Attending Physician. cp Vital Signs: 10:19 BP 90 / 67; Pulse 77; Resp 17; Temp 98.4; Pulse Ox 100% ; Weight 83.91 kg; Height 5 ft. ap3 7 in. (170.18 cm); Pain 9/10; 13:18 BP 123 / 71; Pulse 54; Resp 18; Pulse Ox 100% on R/A; ld1 10:19 Body Mass Index 28.97 (83.91 kg, 170.18 cm) ap3 MDM: 12:04 Patient medically screened. [facility] 14:22 Data reviewed: vital signs, nurses notes, lab test result(s), EKG, radiologic studies, cp plain films, ultrasound. 14:22 Differential diagnosis: closed fracture, contusion, tendonitis, effusion, DVT, cp cellulitis, bursitis. Test interpretation: by ED physician or midlevel provider: ECG, plain radiologic studies. Counseling: I had a detailed discussion with the patient and/or guardian regarding: the historical points, exam findings, and any diagnostic results supporting the discharge/admit diagnosis, lab results, radiology results, the need for outpatient follow up, a family practitioner, to return to the emergency department if symptoms worsen or persist or if there are any questions or concerns that arise at home. Response to treatment: the patient's symptoms have markedly improved after treatment, patient is well hydrated. and as a result, I will discharge patient. 02/21 12:13 Order name: Basic Metabolic Panel; Complete Time: 13:12 02/21 13:12 Interpretation: Normal except: NA 134; GLUC 173; BUN 51; CRE 1.50; GFR 52. 02/21 12:13 Order name: CBC with Diff; Complete Time: 13:12 02/21 13:12 Interpretation: Normal except: WBC 12.1; JOYCE% 74.3; LYM% 14.8; NEUT A 9.0. 02/21 12:13 Order name: LFT's; Complete Time: 13:12 02/21 12:13 Order name: Magnesium; Complete Time: 13:12 02/21 12:13 Order name: NT PRO-BNP; Complete Time: 13:12 02/21 12:13 Order name: Troponin HS; Complete Time: 13:12 02/21 10:23 Order name: XRAY Knee LEFT 3 view; Complete Time: 12:07 02/21 10:23 Order name: US Extremity Venous Unilateral Ltd; Complete Time: 12:07 02/21 12:08 Interpretation: Report reviewed. 02/21 12:13 Order name: XRAY Chest (1 view); Complete Time: 13:12 02/21 12:13 Order name: EKG; Complete Time: 12:14 02/21 12:13 Order name: Cardiac monitoring; Complete Time: 12:29 02/21 12:13 Order name: EKG - Nurse/Tech; Complete Time: 12:29 cp 02/21 12:13 Order name: IV Saline Lock; Complete Time: 12:37 cp 02/21 12:13 Order name: Labs collected and sent; Complete Time: 12:37 cp 02/21 12:13 Order name: O2 Per Protocol; Complete Time: 12:15 cp 02/21 12:13 Order name: O2 Sat Monitoring; Complete Time: 12:15 cp EC:27 Rate is 69 beats/min. Rhythm is regular. ND interval is normal. QRS interval is normal. cp QT interval is normal. Interpreted by me. Reviewed by me. Administered Medications: 12:07 Drug: Tylenol 1000 mg Route: PO; ld1 12:37 Drug: NS 0.9% 1000 ml Route: IV; Rate: 1000 ml/hr; Site: right antecubital; eh3 14:43 Drug: Doxycycline 200 mg Route: PO; eh3 Disposition Summary: 02/21/22 14:23 Discharge Ordered Location: Home cp Problem: new cp Symptoms: have improved cp Condition: Stable cp Diagnosis - Volume depletion, unspecified cp - Cellulitis of left lower limb - left knee cp Followup: cp - With: Private Physician - When: 1 - 2 days - Reason: Recheck today's complaints Discharge Instructions: - Discharge Summary Sheet cp - Cellulitis, Adult cp - Dehydration, Adult cp Forms: - Medication Reconciliation Form cp - Thank You Letter cp - Antibiotic Education cp - Prescription Opioid Use cp Prescriptions: - Doxycycline Hyclate 100 mg Oral Tablet - take 1 tablet by ORAL route every 12 hours; 20 tablet; Refills: 0, Product cp Selection Permitted Signatures: Dispatcher [employer] EDLisandro Fontanez MD MD cha Page, Corey, PA PA cp Mey Sol RN RN ap3 Nadiya St RN RN ld1 Radha Pena 3
--- NOTE | 2022-02-21 14:24 | ER ---
Nurse's Notes [facility] Name: Natan Johnson Age: 62 yrs Sex: Male : 1960 Arrival Date: 02/21/2022 Time: 09:44 Bed 11 Private MD: Diagnosis: Volume depletion, unspecified;Cellulitis of left lower limb-left knee Presentation: 02/21 10:19 Chief complaint: Patient states: he was helping his son work on something when he knelt ap3 down on a piece of metal. patient presents to the ED today complaining of left knee pain, and swelling. Coronavirus screen: At this time, the client does not indicate any symptoms associated with coronavirus-19. Ebola Screen: No symptoms or risks identified at this time. Initial Sepsis Screen: Does the patient meet any 2 criteria? No. Patient's initial sepsis screen is negative. Does the patient have a suspected source of infection? No. Patient's initial sepsis screen is negative. Risk Assessment: Do you want to hurt yourself or someone else? Patient reports no desire to harm self or others. Onset of symptoms was February 19, 2022. 10:19 Method Of Arrival: Ambulatory ap3 10:19 Acuity: JEB 4 ap3 13:12 Acuity: JEB 3 iw Triage Assessment: 10:22 General: Appears uncomfortable, Behavior is calm, cooperative, appropriate for age. ap3 Pain: Complains of pain in left knee. EENT:. Neuro: Level of Consciousness is awake, alert, obeys commands, Oriented to person, place, time, situation. Cardiovascular: Patient's skin is warm and dry. Respiratory: Airway is patent Respiratory effort is even, unlabored, Respiratory pattern is regular, symmetrical. Musculoskeletal: Swelling present in left knee. Historical: - Allergies: 10:21 No Known Allergies; ap3 - Home Meds: 10:21 blood pressure med [Active]; Metformin Oral [Active]; ap3 - PMHx: 10:21 CVA; Diabetes - NIDDM; Hypertension; ap3 - Immunization history:: Last tetanus immunization: up to date. - Social history:: Smoking status: Patient reports the use of cigarette tobacco products, smokes one pack cigarettes per day. Screenin:22 Abuse screen: Denies threats or abuse. Nutritional screening: No deficits noted. ap3 Tuberculosis screening: No symptoms or risk factors identified. Fall Risk No fall in past 12 months (0 pts). Secondary diagnosis (15 points) impaired mobility, No IV (0 pts). Ambulatory Aid- None/Bed Rest/Nurse Assist (0 pts). Gait- Weak (10 pts.). Mental Status- Oriented to own ability (0 pts). Total Parisi Fall Scale indicates Low Risk Score (25-44 pts). Assessment: 12:09 General: Appears in no apparent distress. comfortable, Behavior is calm, cooperative, ld1 appropriate for age. Pain: Complains of pain in left knee Pain does not radiate. Pain currently is 6 out of 10 on a pain scale. Quality of pain is described as throbbing. Neuro: Level of Consciousness is awake, alert, obeys commands, Oriented to person, place, time, situation, Appropriate for age. Cardiovascular: Capillary refill < 3 seconds Patient's skin is warm and dry. Rhythm is. Respiratory: Airway is patent Respiratory effort is even, unlabored. GI: Abdomen is round non-distended, Reports. : No signs and/or symptoms were reported regarding the genitourinary system. EENT: No signs and/or symptoms were reported regarding the EENT system. Derm: Wound noted left knee. Musculoskeletal: No signs and/or symptoms reported regarding the musculoskeletal system. Vital Signs: 10:19 BP 90 / 67; Pulse 77; Resp 17; Temp 98.4; Pulse Ox 100% ; Weight 83.91 kg; Height 5 ft. ap3 7 in. (170.18 cm); Pain 9/10; 13:18 BP 123 / 71; Pulse 54; Resp 18; Pulse Ox 100% on R/A; ld1 10:19 Body Mass Index 28.97 (83.91 kg, 170.18 cm) ap3 ED Course: 09:44 Patient arrived in ED. ja2 09:57 Lisandro Jeffers PA is PHCP. cp 09:57 Lisandro Bentley MD is Attending Physician. cp 10:21 Triage completed. ap3 10:22 Arm band placed on left wrist. ap3 10:35 XRAY Knee LEFT 3 view In Process Unspecified. EDMS 10:48 US Extremity Venous Unilateral Ltd In Process Unspecified. EDMS 12:[address], RN is Primary Nurse. ld1 12:09 Bed in low position. Call light in reach. Side rails up X2. Pulse ox on. NIBP on. Door ld1 closed. Noise minimized. 12:09 No provider procedures requiring assistance completed. ld1 12:36 Inserted saline lock: 20 gauge in right antecubital area, using aseptic technique. eh3 12:58 XRAY Chest (1 view) In Process Unspecified. EDMS 14:53 IV discontinued, intact, bleeding controlled, No redness/swelling at site. Pressure eh3 dressing applied. Administered Medications: 12:07 Drug: Tylenol 1000 mg Route: PO; ld1 12:37 Drug: NS 0.9% 1000 ml Route: IV; Rate: 1000 ml/hr; Site: right antecubital; eh3 14:43 Drug: Doxycycline 200 mg Route: PO; eh3 Medication: 14:54 VIS not applicable for this client. eh3 Outcome: 14:23 Discharge ordered by . bill 14:54 Discharged to home ambulatory, with family. eh3 14:54 Condition: stable 14:54 Discharge instructions given to patient, Instructed on discharge instructions, follow up and referral plans. medication usage, Demonstrated understanding of instructions, follow-up care, medications. 14:55 Patient left the ED. eh3 Signatures: Dispatcher [employer] EDMS Estrella Hall RN RN iw Page, Corey, PA PA cp Prokisch, Amanda, RN RN ap3 Nadiya St RN RN ld1 Jeannette Butts Erin eh3
[2022-02-21] MEDS ORDERED: DOXYCYCLINE 100 MG CAP PO ONE (14:45)
[2022-02-21 15:04] VITALS: TEMP 98.4; O2SAT 100
[2022-02-21 15:06] VITALS: BP 123/71
--- NOTE | 2022-02-22 09:51 | EKG ---
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
== END 2022-02-21 14:55 | disposition home or self-care (01) ==
LOC: ER 09:41
DX: L03.116 Cellulitis of left lower limb (principal); E86.9 Volume depletion, unspecified; E11.9 Type 2 diabetes mellitus without complications; I10 Essential (primary) hypertension; F17.210 Nicotine dependence, cigarettes, uncomplicated; Z86.73 Personal history of transient ischemic attack (TIA), and cerebral infarction without residual deficits
CPT/HCPCS: 93005; 85025; 80048; 36415; 83735; 80076; 84484; 83880; 71045; 73562; 93971; 99284; J7030

== ENCOUNTER 2022-06-20 11:15 | Emergency (ER) | payer OTHER ==
--- NOTE | 2022-06-20 13:21 | ER ---
Nurse's Notes [facility] Name: Natan Johnson Age: 62 yrs Sex: Male : 1960 Arrival Date: 06/20/2022 Time: 11:20 Bed IW2 Private MD: Diagnosis: Influenza Presentation: 06/20 11:44 Chief complaint: Patient states: Body aches, cough, sore throat, N/V/D X 2 days. ld1 Coronavirus screen: Client presents with at least one sign or symptom that may indicate coronavirus-19. Standard/surgical mask placed on the client. Ebola Screen: No symptoms or risks identified at this time. Initial Sepsis Screen: Does the patient meet any 2 criteria? No. Patient's initial sepsis screen is negative. Does the patient have a suspected source of infection? No. Patient's initial sepsis screen is negative. Risk Assessment: Do you want to hurt yourself or someone else? Patient reports no desire to harm self or others. Onset of symptoms was June 20, 2022. 11:44 Method Of Arrival: Ambulatory ld1 11:44 Acuity: JEB 4 ld1 Triage Assessment: 11:44 General: Appears in no apparent distress. comfortable, Behavior is calm, cooperative, ld1 appropriate for age. Pain: Denies pain. EENT: No signs and/or symptoms were reported regarding the EENT system. EENT: Reports. Neuro: Level of Consciousness is awake, alert, confused, Oriented to person, place, time, situation. Cardiovascular: Capillary refill < 3 seconds Patient's skin is warm and dry. Respiratory: Airway is patent Respiratory effort is even, unlabored. GI: Abdomen is round non-distended. : No signs and/or symptoms were reported regarding the genitourinary system. Historical: - Allergies: 11:44 No Known Allergies; ld1 - PMHx: 11:44 CVA; Diabetes - NIDDM; Hypertension; ld1 - PSHx: :44 None; ld1 - Immunization history:: Adult Immunizations up to date, Client reports receiving the 2nd dose of the Covid vaccine. - Social history:: Smoking status: Patient reports the use of cigarette tobacco products, smokes one-half pack cigarettes per day, Patient/guardian denies using alcohol. Screenin:30 Abuse screen: Denies threats or abuse. Denies injuries from another. Nutritional ld1 screening: No deficits noted. Tuberculosis screening: No symptoms or risk factors identified. Fall Risk None identified. Assessment: 13:30 Reassessment: See triage assessmnet. Respiratory: Airway is patent Respiratory effort ld1 is even, unlabored. 13:31 Respiratory: ld1 Vital Signs: 11:44 BP 101 / 64; Pulse 79; Resp 18; Temp 98.7(O); Pulse Ox 100% on R/A; Weight 83.01 kg; ld1 Height 5 ft. 7 in. (170.18 cm); Pain 0/10; 11:44 Body Mass Index 28.66 (83.01 kg, 170.18 cm) ld1 ED Course: 11:20 Patient arrived in ED. rg4 11:22 Tani Mackenzie PA is PHCP. ailyn 11:22 Lisandro Bentley MD is Attending Physician. [facility] 11:44 Arm band placed on right wrist. ld1 11:45 Triage completed. ld1 11:52 COVID-19 SARS RT PCR (Document "Date of Onset" if Symptomatic) Sent. ld1 11:52 Flu Sent. ld1 11:52 Strep Sent. ld1 13:[address], FARIDEH is Primary Nurse. ld1 13:30 Patient has correct armband on for positive identification. Placed in gown. Bed in low ld1 position. Call light in reach. Side rails up X2. Pulse ox on. NIBP on. Door closed. Noise minimized. Warm blanket given. 13:30 No provider procedures requiring assistance completed. Patient did not have IV access ld1 during this emergency room visit. Administered Medications: No medications were administered Medication: 13:30 VIS not applicable for this client. ld1 Outcome: 13:21 Discharge ordered by . ailyn 13:30 Discharged to home ambulatory. ld1 13:30 Condition: stable 13:30 Discharge instructions given to patient, Instructed on discharge instructions, follow up and referral plans. medication usage, Demonstrated understanding of instructions, follow-up care, medications. 13:31 Patient left the ED. ld1 Signatures: Tani Mackenzie PA PA jmm Garcia, Rubi rg4 Nadiya St, RN RN ld1
--- NOTE | 2022-06-20 13:22 | EDPHYS ---
Physician Documentation [facility] Name: Natan Johnson Age: 62 yrs Sex: Male : 1960 Arrival Date: 06/20/2022 Time: 11:20 Bed IW2 Private MD: ROMAN Physician Lisandro Bentley HPI: 06/20 11:47 This 62 yrs old Male presents to ER via Ambulatory with complaints of Sore jmm Throat, Cough. 11:47 The patient presents with sore throat. Onset: The symptoms/episode began/occurred jmm gradually, 2 day(s) ago. Modifying factors: The symptoms are alleviated by nothing, the symptoms are aggravated by nothing, Patient's oral intake status: good. Associated signs and symptoms: Pertinent positives: fever. The patient has experienced similar episodes in the past. Historical: - Allergies: 11:44 No Known Allergies; ld1 - PMHx: 11:44 CVA; Diabetes - NIDDM; Hypertension; ld1 - PSHx: 11:44 None; ld1 - Immunization history:: Adult Immunizations up to date, Client reports receiving the 2nd dose of the Covid vaccine. - Social history:: Smoking status: Patient reports the use of cigarette tobacco products, smokes one-half pack cigarettes per day, Patient/guardian denies using alcohol. ROS: 11:47 Constitutional: Positive for body aches, fever. jmm 11:47 ENT: Positive for sore throat. 11:47 Respiratory: Positive for cough. 11:47 All other systems are negative. Exam: 11:47 Head/Face: atraumatic. Eyes: EOMI, no conjunctival erythema appreciated jmm 11:47 Neck: Trachea midline, Supple Chest/axilla: Normal chest wall appearance and motion. Cardiovascular: Regular rate and rhythm. No edema appreciated Respiratory: Normal respirations, no respiratory distress appreciated Abdomen/GI: Non distended Back: Normal ROM Skin: General appearance color normal MS/ Extremity: Moves all extremities, no obvious deformities appreciated, no edema noted to the lower extremities Neuro: Awake and alert Psych: Behavior is normal, Mood is normal, Patient is cooperative and pleasant 11:47 Constitutional: The patient appears in no acute distress, alert, awake. 11:47 ENT: Posterior pharynx: erythema, that is moderate. Vital Signs: 11:44 BP 101 / 64; Pulse 79; Resp 18; Temp 98.7(O); Pulse Ox 100% on R/A; Weight 83.01 kg; ld1 Height 5 ft. 7 in. (170.18 cm); Pain 0/10; 11:44 Body Mass Index 28.66 (83.01 kg, 170.18 cm) ld1 MDM: 12:30 Patient medically screened. [facility] 13:20 Data reviewed: vital signs, nurses notes. Counseling: I had a detailed discussion with ailyn the patient and/or guardian regarding: the historical points, exam findings, and any diagnostic results supporting the discharge/admit diagnosis, lab results, the need for outpatient follow up, to return to the emergency department if symptoms worsen or persist or if there are any questions or concerns that arise at home. 06/20 11:46 Order name: Strep; Complete Time: 12:56 ld1 06/20 11:46 Order name: Flu; Complete Time: 12:56 ld1 06/20 11:46 Order name: COVID-19 SARS RT PCR (Document "Date of Onset" if Symptomatic); Complete ld1 Time: 12:56 06/20 12:25 Order name: Throat Culture EDMS Administered Medications: No medications were administered Disposition Summary: 06/20/22 13:21 Discharge Ordered Location: Home [facility] Condition: Stable [facility] Diagnosis - Influenza [facility] Followup: [facility] - With: Private Physician - When: 2 - 3 days - Reason: Recheck today's complaints, Continuance of care, Re-evaluation by your physician Discharge Instructions: - Discharge Summary Sheet [facility] - Influenza, Adult [facility] Forms: - Medication Reconciliation Form [facility] - Thank You Letter [facility] - Antibiotic Education [facility] - Prescription Opioid Use [facility] Prescriptions: - Tamiflu 75 mg Oral Capsule - take 1 tablet by ORAL route every 12 hours for 5 days; 10 tablet; Refills: 0, [facility] Product Selection Permitted Signatures: Dispatcher [employer] EDLisandro Fontanez MD MD cha Mickail, Joel, PA PA jmm Dibbern, Lauren, RN RN ld1
[2022-06-20 13:40] VITALS: BP 101/64; TEMP 98.7; O2SAT 100
== END 2022-06-20 13:31 | disposition home or self-care (01) ==
LOC: ER 11:15
DX: J11.1 Influenza due to unidentified influenza virus with other respiratory manifestations (principal); Z20.822 Contact with and (suspected) exposure to COVID-19
CPT/HCPCS: 87070; 87081; 87804 ×2; 99283; U0003

== ENCOUNTER 2024-05-08 12:30 | Emergency (ER) | payer OTHER ==
[2024-05-08] MEDS ORDERED: NA CHLORIDE 0.9% 1,000 ML ONE (13:04)
[2024-05-08] MEDS ORDERED: FAMOTIDINE 20 MG/2 ML VIAL IV ONE (13:04)
[2024-05-08 13:11] LABS: Absolute Lymphocytes (CBC) 1.3 K/uL (0.7-4.9); Absolute Monocytes 0.4 K/uL (0.1-1.3); Absolute Neutrophil 2.5 K/uL (1.8-8.0); Basophils % 0.8 % (0-1.3); Eosinophils % 0.4 % (0-4.4); Hematocrit 45.8 % (39.6-49.0); Hemoglobin 15.7 g/dL (13.6-17.9); Lymphocytes % 29.3 % (15.3-44.8); MCH 30.6 pg (27.0-35.0); MCHC 34.3 g/dL (32.0-36.0); MCV 89.3 fL (80-100); MPV 9.8 fL (7.6-11.3); Monocytes % 10.1 % (3.3-12.3); Neutrophils % 59.4 % (41.7-73.7); Nucleated Red Blood Cells % 0.1 % (0-0); Platelets 85 thou/uL (152-406); RBC Red Blood Cell Count 5.12 M/uL (4.33-5.43); Red Cell Distribution Width 13.7 % (12.1-15.2)
[2024-05-08 13:12] LABS: PT Prothrombin Time 10.2 SECONDS (9.4-12.5); Protime INR 0.91
[2024-05-08 13:45] LABS: ALT/SGPT 72 U/L (16-61); AST/SGOT 41 U/L (15-37); Albumin 3.3 g/dL (3.4-5.0); Albumin/Globulin Ratio 0.8 (1.1-1.8); Alkaline Phosphatase 117 U/L (45-117); Anion Gap 14.5 mEq/L (5.0-15.0); BUN Blood Urea Nitrogen 35 mg/dL (7-18); Bicarbonate 21 mEq/L (21-32); Bilirubin Direct < 0.2 mg/dL (0-0.2); Bilirubin Indirect, Calculated 0.2 mg/dL (0.2-0.8); Bilirubin Total 0.4 mg/dL (0.2-1.0); Globulin 3.9 g/dL (2.3-3.5); Glomerular Filtration Rate 51 ml/min (=/>90); Glucose Level 294 mg/dL (74-106); Lipase 133 U/L (13-75); Magnesium 2.3 mg/dL (1.6-2.4); NT PRO-BNP 33 pg/mL (<125); Potassium 3.5 mEq/L (3.5-5.1); Protein, Total 7.2 g/dL (6.4-8.2); Sodium Level 134 mEq/L (136-145); Troponin High Sensitivity 11.5 pg/mL (<58.9)
[2024-05-08 13:47] LABS: Sqamous Epithelial <5 /HPF (None Seen); Urine Bacteria None Seen /HPF (<20); Urine Bilirubin NEGATIVE (Negative); Urine Blood Negative (Negative); Urine Clarity Clear (Clear); Urine Color Light-Yellow (Yellow); Urine Culture Reflex Order NOT NEEDED; Urine Glucose 4+ (Over) (Negative); Urine Ketones NEGATIVE (Negative); Urine Micro Reflex YN NO BILL MICROSCOPIC; Urine Mucus Slight /HPF (None Seen); Urine Nitrite NEGATIVE (Negative); Urine Protein NEGATIVE (Negative); Urine RBC None Seen /HPF (None Seen); Urine Urobilinogen Normal (Normal); Urine WBC <5 /HPF (<5); Urine pH 5.5 (5.0-7.0)
[2024-05-08 13:58] LABS: Barbiturates NEGATIVE (NEGATIVE); Benzodiazepines NEGATIVE (NEGATIVE); Cocaine NEGATIVE (NEGATIVE); METHAMPHETAM NEGATIVE (NEGATIVE); Methadone NEGATIVE (NEGATIVE); Opiates NEGATIVE (NEGATIVE); Phencyclidine NEGATIVE (NEGATIVE); THC Cannibis NEGATIVE (NEGATIVE)
--- NOTE | 2024-05-08 16:36 | RAD REPORT ---
EXAM DESCRIPTION: CT - Abdomen Pelvis W Contrast - 05/08/2024 3:40 pm CLINICAL HISTORY: Abdominal pain COMPARISON: 2019 TECHNIQUE: Computed axial tomography of the abdomen pelvis was obtained. 100 cc Isovue-300 was admin istered intravenously. Oral contrast was not requested which limits evaluation of bowel and appendix All CT scans are performed using dose optimization technique as appropriate and may include automated exposure control or mA/KV adjustment according to patient size. FINDINGS: Fatty liver 23 millimeter fatty mass is present within pancreatic neck. Hounsfield unit -53. It contains internal septa.. On the prior exam measured 21 millimeters. Spleen, adrenals and left kidney unremarkable 2.9 centimeters cystic mass right kidney with a mildly thickened wall unchanged from the prior exam l ikely benign. Normal appendix. Prostate gland mildly to moderately enlarged. There is no evidence of diverticulitis. IMPRESSION: 23 millimeter fatty lesion within the pancreas minimally enlarged from December 2018 exam lik peggy a lipoma. However, given the slight enlargement and internal septa it is recommended that the pat ient have a followup MRI in 1 year for re-evaluation.
--- NOTE | 2024-05-08 16:53 | ER ---
Nurse's Notes [facility] Name: Natan Johnson Age: 64 yrs Sex: Male : 1960 Arrival Date: 05/08/2024 Time: 12:30 Bed 6 Private MD: Diagnosis: Upper abdominal pain, unspecified;Pancreatic lipoma Presentation: 05/08 12:38 Chief complaint: Patient states: Epigastric abdominal pain that radiates to back onset cm10 1 week ago. Pt reports diarrhea and bleeding from his penis. Coronavirus screen: Client denies travel out of the [place] in the last 14 days. At this time, the client does not indicate any symptoms associated with coronavirus-19. Ebola Screen: Patient denies travel to an Ebola-affected area in the 21 days before illness onset. No symptoms or risks identified at this time. Initial Sepsis Screen: Does the patient meet any 2 criteria? No. Patient's initial sepsis screen is negative. Does the patient have a suspected source of infection? No. Patient's initial sepsis screen is negative. Risk Assessment: Do you want to hurt yourself or someone else? Patient reports no desire to harm self or others. Onset of symptoms was May 08, 2024. 12:38 Method Of Arrival: Ambulatory cm10 12:38 Acuity: JEB 3 cm10 Triage Assessment: 12:39 General: Appears in no apparent distress. comfortable, Behavior is calm, cooperative. cm10 Neuro: No deficits noted. Level of Consciousness is awake, alert, obeys commands, Oriented to person, place, time, situation, Appropriate for age. Respiratory: No deficits noted. Airway is patent Respiratory effort is even, unlabored, Respiratory pattern is regular, symmetrical. Historical: - Allergies: 12:39 No Known Allergies; cm10 - PMHx: 12:39 CVA; Diabetes - NIDDM; Hypertension; cm10 - PSHx: 12:39 Cardiac Stents; cm10 - Immunization history:: Adult Immunizations up to date. - Infectious Disease History:: Denies. - Social history:: Smoking status: Patient reports the use of cigarette tobacco products, smokes one pack cigarettes per day. Screenin:55 [facility] ED Fall Risk Assessment (Adult) History of falling in the last 3 months, ko1 including since admission No falls in past 3 months (0 pts) Confusion or Disorientation No (0 pts) Intoxicated or Sedated Yes (3 pts) Impaired Gait No (0 pts) Mobility Assist Device Used No (0 pt) Altered Elimination No (0 pt) Score/Fall Risk Level 0 - 2 = Low Risk Oriented to surroundings, Maintained a safe environment, Educated pt \T\ family on fall prevention, incl call for assistance when getting out of bed, Assessed \T\ reinforced patient's understanding of fall precautions, Provided non-skid footwear, Hourly rounding (assess needs \T\ fall precautionary measures) done. Abuse screen: Denies threats or abuse. Denies injuries from another. Nutritional screening: No deficits noted. Tuberculosis screening: No symptoms or risk factors identified. Assessment: 12:55 General: Appears in no apparent distress. Behavior is calm, cooperative, appropriate ko1 for age. Pain: Complains of pain in epigastric area Pain does not radiate. Pain began gradually. Neuro: No deficits noted. Neuro: Blue Agitation-Sedation Scale (RASS): 0 - Alert and Calm Level of Consciousness is awake, alert, obeys commands, Oriented to person, place, time, situation, Appropriate for age. Cardiovascular: No deficits noted. Respiratory: No deficits noted. GI: Reports upper abdominal pain. : No deficits noted. EENT: No deficits noted. Derm: No deficits noted. Musculoskeletal: Reports pain in back. 16:50 Reassessment: SUMAN August at bedside discussing results and POC. jl7 Vital Signs: 12:38 BP 134 / 70; Pulse 72; Resp 16; Temp 97.6(IR); Pulse Ox 100% on R/A; Weight 83.91 kg; cm10 Height 5 ft. 7 in. ; Pain 8/10; 12:55 BP 110 / 63; Pulse 63; Resp 16; Pulse Ox 99% ; ko1 14:32 BP 110 / 65; Pulse 60; Resp 16; Pulse Ox 99% ; ko1 17:03 BP 126 / 59; Pulse 61; Resp 16; Pulse Ox 99% ; ko1 12:38 Body Mass Index 28.97 (83.91 kg, 170.18 cm) cm10 12:38 Pain Scale: Adult cm10 ED Course: 12:32 Patient arrived in ED. im 12:33 Marielena Jenkins PA-C is PHCP. sb4 12:33 Lisandro Bentley MD is Attending Physician. sb4 12:39 Triage completed. cm10 12:39 Arm band placed on Patient placed in an exam room, on a stretcher. cm10 12:49 Rosa Loya, RN is Primary Nurse. ko1 12:55 Patient has correct armband on for positive identification. Placed in gown. Bed in low ko1 position. Call light in reach. Side rails up X 1. Provided Education on: labs, meds. Client placed on continuous cardiac and pulse oximetry monitoring. NIBP monitoring applied. youth nutritional monitor on. Door closed. Noise minimized. Lights dimmed. Warm blanket given. Pillow given. 13:00 Initial lab(s) drawn, by me, sent to lab. Inserted saline lock: 20 gauge in right ko1 antecubital area, using aseptic technique. Blood collected. Flushed with 10 mL NS. 13:02 Lipase Sent. ko1 13:02 ETOH Level Sent. ko1 13:02 Basic Metabolic Panel Sent. ko1 13:02 CBC with Diff Sent. ko1 13:02 LFT's Sent. ko1 13:02 Magnesium Sent. ko1 13:02 NT PRO-BNP Sent. ko1 13:02 PT-INR Sent. ko1 13:02 Troponin HS Sent. ko1 15:42 CT Abd/Pelvis - IV Contrast Only In Process Unspecified. EDMS 15:42 No provider procedures requiring assistance completed. Patient maintains SpO2 ko1 saturation greater than 95% on room air. 16:49 Assisted provider with: Chaperoned SUMAN August during penile exam. jl7 16:51 Clyde Fang MD is Referral Physician. sb4 17:03 IV discontinued, intact, bleeding controlled, No redness/swelling at site. Pressure ko1 dressing applied. Administered Medications: 13:06 Drug: NS 0.9% IV 1000 ml IV at 1 bolus Per protocol; 1000 mL bolus Route: IV; Rate: 1 ko1 bolus; Site: right antecubital; 16:53 Follow up: Response: No adverse reaction; IV Status: Completed infusion; IV Intake: ko1 1000ml 13:06 Drug: Famotidine IVP 20 mg IVP once; dilute with 10 mL 0.9% NaCl; give over 2 minutes ko1 Route: IVP; Site: right antecubital; 13:21 Follow up: Response: No adverse reaction ko1 Medication: 12:55 VIS not applicable for this client. ko1 Intake: 16:53 IV: 1000ml; Total: 1000ml. ko1 Outcome: 16:52 Discharge ordered by . [email or web address] 17:03 Discharged to home ambulatory, ko1 17:03 Condition: stable 17:03 Discharge instructions given to patient, Instructed on discharge instructions, follow up and referral plans. medication usage, Demonstrated understanding of instructions, follow-up care, 17:09 Patient left the ED. ko1 Signatures: Dispatcher [employer] EDChely Hayes RN RN jl7 Rosa Loya RN RN ko1 Marielena Jenkins, PA-C PA-C [email or web address] Deb Masters Clarissa, RN RN cm10
--- NOTE | 2024-05-08 16:53 | EDPHYS ---
Physician Documentation [facility] Name: Natan Johnson Age: 64 yrs Sex: Male : 1960 Arrival Date: 05/08/2024 Time: 12:30 Bed 6 Private MD: ED Lisandro Magaña HPI: 05/08 12:45 This 64 yrs old Male presents to ER via Ambulatory with complaints of Back sb4 Pain, Epigastric Pain. 12:45 The patient presents with abdominal pain in the epigastric area. Onset: The sb4 symptoms/episode began/occurred 1 week(s) ago. The symptoms radiate to back. Associated signs and symptoms:. Associated signs and symptoms: Pertinent positives: nausea, vomiting, and diarrhea, hematuria. The patient has not experienced similar symptoms in the past. Historical: - Allergies: 12:39 No Known Allergies; cm10 - PMHx: 12:39 CVA; Diabetes - NIDDM; Hypertension; cm10 - PSHx: 12:39 Cardiac Stents; cm10 - Immunization history:: Adult Immunizations up to date. - Infectious Disease History:: Denies. - Social history:: Smoking status: Patient reports the use of cigarette tobacco products, smokes one pack cigarettes per day. ROS: 12:46 Cardiovascular: Negative for chest pain, palpitations, and edema, sb4 12:46 Abdomen/GI: Positive for abdominal pain, nausea, vomiting, and diarrhea, 12:46 : Positive for hematuria, penile discharge, 12:46 All other systems are negative, sb4 Exam: 12:46 Constitutional: This is a well developed, well nourished patient who is awake, alert, sb4 and in no acute distress. Head/Face: Normocephalic, atraumatic. Eyes: Extra-ocular motions intact. Periorbital areas with no swelling, redness, or edema. ENT: Mucous membranes moist. Cardiovascular: Regular rate and rhythm with a normal S1 and S2. Respiratory: Lungs have equal breath sounds bilaterally, clear to auscultation and percussion. No rales, rhonchi or wheezes noted. No increased work of breathing, no retractions or nasal flaring. Abdomen/GI: Soft, non-tender, no distension. Skin: Warm, dry with normal turgor. Normal color with no rashes, no lesions, and no evidence of cellulitis. Vital Signs: 12:38 BP 134 / 70; Pulse 72; Resp 16; Temp 97.6(IR); Pulse Ox 100% on R/A; Weight 83.91 kg; cm10 Height 5 ft. 7 in. ; Pain 8/10; 12:55 BP 110 / 63; Pulse 63; Resp 16; Pulse Ox 99% ; ko1 14:32 BP 110 / 65; Pulse 60; Resp 16; Pulse Ox 99% ; ko1 17:03 BP 126 / 59; Pulse 61; Resp 16; Pulse Ox 99% ; ko1 12:38 Body Mass Index 28.97 (83.91 kg, 170.18 cm) cm10 12:38 Pain Scale: Adult cm10 MDM: 12:37 Patient medically screened. sb4 16:50 Data reviewed: vital signs, nurses notes, lab test result(s), and as a result, I will sb4 discharge patient. External Records Reviewed: reviewed labs from January 2022, kidney function unchanged. Care significantly affected by the following chronic conditions: Diabetes, Hypertension. Counseling: I had a detailed discussion with the patient and/or guardian regarding the historical points, exam findings, and any diagnostic results supporting the discharge/admit diagnosis, lab results, radiology results, the need for outpatient follow up, a student development coordinator, to return to the emergency department if symptoms worsen or persist or if there are any questions or concerns that arise at home. 05/08 12:45 Order name: Basic Metabolic Panel; Complete Time: 13:46 sb4 05/08 12:45 Order name: CBC with Diff; Complete Time: 13:18 sb4 05/08 12:45 Order name: LFT's; Complete Time: 13:46 sb4 05/08 12:45 Order name: Magnesium; Complete Time: 13:46 sb4 05/08 12:45 Order name: NT PRO-BNP; Complete Time: 13:46 sb4 05/08 12:45 Order name: PT-INR; Complete Time: 13:18 sb4 05/08 12:45 Order name: Troponin HS; Complete Time: 13:46 sb4 05/08 12:45 Order name: UAM; Complete Time: 13:49 sb4 05/08 12:45 Order name: UDS; Complete Time: 13:58 sb4 05/08 12:45 Order name: ETOH Level; Complete Time: 13:31 sb4 05/08 12:45 Order name: Lipase; Complete Time: 13:46 sb4 05/08 13:46 Order name: CT Abd/Pelvis - IV Contrast Only; Complete Time: 16:36 sb4 05/08 12:45 Order name: EKG; Complete Time: 12:45 sb4 05/08 12:45 Order name: Cardiac monitoring; Complete Time: 13:02 sb4 05/08 12:45 Order name: EKG - Nurse/Tech; Complete Time: 13:19 sb4 05/08 12:45 Order name: IV Saline Lock; Complete Time: 13:02 sb4 05/08 12:45 Order name: Labs collected and sent; Complete Time: 13:02 sb4 05/08 12:45 Order name: O2 Per Protocol; Complete Time: 13:02 sb4 05/08 12:45 Order name: O2 Sat Monitoring; Complete Time: 13:02 sb4 EC:19 Rate is 66 beats/min. Rhythm is irregular, Sinus arrythmia. WI interval is normal at sb4 154 msec. QRS interval is normal at 94 msec. QT interval is normal at 438 msec. No Q waves. No ST changes noted. Clinical impression: Normal ECG and No evidence of ischemia. Interpreted by me. Reviewed by me. Administered Medications: 13:06 Drug: NS 0.9% IV 1000 ml IV at 1 bolus Per protocol; 1000 mL bolus Route: IV; Rate: 1 ko1 bolus; Site: right antecubital; 16:53 Follow up: Response: No adverse reaction; IV Status: Completed infusion; IV Intake: ko1 1000ml 13:06 Drug: Famotidine IVP 20 mg IVP once; dilute with 10 mL 0.9% NaCl; give over 2 minutes ko1 Route: IVP; Site: right antecubital; 13:21 Follow up: Response: No adverse reaction ko1 Disposition: 16:05 Co-signature as Attending Physician, Lisandro Bentley MD I agree with the assessment and kaiden plan of care. Disposition Summary: 05/08/24 16:52 Discharge Ordered Notes: Location: Home sb4 Problem: an ongoing problem sb4 Symptoms: have improved sb4 Condition: Stable sb4 Diagnosis - Upper abdominal pain, unspecified sb4 - Pancreatic lipoma sb4 Followup: sb4 - With: Clyde Fang MD - When: 1 week - Reason: Further diagnostic work-up, Recheck today's complaints, Re-evaluation by your physician Discharge Instructions: - Discharge Summary Sheet sb4 - Abdominal Pain, Adult sb4 - Fatty Liver Disease sb4 Forms: - Patient Portal Instructions sb4 - Leadership Thank You Letter sb4 Signatures: Dispatcher [employer] EDLisandro Fontanez MD MD cha Oliver, Kathy, RN RN ko1 Marielena Jenkins PAManuel PAManuel sb4 Alessia Boateng RN RN cm10 Corrections: (The following items were deleted from the chart) 12:45 12:45 BASIC METABOLIC PANEL+C.LAB.BRZ ordered. EDMS EDMS 12:45 12:45 CBC+H.LAB.BRZ ordered. EDMS EDMS 12:45 12:45 HEPATIC FUNCTION+C.LAB.BRZ ordered. EDMS EDMS 12:45 12:45 MAGNESIUM+C.LAB.BRZ ordered. EDMS EDMS 12:45 12:45 PROBNP+C.LAB.BRZ ordered. EDMS EDMS 12:45 12:45 PROTIME (+INR)+COAG.LAB.BRZ ordered. EDMS EDMS 12:45 12:45 Troponin High Sensitivity+C.LAB.BRZ ordered. EDMS EDMS 12:45 12:45 Urinalysis W/Microscopic+U.LAB.BRZ ordered. EDMS EDMS 12:45 12:45 URINE DRUG SCREEN+UC.LAB.BRZ ordered. EDMS EDMS 12:45 12:45 ETHANOL+C.LAB.BRZ ordered. EDMS EDMS 12:45 12:45 LIPASE+C.LAB.BRZ ordered. EDMS EDMS
[2024-05-08 17:32] VITALS: TEMP 97.6
[2024-05-08 17:33] VITALS: BP 126/59; O2SAT 99
--- NOTE | 2024-05-10 12:52 | EKG ---
Test Date: 2024-05-08 Test Time: 13:16:27 Master Control Technician: JOSE R MEASUREMENT RESULTS: Intervals: Rate: 66 SC: 154 QRSD: 94 QT: 438 QTc: 459 [place]: P: 61 SC: 154 QRS: -1 T: 83 INTERPRETIVE STATEMENTS: Sinus rhythm with marked sinus arrhythmia Nonspecific T wave abnormality Abnormal ECG Compared to ECG 02/21/2022 12:20:31 T-wave abnormality now present Atrial premature complex(es) no longer present Electronically Signed On 05-10-24 12:48:31 CDT by Cordell Landaverde
== END 2024-05-08 17:09 | disposition home or self-care (01) ==
LOC: ER 12:30
DX: R10.13 Epigastric pain (principal); K86.9 Disease of pancreas, unspecified; I10 Essential (primary) hypertension; E11.9 Type 2 diabetes mellitus without complications; F17.210 Nicotine dependence, cigarettes, uncomplicated; Z86.73 Personal history of transient ischemic attack (TIA), and cerebral infarction without residual deficits
CPT/HCPCS: 36415; 74177; 80048; 80076; 80307; 81001; 82077; 83690; 83735; 83880; 84484; 85025; 85610; 93005; 96361; 96374; 99285; J7030; Q9967

== ENCOUNTER 2024-07-31 09:45 | Emergency (ER) | payer OTHER ==
[2024-07-31] MEDS ORDERED: HYDROCODONE/APAP 10/325 TAB ONE (10:35)
[2024-07-31 11:07] LABS: Specific Gravity 1.022 (1.005-1.030); Sqamous Epithelial None Seen /HPF (None Seen); Urine Bacteria <20 /HPF (<20); Urine Bilirubin NEGATIVE (Negative); Urine Blood 3+ (OVER) (Negative); Urine Clarity Extremely Turbid (Clear); Urine Color Brown (Yellow); Urine Culture Reflex Order REFLEXED; Urine Glucose TRACE (Negative); Urine Ketones NEGATIVE (Negative); Urine Micro Reflex YN NO BILL MICROSCOPIC; Urine Mucus Slight /HPF (None Seen); Urine Nitrite NEGATIVE (Negative); Urine Protein 3+ (Negative); Urine RBC >50 /HPF (None Seen); Urine Urobilinogen Normal (Normal); Urine WBC >50 /HPF (<5); Urine WBC Clump Moderate /HPF (None Seen); Urine Yeast (Budding) Many /HPF (None Seen); Urine pH 6.5 (5.0-7.0)
--- NOTE | 2024-07-31 11:27 | ER ---
Nurse's Notes [facility] Name: Natan Johnson Age: 64 yrs Sex: Male : 1960 Arrival Date: 07/31/2024 Time: 09:45 Bed 8 Private MD: Diagnosis: Mechanical complication of urinary (indwelling) catheter;UTI/ Urinary tract infection, site not specified Presentation: 07/31 09:50 Chief complaint: EMS states: Urinary catheter placed one month ago, urine started rs5 draining outside catheter this morning, pt believe it might be clogged. Coronavirus screen: At this time, the client does not indicate any symptoms associated with coronavirus-19. Ebola Screen: No symptoms or risks identified at this time. Initial Sepsis Screen: Does the patient meet any 2 criteria? No. Patient's initial sepsis screen is negative. Does the patient have a suspected source of infection? No. Patient's initial sepsis screen is negative. Risk Assessment: Do you want to hurt yourself or someone else? Patient reports no desire to harm self or others. Onset of symptoms was July 31, 2024. 09:50 Method Of Arrival: EMS: [facility] rs5 09:50 Acuity: JEB 3 rs5 Triage Assessment: 09:59 General: Appears in no apparent distress. uncomfortable, Behavior is calm, cooperative. rs5 Pain: Complains of pain in lower abdomen Pain currently is 3 out of 10 on a pain scale. Quality of pain is described as aching. Historical: - Allergies: 09:59 No Known Allergies; rs5 - PMHx: 09:59 CVA; Diabetes - NIDDM; Hypertension; rs5 - PSHx: 09:59 cardiac stents; rs5 - Immunization history:: Adult Immunizations up to date. - Infectious Disease History:: Denies. - Social history:: Smoking status: Patient denies any tobacco usage or history of. Screenin:55 [facility] ED Fall Risk Assessment (Adult) History of falling in the last 3 months, rs5 including since admission No falls in past 3 months (0 pts) Confusion or Disorientation No (0 pts) Intoxicated or Sedated No (0 pts) Impaired Gait No (0 pts) Mobility Assist Device Used No (0 pt) Altered Elimination No (0 pt) Score/Fall Risk Level 0 - 2 = Low Risk Oriented to surroundings, Maintained a safe environment. Abuse screen: Denies threats or abuse. Nutritional screening: No deficits noted. Tuberculosis screening: No symptoms or risk factors identified. Assessment: 09:55 General: Appears in no apparent distress. uncomfortable, Behavior is calm, cooperative. rs5 Pain: Complains of pain in suprapubic area Pain currently is 3 out of 10 on a pain scale. Quality of pain is described as aching, Is continuous. Neuro: Level of Consciousness is awake, alert, obeys commands, Oriented to person, place, time, situation. Cardiovascular: Patient's skin is warm and dry. 09:55 Respiratory: Airway is patent Respiratory effort is even, unlabored, Respiratory rs5 pattern is regular, symmetrical. GI: Abdomen is round non-distended, Abd is soft and non tender X 4 quads. : 16 ff villa to gravity, dark mehnaz urine noted in catheter bag. EENT: No signs and/or symptoms were reported regarding the EENT system. Derm: Skin is intact, Skin is pink, warm \\T\\ dry. Musculoskeletal: Range of motion: intact in all extremities. 09:55 Reassessment: pt states "my urine catheter has been leaking since yesterday '. rs5 10:15 Reassessment: to bedside, villa discontinued per MD orders, 18 ff villa inserted by me rs5 and tech using aseptic technique, 300 ml cloudy mehnaz urine drained into urine bag. Pt states "this villa zhong, I think it's too big, take it out and put a 16 ff in" 18 ff folely removed by me, provider notified . 10:40 Reassessment: to bedside, 16 ff villa inserted by me and tech using aseptice technique, rs5 50 cc cloudy mehnaz urine collected and sent to lab, keo inflated pt tolerated procedure poorly, pt states "my penis zhong, can you give me something for pain" provider notified . 10:44 Pain: Complains of pain in suprapubic area Pain currently is 8 out of 10 on a pain rs5 scale. Quality of pain is described as aching, Is continuous. 11:01 Reassessment: 100 cc cloudy urine noted in urine bag, to gravity. rs5 12:00 Reassessment: Patient and/or family updated on plan of care and expected duration. Pain rs5 level reassessed. Patient is alert, oriented x 3, equal unlabored respirations, skin warm/dry/pink. Vital Signs: 09:50 BP 158 / 81; Pulse 74; Resp 17; Temp 98(O); Pulse Ox 99% ; rs5 11:55 BP 142 / 77; Pulse 77; Resp 17; Pulse Ox 99% on R/A; rs5 ED Course: 09:50 Patient arrived in ED. rs5 09:54 Lisandro Jeffers PA is PHCP. cp 09:55 Brent Brian MD is Attending Physician. cp 09:55 Patient has correct armband on for positive identification. Placed in gown. Bed in low rs5 position. Call light in reach. Side rails up X2. 09:55 No provider procedures requiring assistance completed. rs5 09:59 Triage completed. rs5 10:00 Arm band placed on right wrist. rs5 10:34 Naeem Perez, FARIDEH is Primary Nurse. rs5 12:00 Provided Education on: discharge instructions . rs5 12:05 Patient did not have IV access during this emergency room visit. rs5 Administered Medications: 10:44 Drug: HYDROcodone-acetaminophen PO 10 mg-325 mg 1 tabs PO once Route: PO; rs5 11:30 Follow up: Response: No adverse reaction; Pain is decreased rs5 11:50 Drug: LevOfloxacin PO 500 mg PO once Route: PO; rs5 11:50 Drug: Rocephin (cefTRIAXone) IM 1 grams IM once Route: IM; Site: left ventrogluteal; rs5 Medication: 11:00 VIS not applicable for this client. rs5 Outcome: 11:26 Discharge ordered by . cp 12:05 Discharged to home via wheelchair, with family, rs5 12:05 Condition: stable rs5 12:05 Discharge instructions given to patient, family, Instructed on discharge instructions, follow up and referral plans. medication usage, Demonstrated understanding of instructions, follow-up care, medications, Prescriptions given X 1, 12:09 Patient left the ED. rs5 Signatures: Lisandro Jeffers PA PA cp Sotelo, Ricky, RN RN rs5 Corrections: (The following items were deleted from the chart) 12:04 11:50 Rocephin (cefTRIAXone) IM 1 grams IM in left deltoid rs5 rs5 12:09 10:40 Reassessment: to bedside, 16 ff villa inserted by me and tech using aseptice rs5 technique, 50 cc cloudy mehnaz urine collected and sent to lab, ballon inflated pt tolerated procedure well. rs5
--- NOTE | 2024-07-31 11:27 | EDPHYS ---
Physician Documentation [facility] Name: Natan Johnson Age: 64 yrs Sex: Male : 1960 Arrival Date: 07/31/2024 Time: 09:45 Bed 8 Private MD: ED Physician Brent Brian HPI: 07/31 09:55 This 64 yrs old Male presents to ER via Unassigned with complaints of Problem cp With Urinary Catheter. 09:55 The patient presents with a Villa catheter problem, is not draining, is leaking urine, cp tenderness, that is moderate, of the suprapubic area. Onset: The symptoms/episode began/occurred this morning. Associated signs and symptoms: Pertinent negatives: constipation, diarrhea, fever, vomiting. Historical: - Allergies: 09:59 No Known Allergies; rs5 - PMHx: 09:59 CVA; Diabetes - NIDDM; Hypertension; rs5 - PSHx: 09:59 cardiac stents; rs5 - Immunization history:: Adult Immunizations up to date. - Infectious Disease History:: Denies. - Social history:: Smoking status: Patient denies any tobacco usage or history of. ROS: 09:56 Constitutional: History per HPI cp Exam: 10:00 Constitutional: The patient appears in no acute distress, alert, awake, comfortable, cp non-toxic, well developed, well nourished, 10:00 Head/Face: Normocephalic, atraumatic. cp 10:00 Eyes: Periorbital structures: appear normal, Conjunctiva: normal, no exudate, no injection, Sclera: no appreciated abnormality, Lids and lashes: appear normal, bilaterally, 10:00 ENT: External ear(s): are unremarkable, Nose: is normal, Mouth: Lips: moist, Oral mucosa: moist, Posterior pharynx: Airway: no evidence of obstruction, patent, 10:00 Chest/axilla: Inspection: normal, 10:00 Cardiovascular: Rate: normal, Rhythm: regular, 10:00 Respiratory: the patient does not display signs of respiratory distress, Respirations: normal, no use of accessory muscles, no retractions, labored breathing, is not present, Breath sounds: are clear throughout, no decreased breath sounds, no stridor, no wheezing, 10:00 Abdomen/GI: Inspection: scar(s), mid line appears well-healing with no redness and/or dehiscence, Bowel sounds: active, all quadrants, Palpation: soft, mild abdominal tenderness, in the suprapubic area, rebound tenderness, is not appreciated, involuntary guarding, is not appreciated, 10:00 Neuro: Orientation: to person, place \T\ time. Mentation: is normal, Vital Signs: 09:50 BP 158 / 81; Pulse 74; Resp 17; Temp 98(O); Pulse Ox 99% ; rs5 11:55 BP 142 / 77; Pulse 77; Resp 17; Pulse Ox 99% on R/A; rs5 MDM: 11:00 Differential diagnosis: UTI, urinary retention, Villa catheter problem, prostatitis, cp urethritis. 11:25 Data reviewed: vital signs, nurses notes, lab test result(s), and as a result, I will cp discharge patient. 11:25 I considered the following discharge prescriptions or medication management in the emergency department Medications were administered in the Emergency Department. See MAR. Care significantly affected by the following chronic conditions: Diabetes, Hypertension. Counseling: I had a detailed discussion with the patient and/or guardian regarding the historical points, exam findings, and any diagnostic results supporting the discharge/admit diagnosis, lab results, the need for outpatient follow up, a family practitioner, to return to the emergency department if symptoms worsen or persist or if there are any questions or concerns that arise at home. Response to treatment: the patient's symptoms have mildly improved after treatment, and as a result, I will discharge patient. 11:26 Medical Screening Exam initiated 07/31 09:55 Order name: Urinalysis W/Microscopic; Complete Time: 11:16 07/31 11:17 Interpretation: Reviewed. 07/31 11:11 Order name: Urine Culture EDGA 07/31 09:55 Order name: Villa: replace villa; Complete Time: 10:44 Administered Medications: 10:44 Drug: HYDROcodone-acetaminophen PO 10 mg-325 mg 1 tabs PO once Route: PO; rs5 11:30 Follow up: Response: No adverse reaction; Pain is decreased rs5 11:50 Drug: LevOfloxacin PO 500 mg PO once Route: PO; rs5 11:50 Drug: Rocephin (cefTRIAXone) IM 1 grams IM once Route: IM; Site: left ventrogluteal; rs5 Disposition: 19:37 Co-signature as Attending Physician, Brent Brian MD I reviewed the patient's care rn provided by the Advanced Practice Provider and agree with the diagnosis and treatment plan. Disposition Summary: 07/31/24 11:26 Discharge Ordered Notes: Location: Home cp Problem: new cp Symptoms: have improved cp Condition: Stable cp Diagnosis - Mechanical complication of urinary (indwelling) catheter cp - UTI/ Urinary tract infection, site not specified cp Followup: cp - With: Private Physician - When: 1 week - Reason: Recheck today's complaints Discharge Instructions: - Discharge Summary Sheet cp - Indwelling Urinary Catheter Care, Adult cp - Urinary Tract Infection, Adult cp Forms: - Medication Reconciliation Form cp - Antibiotic Education cp - Prescription Opioid Use cp - Patient Portal Instructions cp - Leadership Thank You Letter cp Prescriptions: - Pyridium 200 mg Oral tablet - take 1 tablet ORAL route every 8 hours for 2 days; 6 tablet; Refills: 0, cp Product Selection Permitted - cefpodoxime 200 mg Oral tablet - take 1 tablet ORAL route every 12 hours for 7 days with food; 14 tablet; cp Refills: 0, Product Selection Permitted Signatures: Dispatcher [employer] Brent Guadalupe MD MD rn Page, Corey, PA PA cp Naeem Perez, RN RN rs5
[2024-07-31] MEDS ORDERED: CEFTRIAXONE 1000 MG/VIAL ONE (11:51)
[2024-07-31] MEDS ORDERED: levoFLOXacin 250 MG TAB ONE (11:51)
[2024-07-31] MEDS ORDERED: LIDOCAINE 1% MPF 5 ML VIAL ONE (11:51)
[2024-07-31 12:13] VITALS: BP 158/81; TEMP 98; O2SAT 99
== END 2024-07-31 12:09 | disposition home or self-care (01) ==
LOC: ER 09:45
DX: T83.038A Leakage of other urinary catheter, initial encounter (principal); N39.0 Urinary tract infection, site not specified
CPT/HCPCS: 87088; 81001; 87086; 96372; 99284; J2003; J0696

== ENCOUNTER 2025-04-17 12:16 | Emergency (ER) | payer OTHER ==
[2025-04-17] MEDS ORDERED: KETOROLAC 30 MG/ML INJ ONE (12:57)
[2025-04-17] MEDS ORDERED: ONDANSETRON 4 MG/2 ML VIAL ONE (12:57)
[2025-04-17 13:06] LABS: Absolute Lymphocytes (CBC) 1.5 K/uL (0.7-4.9); Hematocrit 39.5 % (39.6-49.0); Hemoglobin 13.7 g/dL (13.6-17.9); MCH 29.7 pg (27.0-35.0); MCHC 34.7 g/dL (32.0-36.0); MCV 85.6 fL (80-100); MPV 8.4 fL (7.6-11.3); Nucleated RBC Absolute Count 0.0 (0-0); Nucleated Red Blood Cells % 0.1 % (0-0); RBC Red Blood Cell Count 4.61 M/uL (4.33-5.43); White Blood Count 8.40 thou/uL (4.3-10.9)
[2025-04-17 13:23] LABS: Influenza A Ag Negative; Influenza B Ag Negative; SARS-CoV-2 Antigen Rapid Res Negative (Negative)
[2025-04-17 13:38] LABS: Anion Gap 9.7 mEq/L (5.0-15.0); BUN Blood Urea Nitrogen 18.0 mg/dL (7-18); Glucose Level 233.0 mg/dL (74-106); Potassium 3.7 mEq/L (3.5-5.1); Troponin High Sensitivity 3.9 pg/mL (<58.9)
--- NOTE | 2025-04-17 13:41 | RAD REPORT ---
Procedure: Chest Single View HISTORY: Cough COMPARISON: 2021 FINDINGS: The lungs appear clear of acute infiltrate. No significant pleural effusion noted. The heart is normal size. Mild chronic elevation right hemidiaphragm IMPRESSION: No acute abnormality is displayed.
[2025-04-17] MEDS ORDERED: NA CHLORIDE 0.9% 1,000 ML ONE (13:59)
--- NOTE | 2025-04-17 15:16 | ER ---
Nurse's Notes [facility] Name: Natan Johnson Age: 65 yrs Sex: Male : 1960 Arrival Date: 04/17/2025 Time: 12:16 Bed 19 Private MD: Diagnosis: Viral infection, unspecified Presentation: 04/17 12:25 Chief complaint: Patient states: chest congestion, cough, Headache, diarrhea, started iw Friday , no fever. Coronavirus screen: Client presents with at least one sign or symptom that may indicate coronavirus-19. Risk Assessment: Do you want to hurt yourself or someone else? Patient reports no desire to harm self or others. Onset of symptoms was April 15, 2025. 12:25 Method Of Arrival: Ambulatory iw 12:26 Initial Sepsis Screen: Does the patient meet any 2 criteria? No. Patient's initial iw sepsis screen is negative. Does the patient have a suspected source of infection? No. Patient's initial sepsis screen is negative. 12:27 Ebola Screen: No symptoms or risks identified at this time. iw 12:27 Acuity: JEB 3 iw Historical: - Allergies: 12:26 No Known Allergies; iw - PMHx: 12:26 Diabetes - NIDDM; Hernia; Hypertension; CVA; iw - PSHx: 12:26 abdominal sx; cardiac stents; iw - Immunization history:: Adult Immunizations up to date. - Infectious Disease History:: Denies. - Social history:: Smoking status: Patient reports the use of cigarette tobacco products, smokes one pack cigarettes per day. Screenin:00 [facility] ED Fall Risk Assessment (Adult) History of falling in the last 3 months, ph including since admission No falls in past 3 months (0 pts) Confusion or Disorientation No (0 pts) Intoxicated or Sedated No (0 pts) Impaired Gait No (0 pts) Mobility Assist Device Used No (0 pt) Altered Elimination No (0 pt) Score/Fall Risk Level 0 - 2 = Low Risk Oriented to surroundings, Maintained a safe environment, Hourly rounding (assess needs \T\ fall precautionary measures) done. Abuse screen: Denies threats or abuse. Denies injuries from another. Nutritional screening: No deficits noted. Tuberculosis screening: No symptoms or risk factors identified. Assessment: 12:59 General: Appears in no apparent distress. comfortable, Behavior is calm, cooperative, ph appropriate for age, Denies fever. Pain: Complains of pain in headache. Neuro: Level of Consciousness is awake, alert, obeys commands, Oriented to person, place, time, situation, Reports headache weakness. Cardiovascular: Capillary refill < 3 seconds in bilateral fingers Patient's skin is warm and dry. Respiratory: Reports cough that is Airway is patent Respiratory effort is even, unlabored, Respiratory pattern is regular, symmetrical. GI: Reports diarrhea, nausea, Patient currently denies abdominal pain. Derm: Skin is pink, warm \T\ dry. 14:38 Reassessment: Patient appears in no apparent distress at this time. Patient and/or ph family updated on plan of care and expected duration. Pain level reassessed. Patient is alert, oriented x 3, equal unlabored respirations, skin warm/dry/pink. Vital Signs: 12:27 BP 122 / 65; Pulse 86; Resp 19; Temp 99.3(O); Pulse Ox 97% on R/A; Weight 83.91 kg; iw Height 5 ft. 7 in. ; Pain 7/10; 14:38 BP 114 / 65; Pulse 59; Resp 18; Pulse Ox 96% on R/A; ph 15:25 BP 132 / 68; Pulse 59; Resp 18; Temp 97.9; Pulse Ox 98% on R/A; ph 12:27 Body Mass Index 28.97 (83.91 kg, 170.18 cm) iw 12:27 Pain Scale: Adult iw ED Course: 12:19 Patient arrived in ED. ts1 12:19 Law Rubi F[facility]-C [facility] dr5 12:19 Brent Biran MD is Attending Physician. dr5 12:28 Triage completed. iw 12:28 Arm band placed on. iw 12:33 Sera Pena, FARIDEH is Primary Nurse. ph 12:58 Initial lab(s) drawn, by me, sent to lab. COVID swab sent to lab. Flu and/or RSV swab ph sent to lab. Inserted saline lock: 20 gauge in right antecubital area, using aseptic technique. Blood collected. Flushed with 10 mL NS. 13:01 Patient has correct armband on for positive identification. Bed in low position. Call ph light in reach. Side rails up X 1. Pulse ox on. NIBP on. Door closed. Noise minimized. 13:12 EKG done, by ED staff, reviewed by Law MAN. ph 13:36 XRAY Chest (1 view) In Process Unspecified. EDMS 14:38 No provider procedures requiring assistance completed. ph 15:26 IV discontinued, intact, bleeding controlled, No redness/swelling at site. Pressure ph dressing applied. Administered Medications: 13:11 Drug: Ketorolac IVP 15 mg IVP once Route: IVP; Site: right antecubital; ph 14:03 Follow up: Response: No adverse reaction ph 13:11 Drug: Ondansetron IVP 4 mg IVP once; over 2 minutes Route: IVP; Site: right antecubital;ph 14:03 Follow up: Response: No adverse reaction ph 14:02 Drug: NS 0.9% IV 1000 ml IV at 1000 ml once; to be given as a bolus over 60 minutes ph Route: IV; Rate: 1000 ml; Site: right antecubital; 15:25 Follow up: Response: No adverse reaction; IV Status: Completed infusion; IV Intake: ph 1000ml Medication: 13:00 VIS not applicable for this client. ph Intake: 15:25 IV: 1000ml; Total: 1000ml. ph Outcome: 15:15 Discharge ordered by MD. dr5 15:26 Discharged to home ambulatory, ph 15:26 Condition: good 15:26 Discharge instructions given to patient, Instructed on discharge instructions, follow up and referral plans. Demonstrated understanding of instructions, follow-up care, Prescriptions given X 2, 15:28 Patient left the ED. ph Signatures: Dispatcher [employer] EDMS Estrella Hall RN RN iw Sera Pena RN RN Taina Matthews, MARTHA PAS ts1 Law Rubi, LISSY-C MATERIALS AND PROCESSES MANAGER-Cdr5 Corrections: (The following items were deleted from the chart) 12:29 12:27 Resp 19bpm; Pulse Ox 97% RA; 83.91 kg; Height 5 ft. 7 in.; BMI: 28.9; Pain 7/10, iw Adult; iw 12:30 12:27 BP 122 / 65; Resp 19bpm; Pulse Ox 97% RA; 83.91 kg; Height 5 ft. 7 in.; BMI: iw 28.9; Pain 7/10, Adult; iw
--- NOTE | 2025-04-17 15:16 | EDPHYS ---
Physician Documentation [facility] Name: Natan Johnson Age: 65 yrs Sex: Male : 1960 Arrival Date: 04/17/2025 Time: 12:16 Bed 19 Private MD: ED Physician Brent Brian HPI: 04/17 13:33 This 65 yrs old Male presents to ER via Ambulatory with complaints of Cough, dr5 Chest Congestion, General Weakness. 13:33 The patient or guardian reports cough, that is intermittent, flu symptoms, myalgias. dr5 Onset: The symptoms/episode began/occurred 2 day(s) ago. Patient is a 65-year-old male with history of diabetes, hypertension, stroke coming in with generalized weakness, cough, congestion, and generalized bodyaches has been going on for 2 days. Patient denies any sick contacts. Patient reports that he has been taking his insulin and metformin with blood sugars in the 150s. Patient denies fever, abdominal pain, chest pain, shortness of breath, nausea, vomiting, constipation. Historical: - Allergies: 12:26 No Known Allergies; iw - PMHx: 12:26 Diabetes - NIDDM; Hernia; Hypertension; CVA; iw - PSHx: 12:26 abdominal sx; cardiac stents; iw - Immunization history:: Adult Immunizations up to date. - Infectious Disease History:: Denies. - Social history:: Smoking status: Patient reports the use of cigarette tobacco products, smokes one pack cigarettes per day. ROS: 13:33 Constitutional: as per hpi dr5 Exam: 13:33 Constitutional: This is a well developed, well nourished patient who is awake, alert, dr5 and in no acute distress. Head/Face: Normocephalic, atraumatic. Eyes: Pupils equal round and reactive to light, extra-ocular motions intact. Lids and lashes normal. Conjunctiva and sclera are non-icteric and not injected. Cornea within normal limits. Periorbital areas with no swelling, redness, or edema. Neck: Trachea midline, no thyromegaly or masses palpated, and no cervical lymphadenopathy. Supple, full range of motion without nuchal rigidity, or vertebral point tenderness. No Meningismus. Chest/axilla: Normal chest wall appearance and motion. Nontender with no deformity. No lesions are appreciated. Cardiovascular: Regular rate and rhythm with a normal S1 and S2. Normal PMI, no JVD. No pulse deficits. Respiratory: Lungs have equal breath sounds bilaterally, clear to auscultation. No rales, rhonchi or wheezes noted. No increased work of breathing, no retractions or nasal flaring. Abdomen/GI: Soft, non-tender, non-distended Back: No spinal tenderness. No costovertebral tenderness. Full range of motion. Skin: Warm, dry with normal turgor. Normal color with no rashes, no lesions, and no evidence of cellulitis. MS/ Extremity: Pulses equal, no cyanosis. Neurovascular intact. Full, normal range of motion. Neuro: Awake and alert, GCS 15, oriented to person, place, time, and situation. Cranial nerves II-XII grossly intact. Motor strength 5/5 in all extremities. Sensory grossly intact. Cerebellar exam normal. Normal gait. Vital Signs: 12:27 BP 122 / 65; Pulse 86; Resp 19; Temp 99.3(O); Pulse Ox 97% on R/A; Weight 83.91 kg; iw Height 5 ft. 7 in. ; Pain 7/10; 14:38 BP 114 / 65; Pulse 59; Resp 18; Pulse Ox 96% on R/A; ph 15:25 BP 132 / 68; Pulse 59; Resp 18; Temp 97.9; Pulse Ox 98% on R/A; ph 12:27 Body Mass Index 28.97 (83.91 kg, 170.18 cm) iw 12:27 Pain Scale: Adult iw MDM: 12:20 Medical Screening Exam initiated dr5 13:25 External Records Reviewed: EKG 03/26/25 reviewed from previous visit that is similar in dr5 nature. 15:20 Differential Diagnosis: Bronchitis Influenza Upper Respiratory Infection Other COVID, dr5 flu, pneumonia. Data reviewed: vital signs, nurses notes, lab test result(s), CBC, white blood cell count, hemoglobin, hematocrit, platelets, electrolytes, sodium, potassium, chloride, serum bicarbonate, BUN, creatinine, serum glucose, Flu: negative COVID-negative, EKG, radiologic studies, plain films. Consideration of Admission/Observation Escalation of care including admission/observation considered. Admission considered patient found to have pneumonia with fever.. I considered the following discharge prescriptions or medication management in the emergency department I discussed and recommended Over The Counter medications, Medications were administered in the Emergency Department. See MAR. Care significantly affected by the following Social Determinants of Health: Poor access to healthcare and/or lack of insurance, Poor access to transportation, Problems related to employment. Counseling: I had a detailed discussion with the patient and/or guardian regarding the historical points, exam findings, and any diagnostic results supporting the discharge/admit diagnosis, the presence of at least one elevated blood pressure reading (>120/80) during this emergency department visit, lab results, radiology results, the need for outpatient follow up, for definitive care, a family practitioner, to return to the emergency department if symptoms worsen or persist or if there are any questions or concerns that arise at home. Medication response: Toradol, Zofran, normal saline. Response to treatment: the patient's symptoms have markedly improved after treatment, the patient's condition has returned to base line. Special discussion: I discussed with the patient/guardian in detail that at this point there is no indication for admission to the hospital. It is understood, however, that if the symptoms persist or worsen the patient needs to return immediately for re-evaluation. Based on the history and exam findings, there is no indication for further emergent testing or inpatient evaluation. I discussed with the patient/guardian the need to see the primary care provider for further evaluation of the symptoms. ED course: Patient reports he is much better. Recommended alternate Tylenol Motrin as needed for pain. Will prescribe Zofran for nausea and cough medication. Likely viral infection. Recommend patient follow-up with primary care doctor. All questions answered. Strict ER precautions given.. 04/17 12:32 Order name: Basic Metabolic Panel; Complete Time: 13:40 04/17 12:32 Order name: CBC with Diff; Complete Time: 13:06 04/17 12:32 Order name: Troponin HS; Complete Time: 13:40 04/17 12:32 Order name: COVID-19 Ag + Flu A+B Ag; Complete Time: 13:23 04/17 12:32 Order name: XRAY Chest (1 view); Complete Time: 13:44 04/17 12:32 Order name: EKG; Complete Time: 12:33 04/17 12:32 Order name: Cardiac monitoring; Complete Time: 13:11 04/17 12:32 Order name: EKG - Nurse/Tech; Complete Time: 13:11 dr5 04/17 12:32 Order name: IV Saline Lock; Complete Time: 12:58 dr5 04/17 12:32 Order name: Labs collected and sent; Complete Time: 12:58 dr5 04/17 12:32 Order name: O2 Per Protocol; Complete Time: 12:58 dr5 04/17 12:32 Order name: O2 Sat Monitoring; Complete Time: 12:58 dr5 EC:08 Rate is 78 beats/min. Rhythm is regular. QRS [place] is Normal. MA interval is normal at dr5 158 msec. QRS interval is normal at 84 msec. QT interval is normal at 396 msec. Clinical impression: Abnormal EKG without significant change, No change from prior ECG, and No evidence of ischemia. Administered Medications: 13:11 Drug: Ketorolac IVP 15 mg IVP once Route: IVP; Site: right antecubital; ph 14:03 Follow up: Response: No adverse reaction ph 13:11 Drug: Ondansetron IVP 4 mg IVP once; over 2 minutes Route: IVP; Site: right antecubital;ph 14:03 Follow up: Response: No adverse reaction ph 14:02 Drug: NS 0.9% IV 1000 ml IV at 1000 ml once; to be given as a bolus over 60 minutes ph Route: IV; Rate: 1000 ml; Site: right antecubital; 15:25 Follow up: Response: No adverse reaction; IV Status: Completed infusion; IV Intake: ph 1000ml Disposition: 17:49 Co-signature as Attending Physician, Brent Brian MD I reviewed the patient's care rn provided by the Advanced Practice Provider and agree with the diagnosis and treatment plan. Disposition Summary: 04/17/25 15:15 Discharge Ordered Notes: Location: Home dr5 Condition: Stable dr5 Diagnosis - Viral infection, unspecified dr5 Followup: dr5 - With: Emergency Department - When: As needed - Reason: Worsening of condition Followup: dr5 - With: Private Physician - When: 1 - 2 days - Reason: Recheck today's complaints, Continuance of care, Re-evaluation by your physician Discharge Instructions: - Discharge Summary Sheet dr5 - Viral Illness, Adult dr5 Forms: - Medication Reconciliation Form dr5 - Patient Portal Instructions dr5 - Leadership Thank You Letter dr5 Prescriptions: - Bromfed DM 2-30-10 mg/5 mL Oral syrup - administer 10 milliliter ORAL route every 12 hours as needed for cold symptoms; dr5 240 milliliter; Refills: 0, Product Selection Permitted - Zofran 4 mg Oral Tablet - take 1 tablet ORAL route every 12 hours As needed; 20 tablet; Refills: 0, dr5 Product Selection Permitted Signatures: Dispatcher [employer] EDsEtrella Jansen, Brent Burton RN, MD MD rn Hall, Patricia, RN RN ph Rhodes, Law, AUTOMOTIVE ENGINEERING TEACHER-C AUTOMOTIVE ENGINEERING TEACHER-5 Corrections: (The following items were deleted from the chart) 12:33 12:32 BASIC METABOLIC PANEL+C.LAB.BRZ ordered. EDMS EDMS 12:33 12:32 CBC+H.LAB.BRZ ordered. EDMS EDMS 12:33 12:32 Troponin High Sensitivity+C.LAB.BRZ ordered. EDMS EDMS 12:33 12:32 COVID-19 Ag + Flu A+B Ag+I.LAB.BRZ ordered. EDMS EDMS
[2025-04-17 15:46] VITALS: BP 132/68; TEMP 97.9; O2SAT 98
== END 2025-04-17 15:28 | disposition home or self-care (01) ==
LOC: ER 12:16
DX: B34.9 Viral infection, unspecified (principal); E11.9 Type 2 diabetes mellitus without complications; I10 Essential (primary) hypertension; F17.210 Nicotine dependence, cigarettes, uncomplicated; Z11.52 Encounter for screening for COVID-19; Z95.818 Presence of other cardiac implants and grafts
CPT/HCPCS: 96361; 93005; 85025; 80048; 36415; 84484; 71045; 96375; 96374; 99284; 87428; J2405; J7030